=== PATIENT | male | born 1955 | race Caucasian/White ===

== ENCOUNTER → 2017-06-27 | Outpatient (CLI) | payer OTHER | END | disposition home or self-care (01) | LOC: C.LAB 09:08 | DX: Z02.83 Encounter for blood-alcohol and blood-drug test (principal) ==

== ENCOUNTER → 2018-03-06 | Outpatient (CLI) | payer OTHER ==
--- NOTE | 2018-03-06 15:49 | DIAGNOSTIC IMAGING REPORT ---
C-SPINE ROUTINE 4 OR 5 VIEWS HISTORY: 63 years-old Male LEFT SHOULDER PAIN, NECK PAIN ON LT SIDE acute left-sided neck pain with altered mental status COMPARISON: None available TECHNIQUE: 5 views of the cervical spine FINDINGS: No acute fracture or subluxation identified. Moderate intervertebral disc space narrowing with endplate spurring noted at C3-C4, C4-C5, C5-C6 and C6-C7. Mostly mild multilevel facet arthrosis. Degenerative changes result in at least moderate bony neuroforaminal stenosis on the right at C3-C4 and C4-C5 with mild multilevel bony neuroforaminal stenosis seen bilaterally. No prevertebral soft tissue swelling. Atherosclerosis of the carotid vasculature. Imaged lung apices appear clear. IMPRESSION: 1. No acute fracture or subluxation. 2. Degenerative changes as above. The above report was generated using voice recognition software. It may contain grammatical, syntax or spelling errors. Electronically signed by: Josue Foy M.D. 03/06/2018 3:47 PM Dictated Date/Time: 03/06/2018 3:45 PM
--- NOTE | 2018-03-06 15:56 | DIAGNOSTIC IMAGING REPORT ---
L SHOULDER MIN 2 VIEWS ROUTINE CLINICAL HISTORY: 63 years-old Male presenting with LEFT SHOULDER PAIN, NECK PAIN ON LT SIDE. TECHNIQUE: Internal rotation, external rotation, Grashey views of the left shoulder were obtained. COMPARISON: None. FINDINGS: Acromioclavicular and glenohumeral joints congruent. No acute fracture or malalignment. No advanced degenerative change. No radiographic soft tissue abnormality. IMPRESSION: No acute osseous injury. Electronically signed by: Wm Patino M.D. 03/06/2018 3:55 PM Dictated Date/Time: 03/06/2018 3:54 PM
== END | disposition home or self-care (01) ==
LOC: C.RADPV 15:16
PROVIDERS: ATTEND Family Medicine
DX: M25.512 Pain in left shoulder (principal); M54.2 Cervicalgia

== ENCOUNTER → 2018-03-09 | Outpatient (CLI) | payer OTHER ==
--- NOTE | 2018-03-09 21:04 | Myocardial Perfusion Study ---
Myocardial Perfusion Study Rpt Myocardial Perfusion Study Rpt Date of Service 03/09/2018 Myocardial Perfusion Study Rpt Procedure: 1. Myocardial perfusion study performed in multiple views/images 2. Exercise stress ECG Indications: 1. Chest pain Consent: Informed written consent was obtained prior to the procedure. Ordering physician: Dr. Villavicencio Procedural details: For the stress portion of the study, 32 mCi of technetium 99m Cardiolite, injected at 11:00 a.m. on 03/09/2018. 15 minutes following the injection, imaging of the heart was performed in multiple projections. For the rest portion of the study, 11.7 mCi technetium 99m Cardiolite was injected intravenously at 9:15 a.m. on 03/09/2018. 1 hour following the injection, imaging of the heart was performed in the same projections. Exercise stress ECG: Resting ECG demonstrated: Sinus rhythm at 68 bpm. RBBB. LAFB. Maximum heart rate: 130 bpm Resting blood pressure: 126/78 mmHg Maximum blood pressure: 180/64 mmHg Maximal, age-predicted heart rate: 82 % Significant ST changes: None Arrhythmia: None Symptoms: Chest tightness reported 4 minutes into exercise and resolved 4 minutes into recovery. Exercise terminated due to bilateral hip pain. Exercise treadmill: Patient exercised via standard Dylan protocol for a total of 5 minutes, attaining 7 METS. Findings: Rotating raw imaging demonstrated no significant lung uptake. There is no significant motion artifact. Heart size appeared normal. Myocardial perfusion appeared normal without significant fixed or reversible defect to suggest ischemia or infarct. Ejection fraction: 67 % Wall motion: Normal No significant transient ischemic dilation. Impression: 1. Normal myocardial perfusion at 82% MPHR. Target heart rate was not attained. Cannot rule out ischemic changes at faster heart rates. 2. Nondiagnostic exercise ECG as target heart rate was not attained. 3. Normal wall motion and LV systolic function. EF 67%. 4. No arrhythmia. 5. Chest tightness was reported with exercise and resolved during recovery. 6. No infarct suggested. 7. Appropriate blood pressure response to exercise.
== END | disposition home or self-care (01) ==
LOC: C.NUCL 08:44
PROVIDERS: ATTEND Family Medicine
DX: R07.9 Chest pain, unspecified (principal)

== ENCOUNTER 2018-04-02 13:26 | Emergency (ER) | payer OTHER ==
[~2018-04-02] VITALS: Ht 177.8 cm; Wt 71.3 kg
[2018-04-02 13:31] VITALS: TEMP 36.7
[2018-04-02 13:58] VITALS: O2SAT 100
[2018-04-02] MEDS ORDERED: MULTI-VITAMIN INFUSION INJ 10 ML, THIAMINE HCL INJ 100 MG, FoLIC ACID INJ 1 MG in SODIU... IV STA (14:05)
[2018-04-02] MEDS ORDERED: ONDANSETRON INJ 2 MG/ML 2 ML VIAL IV STA (14:07)
[2018-04-02] MEDS ORDERED: MoRPHine SULFATE 2 MG/ML CARP IV STA (14:07)
[2018-04-02 14:17] LABS: HEMATOCRIT 38.1 % (42-52); HEMOGLOBIN 13.5 g/dL (14.0-18.0); MEAN CORPUSCULAR HEMOGLOBIN 33.7 pg (25-34); MEAN CORPUSCULAR HGB CONC 35.4 g/dl (32-36); MEAN PLATELET VOLUME 7.8 fL (7.4-10.4); PLATELET COUNT 450 K/uL (130-400); WHITE BLOOD COUNT 5.84 K/uL (4.8-10.8)
[2018-04-02 14:25] LABS: INR 0.9 (0.9-1.1); PTT PATIENT 28.5 SECONDS (21.0-31.0)
[2018-04-02 14:32] LABS: BLOOD UREA NITROGEN 8 mg/dl (7-18); CALCIUM 8.5 mg/dl (8.5-10.1); CARBON DIOXIDE 25 mmol/L (21-32); CREATININE 0.99 mg/dl (0.60-1.40); GLUCOSE 92 mg/dl (70-99); POTASSIUM 3.6 mmol/L (3.5-5.1); SODIUM 140 mmol/L (136-145)
[2018-04-02 14:35] VITALS: Ht 177.8 cm; Wt 71.3 kg
[2018-04-02 14:37] LABS: CKMB 1.4 ng/ml (0.5-3.6)
--- NOTE | 2018-04-02 14:37 | DIAGNOSTIC IMAGING REPORT ---
HEAD WITHOUT CONTRAST (CT) CLINICAL HISTORY: 63 years-old Male with Stroke. Acute strokelike symptoms with confusion TECHNIQUE: Multiple axial CT images of the head were obtained without contrast. A dose lowering technique was utilized adhering to the principles of ALARA. CT DOSE: 537.48 mGy.cm COMPARISON: None. FINDINGS: No acute intracranial hemorrhage, midline shift, hydrocephalus, territorial ischemia or abnormal extra-axial collection. 9 x 9 mm colloid cyst within the region of the foramen of Monro is seen on image 14 series 2. No associated hydrocephalus identified. Moderate atrophy with some ex vacuo ventriculomegaly. Ill-defined areas of low-attenuation within the subcortical, deep and periventricular white matter suggests chronic microvascular ischemic changes. Cerebral vascular calcifications are seen at the level of the skull base. The calvarium is intact. Minimal mucosal thickening about the ethmoid and maxillary sinuses. Soft tissues are unremarkable. IMPRESSION: 1. No acute intracranial hemorrhage, midline shift or territorial ischemia. 2. 9 mm colloid cyst within the foramen of Monro is present without associated hydrocephalus. This lesion can be associated with positional headaches. 3. Atrophy with chronic microvascular ischemic changes. The above report was generated using voice recognition software. It may contain grammatical, syntax or spelling errors. Electronically signed by: Josue Foy M.D. 04/02/2018 2:36 PM Dictated Date/Time: 04/02/2018 2:30 PM
[2018-04-02] MEDS ORDERED: POTA99TA PO (15:00)
--- NOTE | 2018-04-02 15:02 | DIAGNOSTIC IMAGING REPORT ---
CHEST ONE VIEW PORTABLE HISTORY: Stroke COMPARISON: None. FINDINGS: The lungs are clear. Cardiac silhouette is normal in size. No pleural effusions. No pneumothorax. Old, healed bilateral rib fractures. IMPRESSION: No acute process. Electronically signed by: Charles Narvaez M.D. 04/02/2018 3:01 PM Dictated Date/Time: 04/02/2018 3:00 PM
[2018-04-02 16:46] VITALS: BP 145/88; PULSE 69; O2SAT 97
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
== END 2018-04-02 17:15 | disposition home or self-care (01) ==
LOC: C.EDB 13:27 → C.EDC 17:15
DX: F10.129 Alcohol abuse with intoxication, unspecified (principal); Y90.6 Blood alcohol level of 120-199 mg/100 ml; R07.2 Precordial pain; M79.602 Pain in left arm; I45.2 Bifascicular block; R03.0 Elevated blood-pressure reading, without diagnosis of hypertension; F17.200 Nicotine dependence, unspecified, uncomplicated

== ENCOUNTER 2020-10-04 10:34 | Inpatient (IN) ==
--- OUTSIDE RECORDS SUMMARY | 2020-10-04 10:40 | External Medical Summary | Continuity of Care Document ---
:1955 Author Name Mike Sandoval, Provider Address Unavailable Unavailable , Care Team Providers Name Role Phone Unavailable Unavailable Unavailable SAUD Sandoval, BRICE Unavailable Unavailable Saud Sandoval, Brice Unavailable [email or web address] Unavailable Unavailable Unavailable Assessments Assessed Problems:Encounter for preventive health examination Problems Memory loss (780.93) (R41.3) Left shoulder pain (719.41) (M25.512) Confusion and disorientation (780.97) (R41.0) Neck pain on left side (723.1) (M54.2) Chest pain (786.50) (R07.9) Allergies and Adverse Reactions No Known Drug Allergies (Allergy) Medications Aspirin 325 MG Oral Tablet; 1 tablet 4 times a day natalya hall M.D. Start: 06-Mar-2018 Refills: 0 Multi-Vitamins TABS; TAKE 1 TABLET DAILY. , M.DSergo Start: 02-Apr-2018 Refills: 0 Potassium 99 MG Oral Tablet; TAKE 1 TABLET DAILY. , M.DSergo Start: 02-Apr-2018 Refills: 0 Procedures Procedures not documented Immunizations Immunizations not documented Family History Father Family history of diabetes mellitus (V18.0) (Z83.3) Status: Active Family history of hypertension (V17.49) (Z82.49) Status: Act siomara Family history of cardiac disorder (V17.49) (Z82.49) Status: Active Mother Family history of High cholesterol (272.0) (E78.00) Status: Active Plan of Treatment Planned Observations Planned Goals not documented Results No Known Results Results not documented
--- NOTE | 2020-10-04 10:58 | Emergency Department Note ---
Impression & Plan Adult failure to thrive, Alcohol use, Hypokalemia, Hyponatremia, Ambulatory dysfunction ED Provider Note NAME: ISABEL CARMONA AGE: 65 SEX: M ARRIVES VIA: Ambulance INFORMANT: Patient, ED PROVIDER(S): Kory Todd MD CHIEF COMPLAINT: Weakness PLAN: Disposition: Admit MEDICAL DECISION MAKING: The patient is a pleasant 65-year-old gentleman with a past medical history of alcohol dependence/daily use who presents emergency department with general decline over the past several months which she reports got much more severe over the past several weeks noted by a friend last week that he had slurred speech who presents emergency department with generalized weakness where he feels he is unable to walk and keep his balance. He denies any history of alcohol withdrawal or alcohol withdrawal seizures but he is unable to tell me when the last time he went numerous days without drinking. To me he denies any recent fevers, chest pain, shortness of breath, chills, cough, congestion, nausea, vomit, diarrhea, urinary symptoms. Denies any known contacts with individuals diagnosed with COVID-19. Reports he has had frequent falls in the recent past several weeks may have hit his head. On arrival patient is cachectic, disheveled appearing in no acute distress, afebrile stable vital signs. He appears clinically dry. He has had no overt symptoms of acute alcohol withdrawal at this time. He is moving all extremities equally. [id number] is intact bilaterally. WBC 12.3, nonspecific. H/H 12.6/36.2 without recent values for comparison. Platelets 407, nonspecific. Chemistry without acidosis. Sodium 132 and potassium 3.4. BUN 26 consistent with the patient's clinically dry appearance. Total bilirubin 1.1 and direct bilirubin 0.6, nonspecific in the setting of benign abdomen. LFTs otherwise unremarkable. Ammonia was undetectable. CPK was not elevated. Troponin 0 0.02, within normal limits. TSH within normal limits. UA without convincing evidence of infection. Alcohol level was undetectable. COVID-19 RNA NAAT test was negative. CT of the head was negative for acute traumatic process. There is note of colloid cyst which appears unchanged. There is age-related involutional changes with progressed ex vacuo ventriculomegaly and chronic micro ischemic disease. Upon reevaluation the patient was feeling improved after IV fluid hydration with banana bag and normal saline. His speech was much more fluent and consistent with suspicion of some dysarthria related to his dry cracked mucous membranes/or opharynx. However, upon ambulatory trial the patient still exhibits significant imbalance and ambulatory dysfunction. Therefore reasonable to admit the patient for further evaluation and PT/OT. Patient was agreeable with this. Case was d/w Grace Noguera, [facility], with Dr. Whitley, [facility] will evaluate the patient for admission. Triage Nursing notes reviewed and agree them. Additional history obtained from EMS Prior medical records reviewed Vital Signs: reviewed and remarkable for no significant abnormalities Differential diagnosis: Infection, dehydration, metabolic abnormality, hypo/hyperglycemia, electrolyte disturbance, anemia, hypoxia, cardiac sources, intracerebral event, toxicologic, neurologic, as well as other pathologies. ER treatment provided: See below. Diagnostics interpreted by me: ECG: Normal sinus rhythm, 85 bpm, right bundle branch block, left anterior fascicular block, no overt ST elevation or depression, QTC 480, QRS 118. Cardiac Monitoring: An order for continuous cardiac monitoring was placed and demonstrated normal sinus rhythm, 85 bpm, no ectopy. Laboratory studies: See below Imaging studies: XR chest 1V portable HISTORY: 65 years-old Male Chest Pain acute atypical chest pain COMPARISON: Chest radiograph 04/02/2018 TECHNIQUE: Portable AP view of the chest FINDINGS: Cardiomediastinal and hilar silhouettes are within normal limits. No pneumothorax, pleural effusion, airspace consolidation or overt pulmonary edema. Remote appearing right-sided rib fractures. Subacute appearing nondisplaced frac tures are noted involving the posterior lateral left sixth through 10th ribs. IMPRESSION: 1. No acute cardiopulmonary abnormality. 2. Subacute appearing nondisplaced left posterolateral rib fractures. -- CT head/brain wo con CLINICAL HISTORY: 65 years-old Male with recurrent falls, weakness. Acute weakness with recurrent falls TECHNIQUE: Multiple axial CT images of the head were obtained without contrast. A dose lowering technique was utilized adhering to the principles of ALARA. CT DOSE: 537.48 mGy.cm COMPARISON: Head CT 04/02/2018 FINDINGS: No acute intracranial hemorrhage, midline shift, intra-axial mass, hydrocephalus, territorial ischemia or abnormal extra-axial collection. 9 mm colloid cyst within the foramen of Monro redemonstrated. Age-related involutional changes. Mild ventriculomegaly has slightly progressed from comparison, likely on an ex vacuo basis. Cerebral vascular calcifications. Patchy white matter hypodensities suggestive of chronic microvascular ischemic disease. The calvarium is intact. The paranasal sinuses, mastoid air cells, and middle ear cavities are clear. IMPRESSION: 1. No acute intracranial abnormality. 2. 9 mm colloid cyst within the foramen of Monro is redemonstrated. No definite hydrocephalus. 3. Age-related involutional changes with mildly progressed ex vacuo ventriculomegaly and chronic microvascular ischemic disease. Consultation(s): Case was d/w Grace Noguera, [facility], with Dr. Whitley, [facility] will evaluate the patient for admission. HPI: The patient is a pleasant 65-year-old gentleman with a past medical history of alcohol dependence/daily use who presents emergency department with general decline over the past several months which she reports got much more severe over the past several weeks noted by a friend last week that he had slurred speech who presents emergency department with generalized weakness where he feels he is unable to walk and keep his balance. He denies any history of alcohol withdrawal or alcohol withdrawal seizures but he is unable to tell me when the last time he went numerous days without drinking. To me he denies any recent fevers, chest pain, shortness of breath, chills, cough, congestion, nausea, vomit, diarrhea, urinary symptoms. Denies any known contacts with individuals diagnosed with COVID-19. Reports he has had frequent falls in the recent past several weeks may have hit his head. ROS: See above HPI for pertinent positives & negatives. A total of 10 systems reviewed and were otherwise negative. PAST MEDICAL HISTORY:See Below PAST SURGICAL HISTORY:See Below FAMILY HISTORY:See Below SOCIAL HISTORY:See Below HOME MEDICATIONS:See Below ALLERGIES:See Below VITALS:See Below PHYSICAL EXAMINATION: GENERAL: Awake, alert, unkempt, cachectic-appearing, in no distress HENT: Normocephalic, atraumatic. Oropharynx dry/cracked mucous membranes. EYES: Normal conjunctiva. Sclera non-icteric. EOMI. No nystamgus. PEARRL. NECK: Supple. No nuchal rigidity. FROM. No JVD. RESPIRATORY: Clear to auscultation. CARDIAC: Regular rate, normal rhythm. Extremities warm and well perfused. Pulses equal. ABDOMEN: Soft, non-distended. No tenderness to palpation. No rebound or gua rding. No masses. RECTAL: Deferred. MUSCULOSKELETAL: Chest examination reveals no tenderness. The back is symmetrical on inspection without obvious abnormality. There is no CVA tenderness to palpation. No joint edema. LOWER EXTREMITIES: Calves are equal size bilaterally and non-tender. No edema. No discoloration. NEURO: Normal sensorium. No sensory or motor deficits noted. Generalized weakness with 4+/5 strength x4 extremities. Intact [id number]. DTRs wnl. No clonus. SKIN: No rash or jaundice noted. Kory Todd MD Past Med/Surg History Medical History Alcohol use Social History Smoking Status: Current every day smoker Hx Alcohol Use: Yes Alcohol type: beer, wine and hard liquor Hx Substance Use: No Preferred Language: Maltese Communication Ability: Effective Business Services Sales Agent Required: No Beliefs That Will Affect Care: None Current Living Situation: Family Feels Safe at Home: Yes Safety Concerns: Feels Safe At This Time Assistive Devices: None Allergies Allergies Allergy/AdvReac Type Severity Reaction Status Date / Time No Known Allergies Allergy Unverified 10/04/20 12:32 Home Meds Home Medications Medication Instructions Recorded Confirmed No Known Home Medications 10/04/20 10/04/20 Results & Data (ED) Vital Signs Vital Signs - 24 hr 10/04/20 10:39 10/04/20 10:49 10/04/20 11:10 Temperature 36.6 C Temperature Source Oral Pulse Rate 96 H 83 90 Pulse Rate [Apical] Pulse Rate from SpO2 Sensor Respiratory Rate 14 20 23 Respiratory Effort / Characteristics Non-Labored Spontaneous Respiratory Depth Normal Respiratory Pattern Regular Blood Pressure 112/81 112/81 129/89 Blood Pressure [Right Arm] Blood Pressure Mean 84 91 94 Blood Pressure Mean [Right Arm] Pulse Oximetry 100 100 Oxygen Delivery Method Room Air Sepsis Recent Fever Within 48 Hours No Sepsis New/Unexplained Change in Mental Status No Sepsis Action Taken by Nursing No Action Required 10/04/20 11:11 10/04/20 11:30 10/04/20 11:37 Temperature Temperature Source Pulse Rate 85 93 H Pulse Rate [Apical] Pulse Rate from SpO2 Sensor 84 88 Respiratory Rate 17 21 Respiratory Effort / Characteristics Respiratory Depth Respiratory Pattern Blood Pressure 121/81 121/81 Blood Pressure [Right Arm] Blood Pressure Mean 95 95 Blood Pressure Mean [Right Arm] Pulse Oximetry 100 93 99 Oxygen Delivery Method Room Air Sepsis Recent Fever Within 48 Hours Sepsis New/Unexplained Change in Mental Status Sepsis Action Taken by Nursing 10/04/20 12:00 10/04/20 12:31 10/04/20 13:00 Temperature Temperature Source Pulse Rate 87 90 75 Pulse Rate [Apical] Pulse Rate from SpO2 Sensor 89 92 H Respiratory Rate 18 21 18 Respiratory Effort / Characteristics Respiratory Depth Respiratory Pattern Blood Pressure 134/91 127/85 137/83 Blood Pressure [Right Arm] Blood Pressure Mean 97 89 95 Blood Pressure Mean [Right Arm] Pulse Oximetry 98 100 100 Oxygen Delivery Method Sepsis Recent Fever Within 48 Hours Sepsis New/Unexplained Change in Mental Status Sepsis Action Taken by Nursing 10/04/20 13:30 10/04/20 14:00 10/04/20 15:11 Temperature 36.8 C Temperature Source Oral Pulse Rate 82 79 Pulse Rate [Apical] 78 Pulse Rate from SpO2 Sensor Respiratory Rate 20 18 18 Respiratory Effort / Characteristics Respiratory Depth Respiratory Pattern Blood Pressure 137/83 137/86 Blood Pressure [Right Arm] 147/83 H Blood Pressure Mean 101 99 Blood Pressure Mean [Right Arm] 104 Pulse Oximetry 99 99 Oxygen Delivery Method Room Air Sepsis Recent Fever Within 48 Hours Sepsis New/Unexplained Change in Mental Status Sepsis Action Taken by Nursing 10/04/20 15:55 10/04/20 16:00 10/04/20 16:30 Temperature Temperature Source Pulse Rate 67 73 Pulse Rate [Apical] 94 H Pulse Rate from SpO2 Sensor Respiratory Rate 17 20 20 Respiratory Effort / Characteristics Non-Labored Respiratory Depth Normal Respiratory Pattern Blood Pressure 145/85 H 139/87 Blood Pressure [Right Arm] 143/103 H Blood Pressure Mean 96 93 Blood Pressure Mean [Right Arm] 116 Pulse Oximetry 98 99 97 Oxygen Delivery Method Room Air Sepsis Recent Fever Within 48 Hours Sepsis New/Unexplained Change in Mental Status Sepsis Action Taken by Nursing 10/04/20 16:40 10/04/20 17:02 10/04/20 17:20 Temperature Temperature Source Pulse Rate 73 99 H 74 Pulse Rate [Apical] Pulse Rate from SpO2 Sensor 73 Respiratory Rate 19 23 21 Respiratory Effort / Characteristics Respiratory Depth Respiratory Pattern Blood Pressure 129/36 L Blood Pressure [Right Arm] Blood Pressure Mean 48 Blood Pressure Mean [Right Arm] Pulse Oximetry 98 100 Oxygen Delivery Method Sepsis Recent Fever Within 48 Hours Sepsis New/Unexplained Change in Mental Status Sepsis Action Taken by Nursing 10/04/20 17:30 10/04/20 18:06 Temperature Temperature Source Pulse Rate 74 99 H Pulse Rate [Apical] Pulse Rate from SpO2 Sensor 74 Respiratory Rate 20 24 Respiratory Effort / Characteristics Respiratory Depth Respiratory Pattern Blood Pressure 118/73 129/76 Blood Pressure [Right Arm] Blood Pressure Mean 79 105 Blood Pressure Mean [Right Arm] Pulse Oximetry 100 98 Oxygen Delivery Method Sepsis Recent Fever Within 48 Hours Sepsis New/Unexplained Change in Mental Status Sepsis Action Taken by Nursing Laboratory Data Attestation: I reviewed the patient's lab results. Result diagrams: 10/04/20 20:27 10/04/20 11:40 Lab Results 10/04/20 10/04/20 10/04/20 Range/Units 11:12 11:12 11:40 WBC 12.31 H (4.8-10.8) K/uL RBC 3.83 L (4.7-6.1) M/uL Hgb 12.6 L (14.0-18.0) g/dL Hct 36.2 L (42-52) % MCV 94.5 (80-100) fL MCH 32.9 (25-34) pg MCHC 34.8 (32-36) g/dL RDW Std Deviation 46.8 H (36.4-46.3) fL RDW Coeff of Martha 13.7 (11.5-14.5) % Plt Count 407 H (130-400) K/uL MPV 9.6 (7.4-10.4) fL Immature Gran % (Auto) 0.6 % Neut % (Auto) 75.1 % Lymph % (Auto) 11.4 % [place]andt % (Auto) 12.2 % Eos % (Auto) 0.3 % Baso % (Auto) 0.4 % Neut # (Auto) 9.24 H (1.4-6.5) K/uL Lymph # (Auto) 1.40 (1.2-3.4) K/uL [place]t # (Auto) 1.50 H (0.11-0.59) K/uL Eos # (Auto) 0.04 (0-0.5) K/uL Baso # (Auto) 0.05 (0-0.2) K/uL Immature Gran # (Auto) 0.08 H (0.00-0.02) K/uL PT (9.0-12.0) Seconds INR (0.9-1.1) APTT (21.0-31.0) Seconds PTT Ratio Sodium (136-145) mmol/L Potassium (3.5-5.1) mmol/L Chloride (98-107) mmol/L Carbon Dioxide (21-32) mmol/L Anion Gap (3-11) BUN (7-18) mg/dl Creatinine (0.6-1.4) mg/dl Est Cr Clr Drug Dosing ml/min Est GFR ( Amer) Est GFR (Non-Af Amer) BUN/Creatinine Ratio (10-20) Glucose (70-99) mg/dl Calcium (8.5-10.1) mg/dl Phosphorus (2.5-4.9) mg/dl Magnesium (1.8-2.4) mg/dl Total Bilirubin (0.2-1) mg/dl Direct Bilirubin (0-0.2) mg/dl AST (15-37) U/L ALT (12-78) U/L Alkaline Phosphatase (45-117) U/L Ammonia (11-32) umol/L Total Creatine Kinase (39-308) U/L Troponin I (0-0.045) ng/ml Total Protein (6.4-8.2) gm/dl Albumin (3.4-5.0) gm/dl Globulin (2.5-4.0) gm/dl Albumin/Globulin Ratio (0.9-2) Lipase (73-393) U/L TSH (0.300-4.500) uIu/ml Urine Color Urine Appearance (Clear) Urine pH (4.5-7.5) Ur Specific Baring (1.000-1.030) Urine Protein (Negative) Urine Glucose (UA) (Negative) Urine Ketones (Negative) Urine Blood (Negative) Urine Nitrite (Negative) Urine Bilirubin (Negative) Urine Urobilinogen (Negative) Ur Leukocyte Esterase (Negative) Urine WBC (Auto) (0-5) /hpf Urine RBC (Auto) (0-4) /hpf U Hyaline Cast (Auto) (0-5) /lpf U Epithel Cells (Auto) (0-5) /lpf Urine Bacteria (Auto) (Negative) Ethyl Alcohol mg/dL (0-3) mg/dl COVID-19 Eval [email or web address]-2, RNA, NAAT NEGATIVE (NEGATIVE) 10/04/20 10/04/20 10/04/20 Range/Units 11:40 11:40 11:40 WBC (4.8-10.8) K/uL RBC (4.7-6.1) M/uL Hgb (14.0-18.0) g/dL Hct (42-52) % MCV (80-100) fL MCH (25-34) pg MCHC (32-36) g/dL RDW Std Deviation (36.4-46.3) fL RDW Coeff of Martha (11.5-14.5) % Plt Count (130-400) K/uL MPV (7.4-10.4) fL Immature Gran % (Auto) % Neut % (Auto) % Lymph % (Auto) % [place]andt % (Auto) % Eos % (Auto) % Baso % (Auto) % Neut # (Auto) (1.4-6.5) K/uL Lymph # (Auto) (1.2-3.4) K/uL [place]t # (Auto) (0.11-0.59) K/uL Eos # (Auto) (0-0.5) K/uL Baso # (Auto) (0-0.2) K/uL Immature Gran # (Auto) (0.00-0.02) K/uL PT 11.4 (9.0-12.0) Seconds INR 1.1 (0.9-1.1) APTT 25.5 (21.0-31.0) Seconds PTT Ratio 0.9 Sodium 132 L (136-145) mmol/L Potassium 3.4 L (3.5-5.1) mmol/L Chloride 96 L (98-107) mmol/L Carbon Dioxide 26 (21-32) mmol/L Anion Gap 10.0 (3-11) BUN 26 H (7-18) mg/dl Creatinine 1.00 (0.6-1.4) mg/dl Est Cr Clr Drug Dosing 57.6 ml/min Est GFR ( Amer) 91.8 Est GFR (Non-Af Amer) 79.2 BUN/Creatinine Ratio 25.8 H (10-20) Glucose 111 H (70-99) mg/dl Calcium 9.3 (8.5-10.1) mg/dl Phosphorus 3.8 (2.5-4.9) mg/dl Magnesium 2.2 (1.8-2.4) mg/dl Total Bilirubin 1.1 H (0.2-1) mg/dl Direct Bilirubin 0.6 H (0-0.2) mg/dl AST 16 (15-37) U/L ALT 24 (12-78) U/L Alkaline Phosphatase 78 (45-117) U/L Ammonia < 10.0 L (11-32) umol/L Total Creatine Kinase 15 L (39-308) U/L Troponin I 0.020 (0-0.045) ng/ml Total Protein 7.3 (6.4-8.2) gm/dl Albumin 2.8 L (3.4-5.0) gm/dl Globulin 4.5 H (2.5-4.0) gm/dl Albumin/Globulin Ratio 0.6 L (0.9-2) Lipase 65 L (73-393) U/L TSH 1.370 (0.300-4.500) uIu/ml Urine Color Urine Appearance (Clear) Urine pH (4.5-7.5) Ur Specific Baring (1.000-1.030) Urine Protein (Negative) Urine Glucose (UA) (Negative) Urine Ketones (Negative) Urine Blood (Negative) Urine Nitrite (Negative) Urine Bilirubin (Negative) Urine Urobilinogen (Negative) Ur Leukocyte Esterase (Negative) Urine WBC (Auto) (0-5) /hpf Urine RBC (Auto) (0-4) /hpf U Hyaline Cast (Auto) (0-5) /lpf U Epithel Cells (Auto) (0-5) /lpf Urine Bacteria (Auto) (Negative) Ethyl Alcohol mg/dL (0-3) mg/dl COVID-19 Eval Order SARS-CoV-2, RNA, NAAT (NEGATIVE) 10/04/20 10/04/20 Range/Units 11:40 15:55 WBC (4.8-10.8) K/uL RBC (4.7-6.1) M/uL Hgb (14.0-18.0) g/dL Hct (42-52) % MCV (80-100) fL MCH (25-34) pg MCHC (32-36) g/dL RDW Std Deviation (36.4-46.3) fL RDW Coeff of Martha (11.5-14.5) % Plt Count (130-400) K/uL MPV (7.4-10.4) fL Immature Gran % (Auto) % Neut % (Auto) % Lymph % (Auto) % [place]t % (Auto) % Eos % (Auto) % Baso % (Auto) % Neut # (Auto) (1.4-6.5) K/uL Lymph # (Auto) (1.2-3.4) K/uL [place]t # (Auto) (0.11-0.59) K/uL Eos # (Auto) (0-0.5) K/uL Baso # (Auto) (0-0.2) K/uL Immature Gran # (Auto) (0.00-0.02) K/uL PT (9.0-12.0) Seconds INR (0.9-1.1) APTT (21.0-31.0) Seconds PTT Ratio Sodium (136-145) mmol/L Potassium (3.5-5.1) mmol/L Chloride (98-107) mmol/L Carbon Dioxide (21-32) mmol/L Anion Gap (3-11) BUN (7-18) mg/dl Creatinine (0.6-1.4) mg/dl Est Cr Clr Drug Dosing ml/min Est GFR ( Amer) Est GFR (Non-Af Amer) BUN/Creatinine Ratio (10-20) Glucose (70-99) mg/dl Calcium (8.5-10.1) mg/dl Phosphorus (2.5-4.9) mg/dl Magnesium (1.8-2.4) mg/dl Total Bilirubin (0.2-1) mg/dl Direct Bilirubin (0-0.2) mg/dl AST (15-37) U/L ALT (12-78) U/L Alkaline Phosphatase (45-117) U/L Ammonia (11-32) umol/L Total Creatine Kinase (39-308) U/L Troponin I (0-0.045) ng/ml Total Protein (6.4-8.2) gm/dl Albumin (3.4-5.0) gm/dl Globulin (2.5-4.0) gm/dl Albumin/Globulin Ratio (0.9-2) Lipase (73-393) U/L TSH (0.300-4.500) uIu/ml Urine Color Dark Yellow Urine Appearance Clear (Clear) Urine pH 5.5 (4.5-7.5) Ur Specific Baring 1.022 (1.000-1.030) Urine Protein Negative (Negative) Urine Glucose (UA) Negative (Negative) Urine Ketones 1+ H (Negative) Urine Blood Negative (Negative) Urine Nitrite Negative (Negative) Urine Bilirubin Negative (Negative) Urine Urobilinogen Positive H (Negative) Ur Leukocyte Esterase Trace H (Negative) Urine WBC (Auto) 1-5 (0-5) /hpf Urine RBC (Auto) 0-4 (0-4) /hpf U Hyaline Cast (Auto) 5-10 H (0-5) /lpf U Epithel Cells (Auto) 10-20 H (0-5) /lpf Urine Bacteria (Auto) Negative (Negative) Ethyl Alcohol mg/dL < 3.0 (0-3) mg/dl COVID-19 Eval Order SARS-CoV-2, RNA, NAAT (NEGATIVE) Administered Medications Enoxaparin Sodium (Enoxaparin Inj 40 Mg/0.4 Ml Syr) 40 mg SQ Q24H NIKO Stop: 11/03/20 21:59 Last Admin: 10/04/20 21:27 Dose: 40 mg Documented by: [id number] Lactated Ringer's (Lr) 1,000 mls @ 100 mls/hr IV .Q10H NIKO Stop: 11/03/20 20:18 Last Admin: 10/04/20 21:23 Dose: 100 mls/hr Documented by: [id number] Discontinued Medications Multivitamins 10 ml/ Thiamine HCl 100 mg/ Folic Acid 1 mg/Sodium Chloride 1,011.2 mls @ 1,011.2 mls/hr IV .Q1H ONE Stop: 10/04/20 12:09 Last Infusion: 10/04/20 14:20 Dose: 0 mls/hr Documented by: [id number] Admin: 10/04/20 12:51 Dose: 1,011.2 mls/hr Documented by: [id number] Sodium Chloride (Nss 1000ml) 1,000 mls @ 999 mls/hr IV .Q1H1M ONE Stop: 10/04/20 14:43 Last Infusion: 10/04/20 15:35 Dose: 0 mls/hr Documented by: [id number] Admin: 10/04/20 14:19 Dose: 999 mls/hr Documented by: [id number] Potassium Chloride (Potassium Chloride 20 Meq/15 Ml Udc) 20 meq PO NOW ONE Stop: 10/04/20 21:01 Last Admin: 10/04/20 21:27 Dose: 20 meq Documented by: [id number] Discharge Plan Visit Data Chief Complaint: Illness ED Provider: Kory Todd Discharge Problem: Adult failure to thrive, Alcohol use, Hypokalemia, Hyponatremia, Ambulatory dysfunction Patient Disposition: Admitted As Inpatient Discharge Instructions Interventions: ED Discharge Assessment Last Done: 10/04/20 19:33
[2020-10-04] MEDS ORDERED: MULTI-VITAMIN INFUSION 10 ML, THIAMINE HCL 100 MG, FOLIC ACID 1 MG in SODIUM CHLORIDE 0... IV ONE (11:10)
--- NOTE | 2020-10-04 11:34 | XRay Report ---
XR chest 1V portable HISTORY: 65 years-old Male Chest Pain acute atypical chest pain COMPARISON: Chest radiograph 04/02/2018 TECHNIQUE: Portable AP view of the chest FINDINGS: Cardiomediastinal and hilar silhouettes are within normal limits. No pneumothorax, pleural effusion, airspace consolidation or overt pulmonary edema. Remote appearing right-sided rib fractures. Subacute appearing nondisplaced fractures are noted involving the posterior lateral left sixth through 10th r ibs. IMPRESSION: 1. No acute cardiopulmonary abnormality. 2. Subacute appearing nondisplaced left posterolateral rib fractures. ACT 112: Negative or not required by law. The above report was generated using voice recognition software. It may contain grammatical, syntax o r spelling errors. Electronically signed by: Josue Foy M.D. 10/04/2020 11:33 AM
[2020-10-04 11:57] LABS: Basophils # (auto) 0.05 K/uL (0-0.2); Basophils % (auto) 0.4 %; Eosinophils # (auto) 0.04 K/uL (0-0.5); Eosinophils % (auto) 0.3 %; Hematocrit (blood only) 36.2 % (42-52); Hemoglobin 12.6 g/dL (14.0-18.0); Immature Granulocytes # (auto) 0.08 K/uL (0.00-0.02); Immature Granulocytes % (auto) 0.6 %; Lymphocytes % (auto) 11.4 %; Mean Corpuscular Hemoglobin 32.9 pg (25-34); Mean Corpuscular Hgb Conc 34.8 g/dL (32-36); Mean Corpuscular Volume 94.5 fL (80-100); Mean Platelet Volume 9.6 fL (7.4-10.4); Monocytes % (auto) 12.2 %; Neutrophils # (auto) 9.24 K/uL (1.4-6.5); Neutrophils % (auto) 75.1 %; Platelet Count 407 K/uL (130-400); RDW Coefficient of Variation 13.7 % (11.5-14.5); RDW Standard Deviation 46.8 fL (36.4-46.3); Red Blood Count 3.83 M/uL (4.7-6.1); White Blood Count 12.31 K/uL (4.8-10.8)
[2020-10-04 12:09] LABS: INR 1.1 (0.9-1.1); Partial Thromboplastin Ratio 0.9; Partial Thromboplastin Time 25.5 Seconds (21.0-31.0); Prothrombin Time 11.4 Seconds (9.0-12.0)
[2020-10-04 12:14] LABS: Albumin Level 2.8 gm/dl (3.4-5.0); BUN Creatinine Ratio 25.8 (10-20); Bilirubin Direct 0.6 mg/dl (0-0.2); Calcium 9.3 mg/dl (8.5-10.1); Creatinine Clr Calc Pharmacy 57.6 ml/min; Est GFR (African American) 91.8; Est GFR (Non-African American) 79.2; Magnesium 2.2 mg/dl (1.8-2.4); Potassium 3.4 mmol/L (3.5-5.1)
[2020-10-04 12:23] LABS: Albumin Globulin Ratio 0.6 (0.9-2); Bilirubin,Total 1.1 mg/dl (0.2-1); Globulin 4.5 gm/dl (2.5-4.0); Phosphorus 3.8 mg/dl (2.5-4.9); Thyroid Stimulating Hormone 1.37 uIu/ml (0.300-4.500); Total Protein 7.3 gm/dl (6.4-8.2); Troponin I 0.02 ng/ml (0-0.045)
--- NOTE | 2020-10-04 12:31 | CT Scan Report ---
CT head/brain wo con CLINICAL HISTORY: 65 years-old Male with recurrent falls, weakness. Acute weakness with recurrent fa lls TECHNIQUE: Multiple axial CT images of the head were obtained without contrast. A dose lowering tech nique was utilized adhering to the principles of ALARA. CT DOSE: 537.48 mGy.cm COMPARISON: Head CT 04/02/2018 FINDINGS: No acute intracranial hemorrhage, midline shift, intra-axial mass, hydrocephalus, territorial ischemi a or abnormal extra-axial collection. 9 mm colloid cyst within the foramen of Monro redemonstrated. A ge-related involutional changes. Mild ventriculomegaly has slightly progressed from comparison, likel y on an ex vacuo basis. Cerebral vascular calcifications. Patchy white matter hypodensities suggestiv e of chronic microvascular ischemic disease. The calvarium is intact. The paranasal sinuses, mastoid air cells, and middle ear cavities are clear . IMPRESSION: 1. No acute intracranial abnormality. 2. 9 mm colloid cyst within the foramen of Monro is redemonstrated. No definite hydrocephalus. 3. Age-related involutional changes with mildly progressed ex vacuo ventriculomegaly and chronic micr ovascular ischemic disease. ACT 112: Negative or not required by law. The above report was generated using voice recognition software. It may contain grammatical, syntax o r spelling errors. Electronically signed by: Josue Foy M.D. 10/04/2020 12:30 PM
[2020-10-04] MEDS ORDERED: SODIUM CHLORIDE 0.9% 1000ML 1,000 ML IV ONE (13:43)
[2020-10-04 16:17] LABS: Appearance Urine Clear (Clear); Bacteria Urine Automated Negative (Negative); Blood Urine Negative (Negative); Color Urine Dark Yellow; Glucose Urine UA Negative (Negative); Ketones Urine 1+ (Negative); Leukocyte Esterase Urine Trace (Negative); Nitrite Urine Negative (Negative); Protein Urine Negative (Negative); RBC Urine Automated 0-4 /hpf (0-4); Specific Gravity Urine 1.022 (1.000-1.030); Urobilinogen Urine Positive (Negative); pH Urine 5.5 (4.5-7.5)
[2020-10-04 16:35] LABS: Bilirubin Urine Negative (Negative); Ictotest Urine Negative (Negative)
--- NOTE | 2020-10-04 18:06 | History & Physical Report ---
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 No definite hydrocephalus. PT/OT (2) Abnormality of tongue: Patient noticed this over the last few months. He also has dysphagia and dysarthria. Concern for malignancy given history of heavy smoking and alcohol use Consult ENT for biopsy/evaluation Full liquid diet - patient reports trouble swallowing solids but not liquids (3) Alcohol use: Ongoing, patient drinks 3-5 beers per day which he says is a reduction in intake Supplement thiamine and folate Monitor for withdrawal symptoms - patient reports he has not had alcohol in about 3 days and has never had withdrawal symptoms in the past (4) Leukocytosis: Unclear etiology, urine does not appear infected, CXR without acute finding. Afebrile. If leukocytosis persists after adequate hydration could consider blood cultures. (5) Thrombocytosis: Possibly chronic, last value in March was 450 (6) Hypokalemia: Replaced (7) Hyponatremia: Na 133, recheck am . (8) DVT prophylaxis: Enoxaparin History of Present Illness Mr. Keller presents for failure to thrive, brought by a friend. He has felt generally weak with loss of appetite for months. He also has had increased dysarthria and difficulty swallowing solids. He denies aches, chills, fevers, chest pain, palpitations, sob, cough, n/v/d, dysuria, hesitancy, or rash. Pmhx: none Social: lives alone, retired [employer], 2 ppd smoker x 40 years, drinks 3-5 beers/day which is a decrease from previous heavier drinking, Family: Alzheimers, stroke Primary Care Provider: Madhuri Villavicencio MD Allergies Allergy/AdvReac Type Severity Reaction Status Date / Time No Known Allergies Allergy Unverified 10/04/20 12:32 Home Medications Home Medications Medication Instructions Recorded Confirmed Type No Known Home Medications 10/04/20 10/04/20 History Past Med/Surg History Social History Smoking Status: Current every day smoker Preferred Language: Chinese Feels Safe at Home: Yes Review of Systems Review of Systems: All systems reviewed & are unremarkable except as noted in HPI & below Physical Exam Physical Exam: General: no distress, cachectic Eyes: normal inspection, PERLL EENT: + Tongue is deformed and patient is unable to protrude his tongue from his mouth Respiratory: chest non tender, clear to auscultation, normal breath sounds, no respiratory distress, no accessory muscle use Cardiac: regular rate and rhythm, no rub or gallop, no murmur, no edema, no jvd GI/: active bowel sounds, no abd pain or tenderness, soft, non distended Extremities: normal range of motion, normal strength, non tender Neuro/Psych: alert and oriented x 3, normal mood and affect, unable to assess tongue midline due to deformity otherwise CN II - XII intact, dysarthric Skin: normal color, dry Results & Data Results & Data ([facility]) Vital Signs (Past 12 Hours) Vital Signs Temp Pulse Pulse Resp BP BP Pulse Ox 10/04/20 17:30 74 20 118/73 100 10/04/20 17:20 74 21 100 10/04/20 17:02 99 H 23 129/36 L 98 10/04/20 16:40 73 19 10/04/20 16:30 73 20 139/87 97 10/04/20 16:00 67 20 145/85 H 99 10/04/20 15:55 94 H 17 143/103 H 98 10/04/20 15:11 36.8 C 78 18 147/83 H 99 10/04/20 14:00 79 18 137/86 99 10/04/20 13:30 82 20 137/83 10/04/20 13:00 75 18 137/83 100 10/04/20 12:31 90 21 127/85 100 10/04/20 12:00 87 18 134/91 98 10/04/20 11:37 93 H 21 121/81 99 10/04/20 11:30 85 17 121/81 93 10/04/20 11:11 100 10/04/20 11:10 90 23 129/89 100 10/04/20 10:49 36.6 C 83 20 112/81 100 10/04/20 10:39 96 H 14 112/81 Supervising Physician Co-Signing Physician Notes I supervised Grace Noguera NP on this patient's care. I examined the patient today independently of her. I discussed the plan of care with her with the plan being as written in her note except for any following changes/exceptions: None. 65yo M w/ failure to thrive due in part to significant alcohol consumption. Tongue lesion and dysarthria are concerning for tongue malignancy. Will monitor for withdrawal, get PT/OT, and ENT consult for the tongue lesion. PG Care Time/CCT Total # of Minutes Spent Total Time Spent with Patient: Total time spent is greater than 50% in coordination of care (as documented) at patient's floor/unit and/or counseling patient: Coding Level of Care Code 12542 Initial Inpt Care Lvl 3 Diagnoses Adult failure to thrive R62.7 Abnormality of tongue Q38.3 Alcohol use Z78.9 Leukocytosis D72.829 Thrombocytosis D47.3 Hypokalemia E87.6 Hyponatremia E87.1 DVT prophylaxis Z29.9
[2020-10-04] MEDS ORDERED: POLYETHYLENE (MIRALAX) 17 GM PACK PO PRN (20:19)
[2020-10-04] MEDS ORDERED: ACETAMINOPHEN 325 MG TAB PO PRN (20:19)
--- NOTE | 2020-10-04 20:27 | Electrocardiogram Report ---
Test Reason : Blood Pressure : / mmHG Vent. Rate : 085 BPM Atrial Rate : 085 BPM P-R Int : 136 ms QRS Dur : 118 ms QT Int : 404 ms P-R-T Axes : 078 -70 065 degrees QTc Int : 480 ms Normal sinus rhythm Low voltage QRS Right bundle branch block Left anterior fascicular block Bifascicular block Cannot rule out Inferior infarct (cited on or before 02-APR-2018) Abnormal ECG When compared with ECG of 02-APR-2018 13:48, No significant change Confirmed by Benjamin Pittman ([id number]) on 10/04/2020 8:27:09 PM Referred By: REFERRED SELF Confirmed By:Benjamin Pittman
[2020-10-04 20:36] LABS: Basophils # (auto) 0.04 K/uL (0-0.2); Basophils % (auto) 0.5 %; Eosinophils # (auto) 0.04 K/uL (0-0.5); Eosinophils % (auto) 0.5 %; Hematocrit (blood only) 30.6 % (42-52); Hemoglobin 10.8 g/dL (14.0-18.0); Immature Granulocytes # (auto) 0.04 K/uL (0.00-0.02); Immature Granulocytes % (auto) 0.5 %; Lymphocytes # (auto) 1.64 K/uL (1.2-3.4); Lymphocytes % (auto) 18.8 %; Mean Corpuscular Hemoglobin 33.3 pg (25-34); Mean Corpuscular Hgb Conc 35.3 g/dL (32-36); Mean Corpuscular Volume 94.4 fL (80-100); Mean Platelet Volume 9.5 fL (7.4-10.4); Monocytes # (auto) 1.19 K/uL (0.11-0.59); Monocytes % (auto) 13.6 %; Neutrophils # (auto) 5.79 K/uL (1.4-6.5); Neutrophils % (auto) 66.1 %; Platelet Count 366 K/uL (130-400); RDW Coefficient of Variation 13.5 % (11.5-14.5); RDW Standard Deviation 46.7 fL (36.4-46.3); Red Blood Count 3.24 M/uL (4.7-6.1); White Blood Count 8.74 K/uL (4.8-10.8)
[2020-10-04] MEDS ORDERED: POTASSIUM CHLORIDE 20 MEQ/15 ML UDC PO ONE (21:00)
[2020-10-04] MEDS: LACTATED RINGER'S 1,000 ML IV SCH (21:23)
[2020-10-04] MEDS: ENOXAPARIN INJ 40 MG/0.4 ML SYR SQ SCH (21:27)
[2020-10-05] MEDS: LACTATED RINGER'S 1,000 ML IV SCH (06:23)
[2020-10-05 07:05] LABS: Hematocrit (blood only) 28.8 % (42-52); Hemoglobin 9.9 g/dL (14.0-18.0); Mean Corpuscular Hemoglobin 32.7 pg (25-34); Mean Corpuscular Hgb Conc 34.4 g/dL (32-36); Mean Platelet Volume 9.4 fL (7.4-10.4); Platelet Count 342 K/uL (130-400); RDW Coefficient of Variation 13.8 % (11.5-14.5); RDW Standard Deviation 47.3 fL (36.4-46.3); Red Blood Count 3.03 M/uL (4.7-6.1); White Blood Count 6.22 K/uL (4.8-10.8)
[2020-10-05 08:01] LABS: BUN Creatinine Ratio 21.2 (10-20); Creatinine Clr Calc Pharmacy 71.2 ml/min; Est GFR (African American) 108.9; Est GFR (Non-African American) 93.9; Potassium 2.8 mmol/L (3.5-5.1)
[2020-10-05] MEDS: THIAMINE HCL 100 MG TAB PO SCH (08:42)
[2020-10-05] MEDS: FOLIC ACID 400 MCG TAB PO SCH (08:42)
--- NOTE | 2020-10-05 16:03 | Hospitalist Progress Note ---
Date of Service October 05, 2020 Assessment & Plan (1) Adult failure to thrive: Patient with decreased strength and appetite over the last few months due to alcohol. 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 No definite hydrocephalus. - PT/OT - Alcohol cessation (2) Abnormality of tongue: Patient noticed this over the last few months. He also has dysphagia and dysarthria. Concern for malignancy given history of heavy smoking and alcohol use - Consult ENT for biopsy/evaluation - Full liquid diet - patient reports trouble swallowing solids but not liquids (3) Anemia: Hgb generally low-normal at 13.5. Down from 12.5 on admission to 9.9 today. Suspect poor bone marrow response. Will get anemia labs in the AM. - Monitor (4) Alcohol use: Ongoing, patient drinks 3-5 beers per day which he says is a reduction in intake. Per his son, I - Supplement thiamine and folate - Monitor for withdrawal symptoms - patient reports he has not had alcohol in about 3 days and has never had withdrawal symptoms in the past (5) DVT prophylaxis: Enoxaparin Admission and Anticipated Discharge Date Admission Date: October 04, 2020 Subjective No major concerns today. He is fairly hungry. Reports no fevers/chills, chest pain, shortness of breath, abdominal pain, nausea, or vomiting. Physical Exam Constitutional: WD/WN, vitals as above Eyes: EOM intact bilaterally; no conjunctival abnormality ENMT: Mouth / Teeth: 1. Growth on the left side of the tongue. Neck: trachea midline, no thyromegaly + abnormal visual inspection and no tracheal deviation Respiratory: normal respiratory effort, lungs clear to auscultation no respiratory distress Cardiovascular: RRR, no murmur, no edema Gastrointestinal (Abdomen): Inspection/Auscultation: abdomen normal to inspection; abdomen not distended Musculoskeletal: no cyanosis or clubbing, extremities motor strength 5/5 Skin: no rashes, warm and dry Neurologic: moves all extremities and awake Psychiatric: Orientation: alert, oriented to person and cooperative Results & Data Results & Data ([facility]) Vital Signs (Past 12 Hours) Vital Signs Temp Pulse Resp BP Pulse Ox 10/05/20 15:51 37.2 C 72 17 114/71 98 10/05/20 07:40 36.8 C 71 16 120/75 99 PG Care Time/CCT Total # of Minutes Spent Total Time Spent with Patient: Total time spent is greater than 50% in coordination of care (as documented) at patient's floor/unit and/or counseling patient: Coding Level of Care Code 46933 Subseq Hosp Care Lvl 3 Diagnoses Adult failure to thrive R62.7 Abnormality of tongue Q38.3 Anemia D64.9 Alcohol use Z78.9 DVT prophylaxis Z29.9
[2020-10-05] MEDS: POTASSIUM CHLORIDE 40 MEQ in LACTATED RINGER'S 1,000 ML IV SCH (17:04)
[2020-10-05] MEDS: POTASSIUM CHLORIDE / WTR 10 MEQ/100 ML PLCT IV SCH ×4 (17:04→23:23)
[2020-10-05] MEDS: MAGNESIUM SULFATE / D5W 1 GM/100 ML BAG IV SCH ×3 (17:04→21:16)
[2020-10-05] MEDS: ENOXAPARIN INJ 40 MG/0.4 ML SYR SQ SCH (21:16)
[2020-10-06] MEDS: POTASSIUM CHLORIDE 40 MEQ in LACTATED RINGER'S 1,000 ML IV SCH ×3 (05:05→19:01)
[2020-10-06 07:29] LABS: Hematocrit (blood only) 26.2 % (42-52); Hemoglobin 9.1 g/dL (14.0-18.0); Mean Corpuscular Hemoglobin 32.9 pg (25-34); Mean Corpuscular Hgb Conc 34.7 g/dL (32-36); Mean Corpuscular Volume 94.6 fL (80-100); Mean Platelet Volume 9.7 fL (7.4-10.4); Platelet Count 359 K/uL (130-400); RDW Coefficient of Variation 13.4 % (11.5-14.5); RDW Standard Deviation 46.5 fL (36.4-46.3); Red Blood Count 2.77 M/uL (4.7-6.1); White Blood Count 5.41 K/uL (4.8-10.8)
[2020-10-06] MEDS ORDERED: COUGH DROP (SUGAR FREE) LOZ 24 LOZ/1 BOX BUCCAL ONE (07:51)
[2020-10-06] MEDS: THIAMINE HCL 100 MG TAB PO SCH (07:52)
[2020-10-06] MEDS: FOLIC ACID 400 MCG TAB PO SCH (07:52)
[2020-10-06] MEDS ORDERED: COUGH DROP (SUGAR FREE) LOZ 24 LOZ/1 BOX BUCCAL PRN (07:53)
[2020-10-06 08:15] LABS: Albumin Globulin Ratio 0.6 (0.9-2); BUN Creatinine Ratio 10.2 (10-20); Bilirubin,Total 0.6 mg/dl (0.2-1); Calcium 8.2 mg/dl (8.5-10.1); Est GFR (African American) 114.3; Est GFR (Non-African American) 98.6; Globulin 3.3 gm/dl (2.5-4.0); Phosphorus 1.9 mg/dl (2.5-4.9); Potassium 3.4 mmol/L (3.5-5.1); Total Protein 5.3 gm/dl (6.4-8.2)
--- NOTE | 2020-10-06 13:47 | Hospitalist Progress Note ---
Date of Service October 06, 2020 Assessment & Plan (1) Abnormality of tongue: Patient noticed this over the last few months. He also has dysphagia and dysarthria. Concern for malignancy given history of heavy smoking and alcohol use - Mechanical soft diet - patient reports trouble swallowing solids but not liquids, so will keep diet soft. - Consult ENT for biopsy/evaluation -> Still pending; typing secretary re-contacted Dr. Marie on 10/06 as did I. (2) Adult failure to thrive: Patient with decreased strength and appetite over the last few months due to alcohol. 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 No definite hydrocephalus. - PT/OT - Alcohol cessation (3) Anemia: Hgb generally low-normal at 13.5. Down from 12.5 on admission to 9.9 today. Suspect poor bone marrow response. Will get anemia labs in the AM. - Monitor (4) Alcohol use: Ongoing, patient drinks 3-5 beers per day which he says is a reduction in intake. Per his son, I - Supplement thiamine and folate - Monitor for withdrawal symptoms - patient reports he has not had alcohol in about 3 days and has never had withdrawal symptoms in the past. - None seen today. (5) DVT prophylaxis: Enoxaparin Admission and Anticipated Discharge Date Admission Date: October 04, 2020 Subjective No focal concerns today. He is having some pain in the top of his tongue. Reports no fevers/chills, chest pain, shortness of breath, abdominal pain, nausea, or vomiting. Physical Exam Constitutional: WD/WN, vitals as above Eyes: EOM intact bilaterally; no conjunctival abnormality ENMT: Mouth / Teeth: 1. Mass Neck: trachea midline, no thyromegaly + abnormal visual inspection and no tracheal deviation Respiratory: normal respiratory effort, lungs clear to auscultation no respiratory distress Cardiovascular: RRR, no murmur, no edema Gastrointestinal (Abdomen): Inspection/Auscultation: abdomen normal to inspection; abdomen not distended Musculoskeletal: no cyanosis or clubbing, extremities motor strength 5/5 Skin: no rashes, warm and dry Neurologic: moves all extremities and awake Psychiatric: Orientation: alert, oriented to person and cooperative Results & Data Results & Data ([facility]) Vital Signs (Past 12 Hours) Vital Signs Temp Pulse Resp BP Pulse Ox 10/06/20 07:38 36.9 C 78 16 124/74 96 PG Care Time/CCT Total # of Minutes Spent Total Time Spent with Patient: Total time spent is greater than 50% in coordination of care (as documented) at patient's floor/unit and/or counseling patient: Coding Level of Care Code 06329 Subseq Hosp Care Lvl 2 Diagnoses Abnormality of tongue Q38.3 Adult failure to thrive R62.7 Anemia D64.9 Alcohol use Z78.9 DVT prophylaxis Z29.9
[2020-10-06] MEDS ORDERED: POTASSIUM PHOS 3 MMOL/1 ML INFUSION IV STA (13:48)
[2020-10-06] MEDS ORDERED: POTASSIUM PHOSPHATE 24 MMOL in SODIUM CHLORIDE 0.9% 500 ML IV ONE (14:15)
[2020-10-06] MEDS ORDERED: IOVERSOL 100ml IV ONE (16:28)
--- NOTE | 2020-10-06 16:51 | CT Scan Report ---
CT soft tissue neck w con HISTORY: 65 years-old Male Tongue mass patient presents with a mass of the tongue COMPARISON: None TECHNIQUE: Multiple axial CT images of the soft tissues of the neck were obtained following the intra venous administration of 94 mL Optiray 320. A dose lowering technique was used consistent with the pr incipals of DINA. FINDINGS: There is a large centrally necrotic and peripherally enhancing mass within the left aspect of the ora l cavity which appears to involve the tongue and buccal mucosa extending into the left submandibular tissues overall measuring approximately 3.2 x 5.6 x 5.0 cm (please see bookmarks). The mass crosses t he midline at the level of the mid oral cavity. Mild soft tissue thickening within left aspect of the palate may reflect disease extension. The mass extends into the musculature within the floor of the oral cavity and causes mass effect with partial effacement of the left vallecula and piriform sinus e xtending into the palatine tonsils on the left. Pathologic 0.9 x 1.9 cm left submandibular lymph node . The airway is patent. The glottis and subglottic airway is unremarkable. Unremarkable thyroid. No a dditional pathologic adenopathy identified. Lung apices are clear. No pneumothorax or pulmonary metastasis identified. The imaged intracranial st ructures are unremarkable. Mastoid air cells are clear. Mild mucoperiosteal thickening of the paranas al sinuses. Multilevel degenerative changes of the cervical spine. No suspicious bone lesions identif ied. Mixed plaque of the carotid bulbs and proximal internal carotid arteries. IMPRESSION: 1. Large complex and centrally necrotic mass of the oral cavity centered within the left aspect of th e tongue crosses midline, measures up to approximately 5.6 cm and involves the buccal mucosa and exte nds into the tongue base and floor of the mouth causing mass effect and partial effacement of the lef t vallecula and piriform sinus. Primary head and neck carcinoma such as squamous cell carcinoma is th e diagnosis of exclusion. 2. Pathologic left level I lymph node suggests lymphatic metastasis. 3. Patent airway. ACT 112: Negative or not required by law. The above report was generated using voice recognition software. It may contain grammatical, syntax o r spelling errors. Electronically signed by: Josue Foy M.D. 10/06/2020 4:50 PM
[2020-10-06] MEDS: ENOXAPARIN INJ 40 MG/0.4 ML SYR SQ SCH (22:05)
[2020-10-07] MEDS: POTASSIUM CHLORIDE 40 MEQ in LACTATED RINGER'S 1,000 ML IV SCH ×3 (00:21→20:59)
[2020-10-07] MEDS: THIAMINE HCL 100 MG TAB PO SCH (09:17)
[2020-10-07] MEDS: FOLIC ACID 400 MCG TAB PO SCH (09:17)
--- NOTE | 2020-10-07 09:28 | ENT Consultation ---
Date of Consultation October 07, 2020 Assessment & Plan (1) Squamous cell carcinoma of dorsal tongue: 65-year-old male with a [id number] SCC of the tongue and floor of mouth. - biopsy performed as described above. - patient airway is currently stable. That said with the start of treatment w hether it be surgical or chemoradiation he will need a tracheotomy. In addition with his malnutrition and failure to thrive due to the inability to tolerate p.o. he should also have a PEG tube placed. - he will need an awake tracheotomy as direct laryngoscopy for intubation will likely cause the tongue to fall part from his obvious necrosis - discussed the patient with my partner at [facility], Dr. Guy, head neck surgery. He recommended transferring the patient to [facility] for awake trach and PEG placement. - discussed with admitting team. Present on Admission?: Yes History of Present Illness Attending Physician: Osito Martinez History of Present Illness 65-year-old male who was admitted on Monday for failure to thrive, inability to tolerate p.o. intake. Patient states this has been going on for approximately 2 months now. Otolaryngology was consulted last night for evaluation of his oral cavity as admitting hospitalist noted a tongue lesion. CT scan of the neck was obtained at my direction. This revealed a 5 cm oral tongue/floor of mouth tumor with a left level 3 lymph node noted as well. The tumor is noted to be necrotic on CT scan. Patient states that he has no difficulty breathing but can only tolerate liquids. He smokes a pack a day of cigarettes for approximately the past 50 years. In addition he drinks 3-6 beers daily. Denies any specific alleviating or exacerbating factors. No other signs or symptoms other than was described above. Allergies Allergy/AdvReac Type Severity Reaction Status Date / Time No Known Allergies Allergy Unverified 10/04/20 12:32 Home Medications Medication Instructions Recorded Confirmed Type No Known Home Medications 10/04/20 10/04/20 History Patient History Medical History Alcohol use Social History Smoking Status: Current every day smoker Hx Alcohol Use: Yes Alcohol type: beer, wine and hard liquor Hx Substance Use: No Preferred Language: Tamazight Communication Ability: Effective Board Saw Runner Required: No Beliefs That Will Affect Care: None Current Living Situation: Family Feels Safe at Home: Yes Safety Concerns: Feels Safe At This Time Assistive Devices: None Review of Systems Review of Systems: All systems reviewed & are unremarkable except as noted in HPI & below Physical Exam Physical Exam: Procedure: Fiberoptic laryngoscopy was performed which revealed left-sided tongue base edema versus mass. The nasopharynx was clear. Vocal cord mobility was normal. His airway was patent. There are no hypo pharyngeal or laryngeal masses. Patient tolerated procedure well. Procedure: After obtaining informed consent from the patient time-out was held and procedure verified. Biopsy of the oral tongue mass was performed. First 2% lidocaine with 1 to [id number] epinephrine was injected into the fungating mass on the left lateral portion of the oral tongue approximately [address] After allowing time for local to take effect numerous biopsies with a ethmoid forceps were taken and placed into formalin. Hemostasis was assured with pressure as well as silver nitrate. Patient tolerated procedure well. Constitutional: + ill appearing and + thin Eyes: PERRL, conjunctivae normal, anicteric sclerae ENMT: Tongue immobility noted. There is a large fungating an ulcerative mass of the left ventral surface of the tongue involving the floor of mouth with obvious necrosis of both of these locations. Tumor extends posteriorly towards the base of the tongue. Neck: trachea midline, no thyromegaly Respiratory: normal respiratory effort, lungs clear to auscultation Skin: no rashes, warm and dry Lymphatic: Left level 3 palpable lymph node Results & Data ([facility]) Vital Signs (Past 12 Hours) Vital Signs Temp Pulse Resp BP Pulse Ox 10/07/20 07:03 36.8 C 75 16 126/75 97 10/06/20 23:19 37.5 C 77 20 127/77 98
[2020-10-07 10:06] LABS: Hematocrit (blood only) 25.1 % (42-52); Hemoglobin 8.9 g/dL (14.0-18.0); Mean Corpuscular Hemoglobin 33.6 pg (25-34); Mean Corpuscular Hgb Conc 35.5 g/dL (32-36); Mean Corpuscular Volume 94.7 fL (80-100); Mean Platelet Volume 9.2 fL (7.4-10.4); Platelet Count 319 K/uL (130-400); RDW Coefficient of Variation 13.7 % (11.5-14.5); RDW Standard Deviation 47.3 fL (36.4-46.3); Red Blood Count 2.65 M/uL (4.7-6.1); White Blood Count 5.23 K/uL (4.8-10.8)
[2020-10-07 10:33] LABS: BUN Creatinine Ratio 7.8 (10-20); Calcium 7.6 mg/dl (8.5-10.1); Creatinine Clr Calc Pharmacy 81.2 ml/min; Est GFR (African American) 114.9; Est GFR (Non-African American) 99.2; Magnesium 1.4 mg/dl (1.8-2.4); Potassium 3.9 mmol/L (3.5-5.1)
[2020-10-07 10:37] LABS: Phosphorus 2.8 mg/dl (2.5-4.9)
[2020-10-07] MEDS: ENOXAPARIN INJ 40 MG/0.4 ML SYR SQ SCH (20:59)
--- NOTE | 2020-10-07 22:54 | Discharge Summary ---
Date of Service October 07, 2020 Principal Diagnosis abnormlity of tongue Discharge Exam Constitutional: WD/WN, vitals as above Eyes: EOM intact bilaterally; no conjunctival abnormality Neck: trachea midline, no thyromegaly + abnormal visual inspection and no tracheal deviation Respiratory: normal respiratory effort, lungs clear to auscultation no respiratory distress Cardiovascular: RRR, no murmur, no edema Gastrointestinal (Abdomen): Inspection/Auscultation: abdomen normal to inspection; abdomen not distended Musculoskeletal: no cyanosis or clubbing, extremities motor strength 5/5 Skin: no rashes, warm and dry Neurologic: moves all extremities and awake Psychiatric: Orientation: alert, oriented to person and cooperative Discharge Data Allergies Allergy/AdvReac Type Severity Reaction Status Date / Time No Known Allergies Allergy Unverified 10/04/20 12:32 Consultations 10/04/20 16:12 ED Decision to Admit Stat 10/04/20 20:19 Consult Case Management - Discharge Planning Routine Consult Otolaryngology (Head and Neck) Routine 10/07/20 21:49 Burn CD for patient Stat Ordered Studies 10/04/20 11:10 CT head/brain wo con Stat 10/06/20 15:06 CT soft tissue neck w con Urgent Hospital Course (1) Abnormality of tongue: Patient noticed this over the last few months. He also has dysphagia and dysarthria. Concern for malignancy given history of heavy smoking and alcohol use - Mechanical soft diet - patient reports trouble swallowing solids but not liquids, so will keep diet soft. - Consult ENT for biopsy/evaluation -> will need transfer to tertiary center for peg tube placemnt and trach as concerned over tongue becoming necrotic and causing asphyxiation. (2) Adult failure to thrive: Patient with decreased strength and appetite over the last few months due to alcohol. 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 No definite hydrocephalus. - PT/OT - Alcohol cessation (3) Anemia: Hgb generally low-normal at 13.5. Down from 12.5 on admission to 9.9 today. Suspect poor bone marrow response. Will get anemia labs in the AM. - Monitor (4) Alcohol use: Ongoing, patient drinks 3-5 beers per day which he says is a reduction in intake. Per his son, I - Supplement thiamine and folate - Monitor for withdrawal symptoms - patient reports he has not had alcohol in about 3 days and has never had withdrawal symptoms in the past. - None seen today. (5) DVT prophylaxis: Enoxaparin Total Time Total Time Spent Total Time Spent (In Minutes): 32 Total Time Includes: Examination of the Patient, Discharge Planning and Medication Reconciliation Discharge Plan Discharge Items Patient Disposition: Transfer Acute Care Hospital Reason For Visit: FAILURE TO THRIVE Discharge Diagnosis: scc of tongue Activity: Per Instructions section Non-emergency contact: Primary Care Provider Call non-emergency contact if: you have any medication questions and your symptoms worsen Follow-up/Referrals: Madhuri Villavicencio MD [Primary Care Provider] - Sunny Eastman DO [Physician] - (CALL THE OFFICE ONCE PATIENT IS DISCHARGED TO SET UP A CONSULT. ) Diet: Other - See Diet Comment Addtl Attending Provider Instructions: Squamous cell carcinoma of dorsal tongue: 65-year-old male with a [id number] SCC of the tongue and floor of mouth. Patient noticed this over the last few months. He also has dysphagia and dysarthria. Concern for malignancy given history of heavy smoking and alcohol use - Mechanical soft diet - patient reports trouble swallowing solids but not liquids, so will keep diet soft. - Consult ENT for biopsy/evaluation : - biopsy performed as described above. - patient airway is currently stable. That said with the start of treatment whether it be surgical or chemoradiation he will need a tracheotomy. In addition with his malnutrition and failure to thrive due to the inability to tolerate p.o. he should also have a PEG tube placed. - he will need an awake tracheotomy as direct laryngoscopy for intubation will likely cause the tongue to fall part from his obvious necrosis - discussed the patient with my partner at [facility], Dr. Guy, head neck surgery. He recommended transferring the patient to [facility] for awake trach and PEG placement. (2) Adult failure to thrive: Patient with decreased strength and appetite over the last few months due to alcohol. 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 No definite hydrocephalus. - PT/OT - Alcohol cessation (3) Anemia: Hgb generally low-normal at 13.5. Down from 12.5 on admission to 9.9 today. Suspect poor bone marrow response. Will get anemia labs in the AM. - Monitor (4) Alcohol use: Ongoing, patient drinks 3-5 beers per day which he says is a reduction in intake. Per his son, I - Supplement thiamine and folate - Monitor for withdrawal symptoms - patient reports he has not had alcohol in about 3 days and has never had withdrawal symptoms in the past. - None seen today. (5) DVT prophylaxis: Enoxaparin Pending Studies at Discharge: No Stand-Alone Forms: My [facility] Skilled Items Patient informed of condition?: Yes DNR: No Discharge Level of Care: Other Communicable Disease: No Discharge Prognosis: Stable Lines: None Urinary Catheter: No Medications and DC Order Prescriptions: Continued No Known Home Medications RF: 0 Discharge Orders: Discharge Order (Routine); Ordered 10/07/20 Ordered By: Lalo Asif/Other Patient Handouts: Cancer Overview Admission Data Admit Date/Time: 10/04/20 18:21 Attending Provider: Osito Martinez Admit Provider: Ashutosh Whitley Primary Care Provider: Madhuri Villavicencio Other Providers: Wil Shields ; Sherrie Mckeon How Other Interventions: Discharge Summary Assessment (RN) Last Done: 10/07/20 22:24 Coding Level of Care Code D/C Day Management >30 mins Diagnoses Abnormality of tongue Q38.3 Adult failure to thrive R62.7 Anemia D64.9 Alcohol use Z78.9 DVT prophylaxis Z29.9
--- NOTE | 2020-10-21 14:01 | Coding Query ---
MALNUTRITION To promote full compliance with coding requirements relating to patient care, physician participation is requested in all cases of administrative fellow uncertainty. Please assist us with the question(s) below: Please place an X within the parenthesis (x). If other, please document: "Malnutrition" is documented in this record on the ENT Consultation and at bottom area of Discharge Summary. If possible, please check the box that provides a more specific diagnosis: ( ) Mild malnutrition ( x) Moderate malnutrition ( ) Severe malnutrition ( ) Protein malnutrition (kwashiorkor) ( ) Severe protein calorie malnutrition ( ) Protein calorie malnutrition, unspecified ( ) Other (please specify): Was this diagnosis present on admission? Please place an X within the parenthesis (x). ( ) Present on admission ( ) Not present on admission ( ) Unable to be clinically determined Thank you Catarina Fletcher [facility]
== END 2020-10-07 23:15 | disposition short-term general hospital (02) | DRG 147 ==
LOC: ED 10:34 → 3W 18:21 → SUATTDRO 18:21 → 3W 19:33

== ENCOUNTER 2021-03-11 16:06 | Inpatient (IN) ==
--- NOTE | 2021-03-11 17:09 | Emergency Department Note ---
History of Present Illness General Chief complaint: Feeding/PEG Tube Replacement Stated complaint: FEEDING TUBE PULLED OUT Time Seen by Provider: 03/11/21 16:38 Source: patient Mode of arrival: ambulatory Limitations: no limitations History of Present Illness Provider complaint: PEG tube fell out Onset (ago): day(s) 2 Maximum Pain Intensity: 0 This is a 66-year-old male who presents the emergency department due to concern that his PEG tube fell out. 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 He states he is to be n.p.o. and has been doing tube feeds at home. He states the PEG tube has been working well, no difficulty flushing, no redness or drainage around the site, no increased pain. Patient states PEG tube fell out 2 days ago. Patient's only help is his son who works as well as tries to help take care of his father. Son states no other family is involved in his care or decision-making. Son states father has been resistant to follow-up with additional doctors appointments as they were previously scheduled. Patient states since the PEG tube fell out he has been trying to take sips p.o. on the unaffected side of his mouth/throat. Patient denies fevers or chills, denies vomiting, denies trouble breathing. Pt seen during a time of high acuity and national emergency pandemic while wearing PPE. Home Medications Medication Instructions Recorded Confirmed Type No Known Home Medications 03/11/21 03/11/21 History Allergies Allergy/AdvReac Type Severity Reaction Status Date / Time No Known Allergies Allergy Verified 03/11/21 17:30 Past Med/Surg History Medical History Abnormality of tongue Adult failure to thrive Alcohol intoxication Alcohol use Ambulatory dysfunction Anemia Change in mental status DVT prophylaxis Hypokalemia Hyponatremia Leukocytosis Precordial chest pain Thrombocytosis Surgical History Hx of gastrostomy (~09/2020) Hx of glossectomy Hx of tracheostomy (~09/2020) Social History Smoking Status: Current every day smoker Tobacco Type: Cigarettes Age Started Using Tobacco: 16; packs per day: 1.5; Years Smoked: 49; Cigarettes Per Day: 30; Second Hand Exposure: Yes; Hx Alcohol Use: Yes Alcohol type: beer, wine and hard liquor Alcohol type Comment: since trach and peg tube, takes 4 beers per day via peg Hx Substance Use: No Preferred Language: Ukrainian Communication Ability: Effective Visual Impairment: No Limitations Hearing Ability: Normal Art Director Required: No Beliefs That Will Affect Care: None marital status: Current Living Situation: Family Current Living Situation Comment: son Shine lives nearby, is supportive and helpful current occupational status: retired current occupation: retired from construction work How many Children do You have: 1 Feels Safe at Home: Yes Childhood Exposure to Second-Hand Smoke: Yes Diet Comment: bolus tube feedings via PEG caffeine: No during the past year weight has: decreased > 10 lbs Dental Care, Regularly: No Physical Activity Frequency: Does not Exercise Seatbelt Use: always Sunscreen Use: No Assistive Devices: None Review of Systems See HPI for pertinent positives & negatives. and A total of 10 systems reviewed and were otherwise negative Physical Exam Vital Signs Vital Signs - 24 hr 03/11/21 16:12 03/11/21 16:30 03/11/21 16:36 Temperature 36.1 C L Temperature Source Oral Pulse Rate 99 H 94 H 94 H Pulse Rate from SpO2 Sensor 94 H 94 H Respiratory Rate 16 22 20 Respiratory Effort / Characteristics Respiratory Depth Respiratory Pattern Blood Pressure 83/71 L 106/78 Blood Pressure [Left Arm] Blood Pressure Mean 75 87 Blood Pressure Mean [Left Arm] Blood Pressure Position [Left Arm] Pulse Oximetry 99 95 94 Oxygen Delivery Method Room Air Sepsis Recent Fever Within 48 Hours No Sepsis New/Unexplained Change in Mental Status N/A Sepsis Action Taken by Nursing No Action Required 03/11/21 16:39 03/11/21 17:00 03/11/21 17:01 Temperature Temperature Source Pulse Rate 90 89 Pulse Rate from SpO2 Sensor Respiratory Rate 21 21 21 Respiratory Effort / Characteristics Non-Labored Respiratory Depth Normal Respiratory Pattern Regular Blood Pressure 108/73 Blood Pressure [Left Arm] 106/78 Blood Pressure Mean 84 Blood Pressure Mean [Left Arm] 87 Blood Pressure Position [Left Arm] Sitting Pulse Oximetry 95 Oxygen Delivery Method Room Air Sepsis Recent Fever Within 48 Hours Sepsis New/Unexplained Change in Mental Status Sepsis Action Taken by Nursing 03/11/21 17:10 03/11/21 17:20 03/11/21 17:30 Temperature Temperature Source Pulse Rate 90 87 84 Pulse Rate from SpO2 Sensor Respiratory Rate 21 21 20 Respiratory Effort / Characteristics Respiratory Depth Respiratory Pattern Blood Pressure 90/67 L Blood Pressure [Left Arm] Blood Pressure Mean 74 Blood Pressure Mean [Left Arm] Blood Pressure Position [Left Arm] Pulse Oximetry Oxygen Delivery Method Sepsis Recent Fever Within 48 Hours Sepsis New/Unexplained Change in Mental Status Sepsis Action Taken by Nursing 03/11/21 17:31 03/11/21 17:40 03/11/21 17:50 Temperature Temperature Source Pulse Rate 81 81 77 Pulse Rate from SpO2 Sensor Respiratory Rate 16 16 21 Respiratory Effort / Characteristics Respiratory Depth Respiratory Pattern Blood Pressure Blood Pressure [Left Arm] Blood Pressure Mean Blood Pressure Mean [Left Arm] Blood Pressure Position [Left Arm] Pulse Oximetry Oxygen Delivery Method Sepsis Recent Fever Within 48 Hours Sepsis New/Unexplained Change in Mental Status Sepsis Action Taken by Nursing 03/11/21 18:00 03/11/21 18:01 03/11/21 18:10 Temperature Temperature Source Pulse Rate 76 74 76 Pulse Rate from SpO2 Sensor Respiratory Rate 17 19 18 Respiratory Effort / Characteristics Respiratory Depth Respiratory Pattern Blood Pressure 118/78 Blood Pressure [Left Arm] Blood Pressure Mean 91 Blood Pressure Mean [Left Arm] Blood Pressure Position [Left Arm] Pulse Oximetry Oxygen Delivery Method Sepsis Recent Fever Within 48 Hours Sepsis New/Unexplained Change in Mental Status Sepsis Action Taken by Nursing 03/11/21 18:20 03/11/21 18:30 03/11/21 18:31 Temperature Temperature Source Pulse Rate 73 71 69 Pulse Rate from SpO2 Sensor Respiratory Rate 18 Respiratory Effort / Characteristics Respiratory Depth Respiratory Pattern Blood Pressure 111/76 Blood Pressure [Left Arm] Blood Pressure Mean 87 Blood Pressure Mean [Left Arm] Blood Pressure Position [Left Arm] Pulse Oximetry Oxygen Delivery Method Sepsis Recent Fever Within 48 Hours Sepsis New/Unexplained Change in Mental Status Sepsis Action Taken by Nursing 03/11/21 18:40 03/11/21 18:50 03/11/21 19:00 Temperature Temperature Source Pulse Rate 75 69 76 Pulse Rate from SpO2 Sensor Respiratory Rate Respiratory Effort / Characteristics Respiratory Depth Respiratory Pattern Blood Pressure 104/73 Blood Pressure [Left Arm] Blood Pressure Mean 83 Blood Pressure Mean [Left Arm] Blood Pressure Position [Left Arm] Pulse Oximetry Oxygen Delivery Method Sepsis Recent Fever Within 48 Hours Sepsis New/Unexplained Change in Mental Status Sepsis Action Taken by Nursing 03/11/21 19:10 03/11/21 19:21 03/11/21 19:30 Temperature Temperature Source Pulse Rate 69 72 78 Pulse Rate from SpO2 Sensor Respiratory Rate Respiratory Effort / Characteristics Respiratory Depth Respiratory Pattern Blood Pressure 104/73 116/76 Blood Pressure [Left Arm] Blood Pressure Mean 83 89 Blood Pressure Mean [Left Arm] Blood Pressure Position [Left Arm] Pulse Oximetry 99 Oxygen Delivery Method Sepsis Recent Fever Within 48 Hours Sepsis New/Unexplained Change in Mental Status Sepsis Action Taken by Nursing 03/11/21 19:31 03/11/21 19:40 03/11/21 19:50 Temperature Temperature Source Pulse Rate 69 95 H 90 Pulse Rate from SpO2 Sensor Respiratory Rate Respiratory Effort / Characteristics Respiratory Depth Respiratory Pattern Blood Pressure Blood Pressure [Left Arm] Blood Pressure Mean Blood Pressure Mean [Left Arm] Blood Pressure Position [Left Arm] Pulse Oximetry 100 99 98 Oxygen Delivery Method Sepsis Recent Fever Within 48 Hours Sepsis New/Unexplained Change in Mental Status Sepsis Action Taken by Nursing 03/11/21 20:00 03/11/21 20:01 03/11/21 20:10 Temperature Temperature Source Pulse Rate 78 91 H 73 Pulse Rate from SpO2 Sensor Respiratory Rate Respiratory Effort / Characteristics Respiratory Depth Respiratory Pattern Blood Pressure 106/72 Blood Pressure [Left Arm] Blood Pressure Mean 83 Blood Pressure Mean [Left Arm] Blood Pressure Position [Left Arm] Pulse Oximetry 97 97 98 Oxygen Delivery Method Sepsis Recent Fever Within 48 Hours Sepsis New/Unexplained Change in Mental Status Sepsis Action Taken by Nursing 03/11/21 20:20 03/11/21 20:30 03/11/21 20:31 Temperature Temperature Source Pulse Rate 74 91 H 79 Pulse Rate from SpO2 Sensor Respiratory Rate Respiratory Effort / Characteristics Respiratory Depth Respiratory Pattern Blood Pressure 108/64 Blood Pressure [Left Arm] Blood Pressure Mean 78 Blood Pressure Mean [Left Arm] Blood Pressure Position [Left Arm] Pulse Oximetry 97 97 97 Oxygen Delivery Method Sepsis Recent Fever Within 48 Hours Sepsis New/Unexplained Change in Mental Status Sepsis Action Taken by Nursing 03/11/21 20:40 03/11/21 20:50 03/11/21 21:00 Temperature Temperature Source Pulse Rate 82 77 Pulse Rate from SpO2 Sensor Respiratory Rate Respiratory Effort / Characteristics Respiratory Depth Respiratory Pattern Blood Pressure Blood Pressure [Left Arm] Blood Pressure Mean Blood Pressure Mean [Left Arm] Blood Pressure Position [Left Arm] Pulse Oximetry 98 98 98 Oxygen Delivery Method Sepsis Recent Fever Within 48 Hours Sepsis New/Unexplained Change in Mental Status Sepsis Action Taken by Nursing 03/11/21 21:01 03/11/21 21:03 Temperature Temperature Source Pulse Rate 69 72 Pulse Rate from SpO2 Sensor Respiratory Rate Respiratory Effort / Characteristics Respiratory Depth Respiratory Pattern Blood Pressure 121/77 Blood Pressure [Left Arm] Blood Pressure Mean 91 Blood Pressure Mean [Left Arm] Blood Pressure Position [Left Arm] Pulse Oximetry 99 98 Oxygen Delivery Method Sepsis Recent Fever Within 48 Hours Sepsis New/Unexplained Change in Mental Status Sepsis Action Taken by Nursing GENERAL: alert, ill appearing, cachectic, no distress, non-toxic EYE EXAM: normal conjunctiva, PERRL and EOM's grossly intact OROPHARYNX: no exudate, no erythema, lips, buccal mucosa, and tongue normal and mucous membranes are moist NECK: supple, no adenopathy, non-tender, tracheostomy noted with tube in place, scant discharge from around the stoma and onto the trach collar which appears to not have been cleaned or changed for an extended period of time. No bleeding. LUNGS: Clear but decreased to auscultation. Normal chest wall mechanics, no w/r/r HEART: no murmurs, S1 normal and S2 normal ABDOMEN: abdomen soft, non-tender, normo-active bowel sounds, no masses, no rebound or guarding. Left upper quadrant with scabbing and scant discharge noted. This area was cleaned with sterile water and sterile gauze and revealed a small subcentimeter stoma that appears to have been the site of the prior PEG tube. Scant bleeding with cleaning the affected area, no other drainage or dis charge, no surrounding erythema. BACK: Back is symmetrical on inspection and there is no deformity, no midline tenderness, no CVA tenderness. SKIN: no rashes and no bruising UPPER EXTREMITIES: upper extremities are grossly normal. FROM, nml pulses b/l. Mild clubbing noted. LOWER EXTREMITIES: No pitting edema. FROM, nml pulses b/l. NEURO EXAM: Normal sensorium, cranial nerves II-XII grossly intact, normal speech, no gross weakness of arms, no gross weakness of legs. Gross sensation intact. Course Course 1701: Discussed with Dr. Oscar. He states to transfer the patient that he doesn't perform PEG tube placement. 1734: Discussed with [facility], Dr. Raman. Additional information was eventually obtained from case management through the [employer] system and showed that the initial attempt at PEG tube placement by general surgery was unsuccessful. His PEG was eventually placed with IR intervention. Patient had extensive resection and subsequent reconstructive surgery for his malignancy. 1800: Discussed with Dr. Raman. 1905: Updated Dr. Raman. I did attempt to place a 10 [place] Garces to help keep the track patent, this was unsuccessful as they met significant resistance. No bleeding noted following this attempt. 1939: Discussed with Dr. Mcneill. 2009: Discussed with Dr. Ferrer. Administered Medications Sodium Chloride (Nss 1000ml) 1,000 mls @ 200 mls/hr IV .Q5H NIKO Stop: 04/10/21 19:14 Last Admin: 03/11/21 19:20 Dose: 200 mls/hr Documented by: [id number] Discontinued Medications Sodium Chloride (Nss 1000ml) 1,000 mls @ 999 mls/hr IV .Q1H1M ONE Stop: 03/11/21 18:37 Last Infusion: 03/11/21 19:00 Dose: 0 mls/hr Documented by: [id number] Admin: 03/11/21 17:30 Dose: 999 mls/hr Documented by: [id number] Medical Decision Making Differential Diagnosis PEG tube dislodgment, PEG tube malfunction, perforation, cellulitis, abscess, false track, as well as others were considered Medical Records Attestation: I reviewed the patient's medical records. Home Medications Current Medication List: was personally reviewed by me Laboratory Data Attestation: I reviewed the patient's lab results. Result diagrams: 03/11/21 17:31 03/11/21 17:31 Lab Results 03/11/21 03/11/21 03/11/21 Range/Units 17:31 17:31 17:31 WBC 8.17 (4.8-10.8) K/uL RBC 4.13 L (4.7-6.1) M/uL Hgb 13.3 L (14.0-18.0) g/dL Hct 37.8 L (42-52) % MCV 91.5 (80-100) fL MCH 32.2 (25-34) pg MCHC 35.2 (32-36) g/dL RDW Std Deviation 49.2 H (36.4-46.3) fL RDW Coeff of Martha 14.5 (11.5-14.5) % Plt Count 917 H (130-400) K/uL MPV 9.3 (7.4-10.4) fL Immature Gran % (Auto) 0.1 % Neut % (Auto) 53.4 % Lymph % (Auto) 29.7 % Cherry % (Auto) 12.1 % Eos % (Auto) 3.7 % Baso % (Auto) 1.0 % Neut # (Auto) 4.36 (1.4-6.5) K/uL Lymph # (Auto) 2.43 (1.2-3.4) K/uL Cherry # (Auto) 0.99 H (0.11-0.59) K/uL Eos # (Auto) 0.30 (0-0.5) K/uL Baso # (Auto) 0.08 (0-0.2) K/uL Immature Gran # (Auto) 0.01 (0.00-0.02) K/uL PT 10.6 (9.0-12.0) Seconds INR 1.0 (0.9-1.1) Sodium 135 L (136-145) mmol/L Potassium 3.4 L (3.5-5.1) mmol/L Chloride 95 L (98-107) mmol/L Carbon Dioxide 30 (21-32) mmol/L Anion Gap 11.0 (3-11) BUN 42 H (7-18) mg/dl Creatinine 2.07 H (0.6-1.4) mg/dl Est Cr Clr Drug Dosing Not Reportable Est GFR ( Amer) 37.8 Est GFR (Non-Af Amer) 32.6 BUN/Creatinine Ratio 20.4 H (10-20) Glucose 99 (70-99) mg/dl Calcium 10.5 H (8.5-10.1) mg/dl Magnesium 2.3 (1.8-2.4) mg/dl Total Bilirubin 0.5 (0.2-1) mg/dl AST 14 L (15-37) U/L ALT 20 (12-78) U/L Alkaline Phosphatase 80 (45-117) U/L Total Protein 8.7 H (6.4-8.2) gm/dl Albumin 3.7 (3.4-5.0) gm/dl Globulin 5.0 H (2.5-4.0) gm/dl Albumin/Globulin Ratio 0.7 L (0.9-2) Lipase 105 (73-393) U/L COVID-19 Eval Order SARS-CoV-2 (PCR) (Negative) Influenza Type A (PCR) (Neg) Influenza Type B (PCR) (Neg) RSV (RT-PCR) (Neg) 03/11/21 03/11/21 Range/Units 20:11 20:11 WBC (4.8-10.8) K/uL RBC (4.7-6.1) M/uL Hgb (14.0-18.0) g/dL Hct (42-52) % MCV (80-100) fL MCH (25-34) pg MCHC (32-36) g/dL RDW Std Deviation (36.4-46.3) fL RDW Coeff of Martha (11.5-14.5) % Plt Count (130-400) K/uL MPV (7.4-10.4) fL Immature Gran % (Auto) % Neut % (Auto) % Lymph % (Auto) % Cherry % (Auto) % Eos % (Auto) % Baso % (Auto) % Neut # (Auto) (1.4-6.5) K/uL Lymph # (Auto) (1.2-3.4) K/uL Cherry # (Auto) (0.11-0.59) K/uL Eos # (Auto) (0-0.5) K/uL Baso # (Auto) (0-0.2) K/uL Immature Gran # (Auto) (0.00-0.02) K/uL PT (9.0-12.0) Seconds INR (0.9-1.1) Sodium (136-145) mmol/L Potassium (3.5-5.1) mmol/L Chloride (98-107) mmol/L Carbon Dioxide (21-32) mmol/L Anion Gap (3-11) BUN (7-18) mg/dl Creatinine (0.6-1.4) mg/dl Est Cr Clr Drug Dosing Est GFR ( Amer) Est GFR (Non-Af Amer) BUN/Creatinine Ratio (10-20) Glucose (70-99) mg/dl Calcium (8.5-10.1) mg/dl Magnesium (1.8-2.4) mg/dl Total Bilirubin (0.2-1) mg/dl AST (15-37) U/L ALT (12-78) U/L Alkaline Phosphatase (45-117) U/L Total Protein (6.4-8.2) gm/dl Albumin (3.4-5.0) gm/dl Globulin (2.5-4.0) gm/dl Albumin/Globulin Ratio (0.9-2) Lipase (73-393) U/L COVID-19 Eval Order [facility]Rsv at [facility] SARS-CoV-2 (PCR) NEGATIVE (Negative) Influenza Type A (PCR) Negative (Neg) Influenza Type B (PCR) Negative (Neg) RSV (RT-PCR) Negative (Neg) MDM Narrative This is an ill-appearing 66-year-old male presents following PEG tube displacement 48 hours ago. Patient had not sought any prior medical attention since this became dislodged. I was unable to replace any small catheter through that hole in order to keep the fistula open. Case was discussed with [facility] transfer service. General surgery here felt patient should be transferred. After additional discussion with GI, they felt that the oncoming GI doc tomorrow may consider it, although they could not speak for them and guarantee it. Patient was hemodynamically stable although appeared dehydrated. Labs are drawn and sent and patient started on IV fluids and poor p.o. intake over the last 2 days after the loss of his feeding tubes. Patient found to have new RONEL which I suspect is prerenal. Patient was afebrile, had no other new or evolving symptoms while here, I discussed options for disposition with he and the son at bedside. [facility] had initially felt they may be able to replace the PEG tube as an outpatient tomorrow although we could not successfully secure transportation for the patient. Given the fact that the patient has new RONEL and would need to be rehydrated, and should be monitored for alcohol withdrawal given his significant history of alcohol abuse, we felt the patient should more safely be monitored as an inpatient regardless. [facility] was happy to accept the patient in transfer although did not have any available beds. In light of this case discussed with our hospitalist here. They will follow-up with GI however the plan at this time is for patient to be transferred tomorrow to [facility] once a bed becomes available. An order was placed for continuous cardiac monitoring. The monitor shows a rate of _76_ with _normal sinus rhythm. Impression & Plan PEG tube malfunction, Failure to thrive, Tracheostomy in place, RONEL (acute kidney injury), Alcohol abuse, Acute dehydration Discharge Plan Visit Data Chief Complaint: Feeding/PEG Tube Replacement Stated Complaint: FEEDING TUBE PULLED OUT ED Provider: Magalie Salazar Discharge Problem: PEG tube malfunction, Failure to thrive, Tracheostomy in place, RONEL (acute kidney injury), Alcohol abuse, Acute dehydration Forms Stand Alone Forms: [facility] [employer] [place] Prescriptions Prescriptions: No Action No Known Home Medications RF: 0 Referrals Referrals: Skyla Gandara CRNP [Primary Care Provider] - Discharge Problem: Failure to thrive Qualifiers: Failure to thrive age range: in adult Qualified Code(s): R62.7 - Adult failure to thrive
[2021-03-11] MEDS ORDERED: SODIUM CHLORIDE 0.9% 1000ML 1,000 ML IV ONE (17:37)
[2021-03-11 18:09] LABS: Basophils # (auto) 0.08 K/uL (0-0.2); Eosinophils % (auto) 3.7 %; Hematocrit (blood only) 37.8 % (42-52); Hemoglobin 13.3 g/dL (14.0-18.0); Immature Granulocytes # (auto) 0.01 K/uL (0.00-0.02); Immature Granulocytes % (auto) 0.1 %; Lymphocytes # (auto) 2.43 K/uL (1.2-3.4); Lymphocytes % (auto) 29.7 %; Mean Corpuscular Hemoglobin 32.2 pg (25-34); Mean Corpuscular Hgb Conc 35.2 g/dL (32-36); Mean Corpuscular Volume 91.5 fL (80-100); Mean Platelet Volume 9.3 fL (7.4-10.4); Monocytes # (auto) 0.99 K/uL (0.11-0.59); Monocytes % (auto) 12.1 %; Neutrophils # (auto) 4.36 K/uL (1.4-6.5); Neutrophils % (auto) 53.4 %; Platelet Count 917 K/uL (130-400); RDW Coefficient of Variation 14.5 % (11.5-14.5); RDW Standard Deviation 49.2 fL (36.4-46.3); Red Blood Count 4.13 M/uL (4.7-6.1); White Blood Count 8.17 K/uL (4.8-10.8)
[2021-03-11 18:15] LABS: Albumin Level 3.7 gm/dl (3.4-5.0); BUN Creatinine Ratio 20.4 (10-20); Blood Urea Nitrogen 42 mg/dl (7-18); Calcium 10.5 mg/dl (8.5-10.1); Carbon Dioxide 30 mmol/L (21-32); Chloride 95 mmol/L (98-107); Est GFR (African American) 37.8; Est GFR (Non-African American) 32.6; Glucose 99 mg/dl (70-99); Lipase 105 U/L (73-393); Magnesium 2.3 mg/dl (1.8-2.4); Potassium 3.4 mmol/L (3.5-5.1); Sodium 135 mmol/L (136-145)
[2021-03-11 18:18] LABS: Alanine Aminotransferase 20 U/L (12-78); Albumin Globulin Ratio 0.7 (0.9-2); Alkaline Phosphatase 80 U/L (45-117); Aspartate Aminotransferase 14 U/L (15-37); Bilirubin,Total 0.5 mg/dl (0.2-1); Prothrombin Time 10.6 Seconds (9.0-12.0); Total Protein 8.7 gm/dl (6.4-8.2)
[2021-03-11] MEDS: SODIUM CHLORIDE 0.9% 1000ML 1,000 ML IV SCH (19:20)
[2021-03-11 21:37] LABS: Influenza A virus by PCR Negative (Neg); Influenza B virus by PCR Negative (Neg); RSV by PCR Negative (Neg); SARS CoV2 RNA(COVID-19) InHosp NEGATIVE (Negative)
--- NOTE | 2021-03-11 22:45 | History & Physical Report ---
Date of Service March 11, 2021 Assessment & Plan Admission and Anticipated Discharge Date Admission Date: 66 yo male with SCC of the tongue who has a trach and PEG presented after his PEG tube fell out while he was feeding himself 2 days prior. PEG tube fell out Unable to replace PEG tube in ER, originally placed 4 months prior in [place] No current concern for infection with WBC 8.17, afebrile, hemodynamically stable and site does not appear grossly infected - GI consulted to attempt PEG tube placement here, if unsuccessful consider transfer to tertiary care - continue fluid - NPO - AM CBC ETOH use, no current concern for withdrawal - AWSS scoring ordered - monitor for now - IV Thiamine and Folate replacement RONEL w/ cr. 2.09; BUN/Cr. 20.4; appears prerenal - IVF 125/h X3 bags - continue to trend BMP Code: full Diet: NPO DVT: SCD's History of Present Illness Chief Complaint: peg tube fell out Primary Care Provider: REGINA Foster Difficult to communicate with patient due to trach tube in place with some slurring of speech. Turner Keller is here after his PEG tube fell out while he was feeding himself on Monday. 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 The PEG tube was placed along with a trach by [facility] in [place] in October. He said he didn't come to get the tube replaced initially because his phone was broken. He has lost 33lbs over the last 3-4 months. talking to son it sounds like they were trying to get him to drink 5 boost shakes a day and he was only able to drink 2-3. He also had started to eat by mouth despite recommendations against that. He reportedly has been drinking approximately 4 alcoholic drinks through his PEG tube prior to it falling out. Son will check on him through the week along with nurses that come 2-3 times a week as well as a friend who is a nurse who has been checking on him. He has been refusing to go to see his oncologist Dr. Flores and had canceled appointments. ED course: attempted to replace PEG tube unsuccessfully ER discussed case with surgery and GI GI suggested that PEG tube could possibly be placed in AM with Dr. Noriega Piotr Riojas # [phone] Allergies Allergy/AdvReac Type Severity Reaction Status Date / Time No Known Allergies Allergy Verified 03/11/21 17:30 Home Medications Medication Instructions Recorded Confirmed Type No Known Home Medications 03/11/21 03/11/21 History Past Med/Surg History Medical History Abnormality of tongue Adult failure to thrive Alcohol intoxication Alcohol use Ambulatory dysfunction Anemia Change in mental status DVT prophylaxis Hypokalemia Hyponatremia Leukocytosis Precordial chest pain Thrombocytosis Surgical History Hx of gastrostomy (~09/2020) Hx of glossectomy Hx of tracheostomy (~09/2020) Social History Smoking Status: Current every day smoker Tobacco Type: Cigarettes Age Started Using Tobacco: 16; packs per day: 1.5; Years Smoked: 50; Cigarettes Per Day: 1/2 pack per day; Second Hand Exposure: No; Do You Dip or Chew Tobacco: No; Hx Alcohol Use: Yes Alcohol type: beer Alcohol type Comment: since trach and peg tube, takes 4 beers per day via peg Hx Substance Use: Yes Last Used Substance: Days (ago) Preferred Language: Emirati Communication Ability: Impaired Visual Impairment: No Limitations Hearing Ability: Normal Procedures Analyst Required: No Beliefs That Will Affect Care: None marital status: Current Living Situation: Alone Current Living Situation Comment: son Shine lives nearby, is supportive and helpful current occupational status: retired current occupation: retired from construction work How many Children do You have: 1 Other Information That Helps Us Care for You: No Feels Safe at Home: Yes Safety Concerns: Feels Safe At This Time Childhood Exposure to Second-Hand Smoke: Yes Diet Comment: bolus tube feedings via PEG caffeine: No during the past year weight has: decreased > 10 lbs Dental Care, Regularly: No Physical Activity Frequency: Does not Exercise Seatbelt Use: always Sunscreen Use: No Assistive Devices: Cane Review of Systems Review of Systems: Constitutional: denies fevers, chills, nausea admits weight loss Head: denies trauma Neuro: denies syncope, presyncope, focal weakness Cardiac: denies chest pain, leg edema admits occasional palpitations Pulm.: denies shortness of breath admits cough and sputum production with small volume white absent of smell GI: denies constipation, diarrhea, abdominal pain : denies pain, urgency, frequency Physical Exam Constitutional: + cachectic and + frail appearing; + not well nourished Eyes: PERRL, conjunctivae normal, anicteric sclerae ENMT: - oropharynx with white flem. present - moist mucus membranes Neck: - trach site intact with no clear mucus or erythema or drainage present Respiratory: normal respiratory effort, lungs clear to auscultation Cardiovascular: RRR, no murmur, no edema Gastrointestinal (Abdomen): Inspection/Auscultation: + scaphoid - soft nTTP - PEG site with crusting, no significant erythema warmth or drainage Skin: no rashes, warm and dry Neurologic: no focal motor deficits Psychiatric: Orientation: alert Results & Data Results & Data ([facility]) Vital Signs (Past 12 Hours) Vital Signs Temp Pulse Resp BP BP Pulse Ox 03/11/21 21:03 72 121/77 98 03/11/21 21:01 69 99 03/11/21 21:00 77 98 03/11/21 20:50 98 03/11/21 20:40 82 98 03/11/21 20:31 79 97 03/11/21 20:30 91 H 108/64 97 03/11/21 20:20 74 97 03/11/21 20:10 73 98 03/11/21 20:01 91 H 97 03/11/21 20:00 78 106/72 97 03/11/21 19:50 90 98 03/11/21 19:40 95 H 99 03/11/21 19:31 69 100 03/11/21 19:30 78 116/76 99 03/11/21 19:21 72 104/73 03/11/21 19:10 69 03/11/21 19:00 76 104/73 03/11/21 18:50 69 03/11/21 18:40 75 03/11/21 18:31 69 03/11/21 18:30 71 111/76 03/11/21 18:20 73 18 03/11/21 18:10 76 18 03/11/21 18:01 74 19 03/11/21 18:00 76 17 118/78 03/11/21 17:50 77 21 04/22/21 17:40 81 16 03/11/21 17:31 81 16 03/11/21 17:30 84 20 90/67 L 03/11/21 17:20 87 21 03/11/21 17:10 90 21 03/11/21 17:01 89 21 03/11/21 17:00 90 21 108/73 03/11/21 16:39 21 106/78 95 03/11/21 16:36 94 H 20 94 03/11/21 16:30 94 H 22 106/78 95 03/11/21 16:12 36.1 C L 99 H 16 83/71 L 99 CBC Results Results Complete Blood Count Results: RBC 4.13 M/uL (4.7-6.1) L 03/11/21 WBC 8.17 K/uL (4.8-10.8) 03/11/21 Hgb 13.3 g/dL (14.0-18.0) L 03/11/21 Hct 37.8 % (42-52) L 03/11/21 Plt Count 917 K/uL (130-400) H 03/11/21 Chemistry (BMP) Results BMP Results: Sodium 135 mmol/L (136-145) L 03/11/21 Potassium 3.4 mmol/L (3.5-5.1) L 03/11/21 Chloride 95 mmol/L (98-107) L 03/11/21 BUN 42 mg/dl (7-18) H 03/11/21 Creatinine 2.07 mg/dl (0.6-1.4) H 03/11/21 Glucose 99 mg/dl (70-99) 03/11/21 Code Status & VTE Plan VTE Prophylaxis Plan VTE Prophylaxis will be ordered: Yes Supervising Physician Co-Signing Physician Notes Patient seen and examined, chart reviewed, case discussed with Dr. Angulo and I agree with his assessment and plan as documented above. Briefly, patient is a 66yo male with malignant neoplasm of tongue base s/p excision. Patient is s/p tracheostomy and PEG tube placement. He is strict NPO. PEG tube fell out 2 days ago - unable to be replaced in ER today On exam he is afebrile, HD stable, NAD +S1/S2, regular LUngs CTA Abd - +BS, soft, NT/ND, PEG site clear with no infection/inflammation or drainage Ext - No edema Assessment/Plan: -GI may attempt PEG tube replacement tomorrow VS [place] be [place] [facility] [place] -Remainder of plan as above Resident Activity Tracking Resident Involvement: Resident Care Provided Care Provided: Adult Hospital Medicine
[2021-03-12] MEDS ORDERED: PATIENT'S HEIGHT AND/OR WEIGHT NEEDED SCH (00:15)
[2021-03-12] MEDS: SODIUM CHLORIDE 0.9% 1000ML 1,000 ML IV SCH ×2 (01:16→06:38)
--- NOTE | 2021-03-12 03:53 | Billing Data ---
Date of Service March 11, 2021 Coding Level of Care Code 43309 OBS Care - Level 3
[2021-03-12] MEDS ORDERED: ENOXAPARIN INJ 30 MG/0.3 ML SYR SQ SCH (08:00)
[2021-03-12 08:05] LABS: Basophils % (auto) 1.5 %; Eosinophils # (auto) 0.46 K/uL (0-0.5); Eosinophils % (auto) 6.9 %; Hematocrit (blood only) 29.8 % (42-52); Hemoglobin 10.3 g/dL (14.0-18.0); Lymphocytes # (auto) 2.48 K/uL (1.2-3.4); Lymphocytes % (auto) 37.3 %; Mean Corpuscular Hemoglobin 31.9 pg (25-34); Mean Corpuscular Hgb Conc 34.6 g/dL (32-36); Mean Corpuscular Volume 92.3 fL (80-100); Mean Platelet Volume 8.8 fL (7.4-10.4); Monocytes # (auto) 0.75 K/uL (0.11-0.59); Monocytes % (auto) 11.3 %; Neutrophils # (auto) 2.85 K/uL (1.4-6.5); Platelet Count 618 K/uL (130-400); RDW Coefficient of Variation 14.6 % (11.5-14.5); RDW Standard Deviation 49.4 fL (36.4-46.3); Red Blood Count 3.23 M/uL (4.7-6.1); White Blood Count 6.64 K/uL (4.8-10.8)
[2021-03-12 08:35] LABS: BUN Creatinine Ratio 26.8 (10-20); Calcium 8.7 mg/dl (8.5-10.1); Est GFR (African American) 75.4; Potassium 2.8 mmol/L (3.5-5.1)
--- NOTE | 2021-03-12 08:36 | Hospitalist Progress Note ---
Date of Service March 12, 2021 Assessment & Plan (1) PEG tube malfunction: Reportedly the pts peg tube fell out at home, replaced by Dr. Gonzales continues for meds and flushes but will try feeding on 03/13 needs it for history of SCCA toungeu (2) Squamous cell carcinoma of tongue: SCCA of tongue with mets to oral cavity, initially diagonsed in 09/2020 completed radiation therapy unclear exactly what his oncological follow-up is (3) RONEL (acute kidney injury): resolved with ivf (4) Alcohol use: (5) Underweight: Underweight/BMI 16.0/Mild-moderate protein calorie malnutrition (6) Goals of care, counseling/discussion: I attempted to have goals of care discussion with the patient given his family's suggestion that he wishes to quit and only uses his PEG tube for beer and sp rafael patient wrote down very clearly on a tablet that he wants to live that although he would love to get rid of his tracheostomy and his PEG tube he understands there requirement at this point time Admission and Anticipated Discharge Date Admission Date: March 11, 2021 Subjective Patient is with difficult communication due to his recent removal of his tongue. Patient is here for his PEG tube falling out PEG tube is in place by endoscopy today. Family brought some concerns that the patient may have wish to enter hospice or palliative care mode however I spoke with the patient to the use of a writing tablet and the patient says that he wants to live that he would love to get rid of his tracheostomy and PEG tube however he understands that they should only be removed if able to. There is some confusion with the patient and after speaking to the son also with the son about who is eventual oncological follow- up is it may be through [facility] oncology. Review of Systems Review of Systems: Moderate distress and fatigue Weight loss and underweight no headache, blurry or double vision Patient guttural tones to the removal of his tongue no chest pain, pressure or palpitations He has some baseline COPD as he is with some mild shortness of breath no abdominal pain PEG tube site was healed prior to reinsertion insertion site now is without much discomfort no dysuria, hematuria or frequency no focal joint pain or swelling no back pain, CVA tenderness or radicular pain He does have juanito on his left anterior thigh which were removed today they look like they have been well longer than they need to be no focal signs of weakness or numbness or altered sensation Did write down on the tablet that he wants to live Physical Exam Physical Exam: The patient underweight and chronically ill Vital signs as documented. Head exam is normocephalic atraumatic no scleral icterus Neck is with tracheostomy present in the anterior neck Lungs are coarse to auscultation bilaterally Cardiac exam, Rhythm is regular.. No murmurs, rubs or gallops. Abdominal exam reveals normal bowel sounds, PEG site is very well-healed upon examination he however did have a PEG placed later in the afternoon and it is clean dry and intact with very minimal bleeding Extremities are nonedematous and both pedal pulses are present Neurologic exam is alert and oriented, patient seems to understand the situation as he writes his answers on a tablet Skin is with healed linear incision to the left anterior thigh Psychologically is without concerns for anxiety or depression Results & Data Results & Data ([facility]) Vital Signs (Past 12 Hours) Vital Signs Temp Pulse Pulse Resp BP BP Pulse Ox 03/12/21 07:50 97.3 F L 68 16 104/61 91 03/12/21 04:56 97.3 F L 73 18 106/59 L 93 03/11/21 23:51 97.9 F 73 18 113/74 95 03/11/21 23:10 71 97 03/11/21 23:01 70 97 03/11/21 23:00 70 115/71 97 03/11/21 22:50 67 98 03/11/21 22:40 72 98 03/11/21 22:31 70 98 03/11/21 22:30 68 13 115/73 99 03/11/21 22:20 72 100 03/11/21 22:10 74 98 03/11/21 22:01 70 98 03/11/21 22:00 86 114/71 99 03/11/21 21:50 68 19 98 03/11/21 21:40 71 16 99 03/11/21 21:31 69 18 99 03/11/21 21:30 66 14 117/72 99 03/11/21 21:20 67 17 98 03/11/21 21:10 68 97 03/11/21 21:04 70 99 03/11/21 21:03 72 121/77 98 03/11/21 21:01 69 99 03/11/21 21:00 77 98 0422/21 20:50 98 03/11/21 20:40 82 98 Pulse Ox 03/12/21 07:50 03/12/21 04:56 03/11/21 23:51 95 03/11/21 23:10 03/11/21 23:01 03/11/21 23:00 03/11/21 22:50 03/11/21 22:40 03/11/21 22:31 03/11/21 22:30 03/11/21 22:20 03/11/21 22:10 03/11/21 22:01 03/11/21 22:00 03/11/21 21:50 03/11/21 21:40 03/11/21 21:31 03/11/21 21:30 03/11/21 21:20 03/11/21 21:10 03/11/21 21:04 03/11/21 21:03 03/11/21 21:01 03/11/21 21:00 03/11/21 20:50 03/11/21 20:40 PG Care Time/CCT Total # of Minutes Spent Total Time Spent with Patient: Total time spent is greater than 50% in coordination of care (as documented) at patient's floor/unit and/or counseling patient: Coding Level of Care Code 70290 Subseq Hosp Care Lvl 3 Diagnoses PEG tube malfunction K94.23 Squamous cell carcinoma of tongue C02.9 RONEL (acute kidney injury) N17.9 Alcohol use Z72.89 Underweight R63.6 Goals of care, counseling/discussion Z71.89
[2021-03-12] MEDS: THIAMINE HCL 100 MG in SYRINGE 9 ML IV SCH (08:43)
[2021-03-12] MEDS: FOLIC ACID 1 MG in SYRINGE 9.8 ML IV SCH (08:43)
[2021-03-12] MEDS ORDERED: POTASSIUM CHLORIDE / WTR 10 MEQ/100 ML PLCT IV ONE ×3 (08:45→11:30)
--- NOTE | 2021-03-12 09:59 | Gastrointestinal Consultation ---
Date of Consultation March 12, 2021 Assessment & Plan (1) PEG tube malfunction: Pt is a 66 y/o male w SCC of tongue, s/p surgery, tracheostomy & PEG placement via IR. He is admitted for attempt of endoscopic PEG tube replacement. Tube fell out on Monday while feeding himself and was not able to be replaced in ED. Pls keep pt NPO. Cefazolin IV for pre med prior to PEG placement Supervising Physician Co-Signing Physician Notes I performed a history and physical examination of the patient today, including specifically on physical exam - soft abdomen. I have discussed the patient's management with the advanced practitioner. Please refer to the nurse practitioner's note for the documented findings and plan of care. EGD with PEG tube History of Present Illness Reason for Consultation: PEG replacement Requesting Physician: Dr. Bradley Beck Attending Physician: Dr. Carolina Noriega History of Present Illness Pt is a 66 y/o male w SCC of tongue s/p surgery who presented to ED yesterday after his PEG tube fell out on Monday. He has a tracheostomy in place and PEG was placed by IR in [facility] on 10/12/2020. He's been getting Boost shakes via the PEG but also drinking it PO. Noted on H&P that he's been using PEG for alcoholic drinks as well. PEG was unsuccessfully replaced in ED, pt is thus admitted for endoscopic attempt to replace PEG. Allergies Allergy/AdvReac Type Severity Reaction Status Date / Time No Known Allergies Allergy Verified 03/11/21 17:30 Home Medications Medication Instructions Recorded Confirmed Type No Known Home Medications 03/11/21 03/11/21 History Patient History Medical History Abnormality of tongue Adult failure to thrive Alcohol intoxication Alcohol use Ambulatory dysfunction Anemia Change in mental status DVT prophylaxis Hypokalemia Hyponatremia Leukocytosis Precordial chest pain Thrombocytosis Surgical History Hx of gastrostomy (~09/2020) Hx of glossectomy Hx of tracheostomy (~09/2020) Social History Smoking Status: Current every day smoker Tobacco Type: Cigarettes Age Started Using Tobacco: 16; packs per day: 1.5; Years Smoked: 50; Cigarettes Per Day: 1/2 pack per day; Second Hand Exposure: No; Do You Dip or Chew Tobacco: No; Hx Alcohol Use: Yes Alcohol type: beer Alcohol type Comment: since trach and peg tube, takes 4 beers per day via peg Hx Substance Use: Yes Last Used Substance: Days (ago) Preferred Language: Kiswahili Communication Ability: Impaired Visual Impairment: No Limitations Hearing Ability: Normal President Required: No Beliefs That Will Affect Care: None marital status: Current Living Situation: Alone Current Living Situation Comment: son Sihne lives nearby, is supportive and helpful current occupational status: retired current occupation: retired from construction work How many Children do You have: 1 Other Information That Helps Us Care for You: No Feels Safe at Home: Yes Safety Concerns: Feels Safe At This Time Childhood Exposure to Second-Hand Smoke: Yes Diet Comment: bolus tube feedings via PEG caffeine: No during the past year weight has: decreased > 10 lbs Dental Care, Regularly: No Physical Activity Frequency: Does not Exercise Seatbelt Use: always Sunscreen Use: No Assistive Devices: Cane Review of Systems Review of Systems: All systems reviewed & are unremarkable except as noted in HPI & below Physical Exam Constitutional: + thin, well groomed, cooperative and comfortable Eyes: PERRL, conjunctivae normal, anicteric sclerae ENMT: external ear and nose normal, oropharynx normal Neck: Tracheostomy in place Respiratory: normal respiratory effort, lungs clear to auscultation Cardiovascular: RRR, no murmur, no edema Gastrointestinal (Abdomen): normal bowel sounds, soft, nontender, no hepa tosplenomegaly Skin: no rashes, warm and dry no jaundice Psychiatric: A+Ox3, euthymic affect Lymphatic: no lymphedema Results & Data ([facility]) Vital Signs (Past 12 Hours) Vital Signs Temp Pulse Pulse Resp BP BP Pulse Ox 03/12/21 07:50 36.3 C L 68 16 104/61 91 03/12/21 04:56 36.3 C L 73 18 106/59 L 93 03/11/21 23:51 36.6 C 73 18 113/74 95 03/11/21 23:10 71 97 03/11/21 23:01 70 97 03/11/21 23:00 70 115/71 97 03/11/21 22:50 67 98 03/11/21 22:40 72 98 03/11/21 22:31 70 98 03/11/21 22:30 68 13 115/73 99 03/11/21 22:20 72 100 03/11/21 22:10 74 98 03/11/21 22:01 70 98 03/11/21 22:00 86 114/71 99 Pulse Ox 03/12/21 07:50 03/12/21 04:56 03/11/21 23:51 95 03/11/21 23:10 03/11/21 23:01 03/11/21 23:00 03/11/21 22:50 03/11/21 22:40 03/11/21 22:31 03/11/21 22:30 03/11/21 22:20 03/11/21 22:10 03/11/21 22:01 03/11/21 22:00
--- NOTE | 2021-03-12 11:20 | Anesthesiology Consultation ---
Date of Service March 12, 2021 Assessment & Plan (1) Encounter for pre-operative examination: Chart Review Chart Review: Acceptable Risk for Surgery and Patient NOT seen in Pre Admission Testing Consults Requested none History Surgery Operation Date: 03/12/21 16:30 Proposed Procedures p Esophagogastroduodenoscopy Dr Noriega - Carolina Noriega MD Height/Weight Height: 5 ft 10 in Weight: 50.6 kg Allergies Allergy/AdvReac Type Severity Reaction Status Date / Time No Known Allergies Allergy Verified 03/11/21 17:30 Medications Home Medications Medication Instructions Recorded Confirmed Last Taken No Known Home Medications 03/11/21 03/11/21 Unknown Active Medications Generic Name Dose Route Start Last Admin Trade Name Freq PRN Reason Stop Dose Admin Sodium Chloride 1,000 mls @ 125 mls/hr 03/11/21 19:15 03/12/21 06:38 Nss 1000ml IV 03/12/21 15:05 200 mls/hr .Q8H NIKO Administration Thiamine HCl 100 mg/ Syringe 10 mls @ 2 mls/min 03/12/21 09:00 03/12/21 08:43 IV 04/11/21 08:59 2 mls/min QAM NIKO Administration Folic Acid 1 mg/ Syringe 10 mls @ 5 mls/min 03/12/21 09:00 03/12/21 08:43 IV 04/11/21 08:59 5 mls/min QAM NIKO Administration Past Medical History Medical History Abnormality of tongue Adult failure to thrive Alcohol intoxication Alcohol use Ambulatory dysfunction Anemia Change in mental status DVT prophylaxis Hypokalemia Hyponatremia Leukocytosis Precordial chest pain Thrombocytosis Past Surgical History Surgical History Hx of gastrostomy (~09/2020) Hx of glossectomy Hx of tracheostomy (~09/2020) Social History Smoking Status: Current every day smoker tobacco type: cigarettes Smoking cigarettes per day: 1/2 pack per day Do You Dip or Chew Tobacco: No Hx Alcohol Use: Yes Alcohol type: beer alcohol intake frequency: a few times a week Hx Substance Use: Yes substance use type: marijuana Last Used Substance: Days (ago) Physical Exam Vital Signs Last Vital Signs Temp 36.3 C L 03/12/21 07:50 Pulse 70 03/12/21 08:00 Resp 16 03/12/21 07:50 BP 104/61 03/12/21 07:50 Pulse Ox 91 03/12/21 07:50 Testing Laboratory Results 03/12/21 07:36 03/12/21 07:36 PT 10.6 Seconds (9.0-12.0) 03/11/21 17:31 INR 1.0 (0.9-1.1) 03/11/21 17:31
[2021-03-12] MEDS ORDERED: ceFAZolin 1000MG 1,000 MG/7.5 ML SYR IV ONE (13:40)
[2021-03-12] MEDS ORDERED: LIDOCAINE HCL 2% 2 ML VIAL/AMP(20MG/ML) INFIL ONE (13:42)
[2021-03-12] MEDS ORDERED: PROPOFOL IV EMULSION 10 MG/ML 20 ML VIAL IV ONE (13:42)
--- NOTE | 2021-03-12 14:26 | Anesthesiology Progress Note ---
Date of Service March 12, 2021 Anesthesia Post Procedure Vital Signs Vital Signs: Temp Pulse Pulse Resp BP BP Pulse Ox 03/12/21 12:02 36.6 C 66 16 111/66 94 03/12/21 08:00 70 03/12/21 07:50 36.3 C L 68 16 104/61 91 03/12/21 04:56 36.3 C L 73 18 106/59 L 93 03/11/21 23:51 36.6 C 73 18 113/74 95 03/11/21 23:10 71 97 03/11/21 23:01 70 97 03/11/21 23:00 70 115/71 97 03/11/21 22:50 67 98 03/11/21 22:40 72 98 03/11/21 22:31 70 98 03/11/21 22:30 68 13 115/73 99 03/11/21 22:20 72 100 03/11/21 22:10 74 98 03/11/21 22:01 70 98 03/11/21 22:00 86 114/71 99 03/11/21 21:50 68 19 98 03/11/21 21:40 71 16 99 03/11/21 21:31 69 18 99 03/11/21 21:30 66 14 117/72 99 03/11/21 21:20 67 17 98 03/11/21 21:10 68 97 03/11/21 21:04 70 99 03/11/21 21:03 72 121/77 98 03/11/21 21:01 69 99 03/11/21 21:00 77 98 03/11/21 20:50 98 03/11/21 20:40 82 98 03/11/21 20:31 79 97 03/11/21 20:30 91 H 108/64 97 03/11/21 20:20 74 97 03/11/21 20:10 73 98 03/11/21 20:01 91 H 97 03/11/21 20:00 78 106/72 97 03/11/21 19:50 90 98 03/11/21 19:40 95 H 99 03/11/21 19:31 69 100 03/11/21 19:30 78 116/76 99 03/11/21 19:21 72 104/73 03/11/21 19:10 69 03/11/21 19:00 76 104/73 03/11/21 18:50 69 03/11/21 18:40 75 03/11/21 18:31 69 03/11/21 18:30 71 111/76 03/11/21 18:20 73 18 03/11/21 18:10 76 18 03/11/21 18:01 74 19 03/11/21 18:00 76 17 118/78 03/11/21 17:50 77 21 03/11/21 17:40 81 16 03/11/21 17:31 81 16 03/11/21 17:30 84 20 90/67 L 03/11/21 17:20 87 21 03/11/21 17:10 90 21 03/11/21 17:01 89 21 03/11/21 17:00 90 21 108/73 03/11/21 16:39 21 106/78 95 03/11/21 16:36 94 H 20 94 03/11/21 16:30 94 H 22 106/78 95 03/11/21 16:12 36.1 C L 99 H 16 83/71 L 99 Pulse Ox 03/12/21 12:02 03/12/21 08:00 03/12/21 07:50 03/12/21 04:56 03/11/21 23:51 95 03/11/21 23:10 03/11/21 23:01 03/11/21 23:00 03/11/21 22:50 03/11/21 22:40 03/11/21 22:31 03/11/21 22:30 03/11/21 22:20 03/11/21 22:10 03/11/21 22:01 03/11/21 22:00 03/11/21 21:50 03/11/21 21:40 03/11/21 21:31 03/11/21 21:30 03/11/21 21:20 03/11/21 21:10 03/11/21 21:04 03/11/21 21:03 03/11/21 21:01 03/11/21 21:00 03/11/21 20:50 03/11/21 20:40 03/11/21 20:31 03/11/21 20:30 03/11/21 20:20 03/11/21 20:10 03/11/21 20:01 03/11/21 20:00 03/11/21 19:50 03/11/21 19:40 03/11/21 19:31 03/11/21 19:30 03/11/21 19:21 03/11/21 19:10 03/11/21 19:00 03/11/21 18:50 03/11/21 18:40 03/11/21 18:31 03/11/21 18:30 03/11/21 18:20 03/11/21 18:10 03/11/21 18:01 03/11/21 18:00 03/11/21 17:50 03/11/21 17:40 03/11/21 17:31 03/11/21 17:30 03/11/21 17:20 03/11/21 17:10 03/11/21 17:01 03/11/21 17:00 03/11/21 16:39 03/11/21 16:36 03/11/21 16:30 03/11/21 16:12 Transfer of Care Handoff Completed per policy Notes Mental Status: alert / awake / arousable and participated in evaluation Nausea / Vomiting: adequately controlled Pain: adequately controlled Airway Patency, RR, SpO2: stable & adequate BP & HR: stable & adequate Hydration State: stable & adequate Anesthetic Complications: no major complications apparent and Pt Satisfied with anesthetic care
[2021-03-12] MEDS ORDERED: ONDANSETRON INJ 2 MG/ML 2 ML VIAL ONE (14:35)
--- NOTE | 2021-03-12 16:16 | GI REPORT ---
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 Estimated Blood Loss: Estimated blood loss: none. Procedure: Pre-Anesthesia Assessment: - Prior to the procedure, a History and Physical was performed, and patient medications, allergies and sensitivities were reviewed. The patient's tolerance of previous anesthesia was reviewed. - The risks and benefits of the procedure and the sedation options and risks were discussed with the patient. All questions were answered and informed consent was obtained. - Patient identification and proposed procedure were verified prior to the procedure by the physician and the nurse. The procedure was verified in the procedure room. - Pre-procedure physical examination revealed no contraindications to sedation. After obtaining informed consent, the endoscope was passed under direct vision. Throughout the procedure, the patient's blood pressure, pulse, and oxygen saturations were monitored continuously. The Endoscope was introduced through the mouth, and advanced to the second part of duodenum. The upper GI endoscopy was accomplished without difficulty. The patient tolerated the procedure well. Findings: The examined esophagus was normal. There was evidence of a closed previous gastrostomy present in the gastric body. This was characterized by healthy appearing mucosa. For location marking, one hemostatic clip was successfully placed (MR conditional) for marking in case the fistula does not close completely in the future and requires endoscopic closure. There was no bleeding at the end of the procedure. The entire examined stomach was normal. The patient was placed in the supine position for PEG placement. The stomach was insufflated to appose gastric and abdominal winkler. A site was located in the body of the stomach with excellent transillumination and manual external pressure for placement. The abdominal wall was marked and prepped in a sterile manner. The area was anesthetized with 2 mL of 1% lidocaine. The trocar needle was introduced through the abdominal wall and into the stomach under direct endoscopic view. A snare was introduced through the endoscope and opened in the gastric lumen. The guide wire was passed through the trocar and into the open snare. The snare was closed around the guide wire. The endoscope and snare were removed, pulling the wire out through the mouth. A skin incision was made at the site of needle insertion. The externally removable 20 Fr Mando-Cook gastrostomy tube was lubricated. The G-tube was tied to the guide wire and pulled through the mouth and into the stomach. The trocar needle was removed, and the gastrostomy tube was pulled out from the stomach through the skin. The external bumper was attached to the gastrostomy tube, and the tube was cut to remove the guide wire. The final position of the gastrostomy tube was confirmed by relook endoscopy, and skin marking noted to be 2 cm at the external bumper. The final tension and compression of the abdominal wall by the PEG tube and external bumper were checked and revealed that the bumper was moderately tight and mildly deforming the skin. The feeding tube was capped, and the tube site cleaned and dressed. The duodenal bulb and second portion of the duodenum were normal. Impression: - Normal esophagus. - Closed previous gastrostomy present characterized by healthy appearing mucosa. Clip was placed for marking. - Normal stomach. - Normal duodenal bulb and second portion of the duodenum. - An externally removable PEG placement was successfully completed. - No specimens collected. Recommendation: - Return [facility] to [facility] for [facility] care. - Please follow the post-PEG recommendations including: Nutrition consult for formula and volume, dry dressing only, NPO x4 hrs then water today and may use PEG tomorrow for feedings. - Recall GI if needed. Carolina Noriega MD 03/12/2021 4:15:52 PM This report has been signed electronically. Note Initiated On: 03/12/2021 1:48 PM Number of Addenda: 0 I attest to the content of the Intraoperative Record and orders documented therein, exceptions below {[id number]}
[2021-03-13] MEDS: THIAMINE HCL 100 MG in SYRINGE 9 ML IV SCH (10:14)
[2021-03-13] MEDS: FOLIC ACID 1 MG in SYRINGE 9.8 ML IV SCH (10:14)
--- NOTE | 2021-03-13 13:38 | Gastroenterology Progress Note ---
Date of Service March 13, 2021 Assessment & Plan (1) PEG tube malfunction: (2) Failure to thrive: s/p PEG tube replacement, feeding went well today without any leakage or issue. continue PEG tube feeds as tolerated rest as per primary team will sign off at this time, recall as needed Admission and Anticipated Discharge Date Admission Date: March 11, 2021 Subjective no issues overnight, doing well today. He received PEG feed this afternoon with no leakage or issue. afebrile. Review of Systems Constitutional: no fever and no chills Respiratory: no cough, no dyspnea and no dyspnea on exertion Cardiovascular: no chest pain and no dyspnea Gastrointestinal: as per Subjective / HPI Psychiatric: no depression and no anxiety Physical Exam Constitutional: WD/WN, vitals as above Respiratory: normal respiratory effort, lungs clear to auscultation Cardiovascular: RRR, no murmur, no edema Gastrointestinal (Abdomen): normal bowel sounds, soft, nontender, no hepatosplenomegaly Musculoskeletal: no lower extremity edema Psychiatric: A+Ox3, euthymic affect Results & Data Results & Data ([facility]) Vital Signs (Past 12 Hours) Vital Signs Temp Pulse Pulse Resp BP BP Pulse Ox 03/13/21 11:14 36.4 C L 66 18 109/71 98 03/13/21 07:38 70 03/13/21 07:23 36.6 C 76 18 122/65 95 03/13/21 04:05 36.6 C 72 18 110/65 94 03/13/21 03:53 72 117/62 PG Care Time/CCT Total # of Minutes Spent Total Time Spent with Patient: Total time spent is greater than 50% in coordination of care (as documented) at patient's floor/unit and/or counseling patient: Coding Level of Care Code 61981 Subseq Hosp Care Lvl 3 Diagnoses PEG tube malfunction K94.23 Failure to thrive R62.7 Failure to thrive age range: in adult (1) Failure to thrive Failure to thrive age range: in adult Qualified Code(s): R62.7 - Adult failure to thrive
--- NOTE | 2021-03-13 16:44 | Discharge Summary ---
Date of Service March 13, 2021 Admission HPI Per Admitting Provider Difficult to communicate with patient due to trach tube in place with some slurring of speech. Turner Keller is here after his PEG tube fell out while he was feeding himself on Monday. 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 The PEG tube was placed along with a trach by [facility] in [place] in October. He said he didn't come to get the tube replaced initially because his phone was broken. He has lost 33lbs over the last 3-4 months. talking to son it sounds like they were trying to get him to drink 5 boost shakes a day and he was only able to drink 2-3. He also had started to eat by mouth despite recommendations against that. He reportedly has been drinking approximately 4 alcoholic drinks through his PEG tube prior to it falling out. Son will check on him through the week along with nurses that come 2-3 times a week as well as a friend who is a nurse who has been checking on him. He has been refusing to go to see his oncologist Dr. Flores and had canceled ap pointments. ED course: attempted to replace PEG tube unsuccessfully ER discussed case with surgery and GI GI suggested that PEG tube could possibly be placed in AM with Dr. Noriega Piotr Riojas # [phone] Principal Diagnosis PEG tube dislodgment with replacement Squamous of carcinoma of oropharynx Discharge Exam The patient appeared thin and chronically ill Vital signs as documented. Tracheostomy in anterior neck Lungs are coarse with rhonchorous coughing from likely aspiration Cardiac exam, Rhythm is regular.. No murmurs, rubs or gallops. Abdominal exam reveals normal bowel sounds, soft PEG tube replaced and central left abdomen site looks good Extremities are nonedematous and both pedal pulses are normal. Neurologic exam is alert and oriented, patient cannot speak since he had a removal of his tongue Discharge Data Allergies Allergy/AdvReac Type Severity Reaction Status Date / Time No Known Allergies Allergy Verified 03/11/21 17:30 Consultations 03/11/21 20:09 ED Decision to Admit Stat 03/11/21 23:51 Consult Gastroenterology Routine Procedures Performed Operation Date: 03/12/21 16:30 Actual Procedures p EGD Gastric Tube Placement - Carolina Noriega MD Hospital Course (1) PEG tube malfunction: Reportedly the pts peg tube fell out at home, replaced by Dr. 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, initially diagonsed in 09/2020 completed radiation therapy unclear exactly what his oncological follow-up is (3) RONEL (acute kidney injury): resolved with ivf (4) Alcohol use: (5) Underweight: Underweight/BMI 16.0/Mild-moderate protein calorie malnutrition patient encouraged to see oncology and consider nutritional counseling (6) Goals of care, counseling/discussion: I attempted to have goals of care discussion with the patient given his family's suggestion that he wishes to quit and only uses his PEG tube for beer and sp rafael patient wrote down very clearly on a tablet that he wants to live that although he would love to get rid of his tracheostomy and his PEG tube he understands there requirement at this point time Home Health Attestation I certify that this patient is under my care and that I, or a physicians marketing communications assistant working with me, had a face to-face encounter that meets the home health [id number] encounter requirements with this patient. 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 absences from home require considerable and taxing effort and are for medical reasons or catholic services or infrequently or of short duration when for other reasons) because: Profound weakness due to metastatic cancer Certification for Home Health Services: Based on the above findings, I certify that this patient is confined to the home and needs intermittent fci care, physical therapy and/or speech therapy or continues to need occupational therapy. The patient is under my care, and I have initiated the establishment of the plan of care. This patient will be followed by a physician who will periodically review the plan of care. Total Time Total Time Spent Total Time Spent (In Minutes): It required greater than 30 minutes to prepare this patient for discharge Discharge Plan Discharge Items Patient Disposition: Home - Home Health Services Reason For Visit: PEG TUBE REPLACEMENT Discharge Diagnosis: peg tube replacement cancer of the tongue Activity: Resume your previous activity Non-emergency contact: Primary Care Provider Call non-emergency contact if: you have any medication questions and you have a fever Follow-up/Referrals: Skyla Gandara CRNP [Primary Care Provider] - Darryl Flores MD [Surgeon] - (call on Monday for follow up) Diet: Nothing by Mouth Diet Comment: use one can of ensure or boost with fiber, 5 x's a day Addtl Attending Provider Instructions: use water or liquid 100-200ml between feedings and 100ml of water after each feedings thru the peg tube please follow up with [facility] oncology Pending Studies at Discharge: No Stand-Alone Forms: My [facility] [employer], Smoking Cessation Medications and DC Order Prescriptions: New Boost 0.04 gram- 1 kcal/mL liquid 1 ea PO 5XD Qty: 6399 RF: 0 No Action No Known Home Medications RF: 0 Discharge Orders: Discharge Order (Routine); Ordered 03/13/21 Ordered By: Bradley Asif/Other Patient Handouts: Understanding PEG Tube Feeding Admission Data Admit Date/Time: 03/11/21 21:32 Attending Provider: Bradley Beck Admit Provider: Kiran Angulo Primary Care Provider: Skyla Gandara Other Providers: Meliza Ferrer ; Carolina Noriega Other Interventions: Discharge Summary Assessment (RN) Last Done: 03/13/21 16:07 Coding Level of Care Code D/C Day Management >30 mins Diagnoses PEG tube malfunction K94.23 Squamous cell carcinoma of tongue C02.9 RONEL (acute kidney injury) N17.9 Alcohol use Z72.89 Underweight R63.6 Goals of care, counseling/discussion Z71.89
--- NOTE | 2021-03-24 10:30 | Coding Query ---
CODING QUERY To promote full compliance with coding requirements relating to patient care, provider participation is requested in all cases of semiautomatic stitcher operator uncertainty. Please assist us with the question(s) below: Coding Question(s): 1. PEG tube dislodgment is documented as well as PEG tube malfunction with documentation that the patient's PEG tube fell out at home. Please specify below, in your clinical opinion, regarding the PEG tube. ( xx ) PEG tube dislodgment from falling out at home, and Malfunction of the PEG tube ( ) PEG tube dislodgment from falling out at home, with NO Malfunction of the PEG tube ( ) PEG tube dislodgment from other, with Malfunction of the PEG tube. Please specify dislodgment ( ) PEG tube dislodgment from other, with NO Malfunction of the PEG tube. Please specify dislodgment ( ) Other: Please Specify 2. Alcohol Abuse is documented on the ER H&P and Alcohol Use is documented in the rest of the record. Please specify below, in your clinical opinion. ( ) Alcohol Abuse ( xx ) Alcohol Use ( ) Other: Please Specify Physician's Response(s): Thank you Catarina Fletcher Principal Diagnosis: "that condition established after study, to be chiefly responsible for occasioning the admission of the patient to the hospital for care." Co-Existing Principal Diagnosis: "when two or more diagnoses equally meet the criteria for principal diagnosis as determined by the circumstances of admission, diagnostic work up, and/or therapy provided, and the Alphabetic Index, Tabular List, or another coding guideline does not provide sequencing direction, any one of the diagnoses may be sequenced first." "When the physician has documented what appears to be a current diagnosis in the body of the record, but has not included the diagnosis in the final diagnostic statement, the physician should be asked whether the diagnosis should be added." (Source Coding [facility] 2 QTR90. p3-4) JIM
== END 2021-03-13 19:57 | disposition home health service (06) | DRG 394 ==
LOC: ED 16:06 → SUATTDRO 21:32 → 2N 21:32

== ENCOUNTER 2021-11-11 15:35 | Inpatient (IN) ==
--- NOTE | 2021-11-11 15:59 | Emergency Department Note ---
History of Present Illness General Chief complaint: Confusion Stated complaint: FALL Time Seen by Provider: 11/11/21 15:39 History of Present Illness 66-year-old male via EMS reportedly was found down by family he is nonverbal currently may be on hospice but that is unknown at this time. He presents with alteration mental status and had apparently has decannulated his trach. Patient reportedly is verbal according to the nurse at bedside. Currently there is no further history available to me as to this patient's presentation; Pt is reportedly on hospice alf Medications Medication Instructions Recorded Confirmed Type No Known Home Medications 03/11/21 11/11/21 History Allergies Allergy/AdvReac Type Severity Reaction Status Date / Time No Known Allergies Allergy Verified 11/11/21 17:26 Past Med/Surg History Medical History Abnormality of tongue Adult failure to thrive Alcohol intoxication Alcohol use Ambulatory dysfunction Anemia Change in mental status DVT prophylaxis Hypokalemia Hyponatremia Leukocytosis Precordial chest pain Thrombocytosis Surgical History Hx of gastrostomy (~09/2020) Hx of glossectomy Hx of tracheostomy (~09/2020) Social History Smoking Status: Unknown if ever smoked Tobacco Type: Cigarettes Age Started Using Tobacco: 16; packs per day: 1.5; Years Smoked: 50; Cigarettes Per Day: 1/2 pack per day; Second Hand Exposure: No; Hx Alcohol Use: Yes Alcohol type: beer Alcohol type Comment: since trach and peg tube, takes 4 beers per day via peg Hx Substance Use: Yes Last Used Substance: Days (ago) Preferred Language: Urdu Communication Ability: Impaired Visual Impairment: No Limitations Hearing Ability: Normal Automatic Data Processing Planner Required: No Beliefs That Will Affect Care: None marital status: Current Living Situation: Alone Current Living Situation Comment: son Shine lives nearby, is supportive and helpful current occupational status: retired current occupation: retired from construction work How many Children do You have: 1 Feels Safe at Home: Yes Childhood Exposure to Second-Hand Smoke: Yes Diet Comment: bolus tube feedings via PEG caffeine: No during the past year weight has: decreased > 10 lbs Dental Care, Regularly: No Physical Activity Frequency: Does not Exercise Seatbelt Use: always Sunscreen Use: No Assistive Devices: Cane Review of Systems Unobtainable due to cognitive status Physical Exam Vital Signs Vital Signs - 24 hr 11/11/21 16:02 11/11/21 16:15 11/11/21 16:27 Temperature 36.9 C Temperature Source Rectal Pulse Rate 122 H 112 H Pulse Rhythm Regular Regular Pulse Strength Normal Respiratory Rate 22 20 Respiratory Effort / Characteristics Non-Labored Non-Labored Respiratory Depth Normal Normal Respiratory Pattern Regular Blood Pressure 127/86 Blood Pressure [Right Arm] 110/80 Blood Pressure Mean 99 Blood Pressure Mean [Right Arm] 90 Blood Pressure Position Lying Blood Pressure Position [Right Arm] Lying Pulse Oximetry 100 98 Oxygen Delivery Method Free Flow/Blow- by Free Flow/Blow- by Free Flow/Blow- by Oxygen Flow Rate 15 Sepsis Recent Fever Within 48 Hours No Sepsis New/Unexplained Change in Mental Status No Sepsis Action Taken by Nursing Physician Notified VITAL SIGNS - Vital signs and nursing notes were reviewed. GENERAL -patient appears ill and cachectic SKIN -multiple skin tears and ecchymosis throughout the patient's upper and lower extremities HEAD - NC/AT. EYES - PERRL with EOMI bilaterally. Sclera anicteric. Palpebral conjunctiva pink and moist with no injection noted. EARS - No deformities of external structures noted on gross examination bilaterally. retraction or bulging. No fluid or purulent material visualized behind the TM. Handle of malleus, umbo, cone of light, pars tensa/flaccid all easily visualized. NOSE - Midline and without cyanosis. No epistaxis or purulent drainage noted. MOUTH/OROPHARYNX -poor dentition, dry mucous membranes . NECK - Neck with FROM. Trach stoma is present with a tracheostomy tube outside the lateral to the patient's neck LUNGS - Chest wall symmetric without accessory muscle use, intercostals retractions, or central cyanosis. Normal vesicular breath sounds CTA B/L. No wheezes, rales, or rhonchi appreciated. CARDIAC - RRR with S1/S2. No murmur, rubs, or gallops appreciated. ABDOMEN - Abdominal is flat with a PEG tube present. EXTREMITIES - No clubbing or peripheral cyanosis. No pretibial edema present. +3/5 radial, posterior tibial, and dorsalis pedis pulses palpated throughout. +5/5 strength noted in UE/LE bilaterally. NEUROLOGIC - Cranial nerves II through XII grossly intact. Patient is nonverbal PSYCH -patient is nonverbal Procedures Free Text Procedures Recannulation of a 6 Shiley tracheostomy tube; patient had decannulated his trachea and an open stoma was suctioned by respiratory therapy prior to my arrival a 6 Shiley that was brand-new was placed by me without any complications, the patient tolerated the procedure well Course Course The child welfare caseworker tried to speak with the son Shine he was not forthcoming with any information, they were able to contact [facility] hospice, is unknown whether the patient has a POLST with them at this time. Patient reportedly is living in deplorable conditions without running water. Unable to care for himself according to EMS. And according to the child welfare caseworker the son is not completely active in this patient's care Administered Medications Discontinued Medications Cefepime HCl (Maxipime) 2,000 mg in 20 mls @ 5 mls/min IV NOW STA; Protocol Stop: 11/11/21 17:14 Last Admin: 11/11/21 17:34 Dose: 5 mls/min Documented by: [id number] Medical Decision Making Medical Records Attestation: I reviewed the patient's medical records. Home Medications Current Medication List: was personally reviewed by me Laboratory Data Attestation: I reviewed the patient's lab results. Result diagrams: 11/11/21 16:11 11/11/21 16:11 Lab Results 11/11/21 11/11/21 11/11/21 Range/Units 16:11 16:11 16:11 WBC 29.87 H (4.8-10.8) K/uL RBC 3.54 L (4.7-6.1) M/uL Hgb 11.4 L (14.0-18.0) g/dL Hct 33.5 L (42-52) % MCV 94.6 (80-100) fL MCH 32.2 (25-34) pg MCHC 34.0 (32-36) g/dL RDW Std Deviation 46.4 H (36.4-46.3) fL RDW Coeff of Martha 13.3 (11.5-14.5) % Plt Count 271 (130-400) K/uL MPV 9.4 (7.4-10.4) fL Immature Gran % (Auto) 0.5 % Neut % (Auto) 97.7 % Lymph % (Auto) 0.9 % [place] % (Auto) 0.9 % Eos % (Auto) 0.0 % Baso % (Auto) 0.0 % Neut # (Auto) 29.14 H (1.4-6.5) K/uL Lymph # (Auto) 0.28 L (1.2-3.4) K/uL [place] # (Auto) 0.28 (0.11-0.59) K/uL Eos # (Auto) 0.00 (0-0.5) K/uL Baso # (Auto) 0.01 (0-0.2) K/uL Immature Gran # (Auto) 0.16 H (0.00-0.02) K/uL Hypochromasia Present Echinocytes 1+ PT 13.4 H (9.0-12.0) Seconds INR 1.4 H (0.9-1.1) APTT 31.5 H (21.0-31.0) Seconds PTT Ratio 1.2 Sodium 136 (136-145) mmol/L Potassium 3.8 (3.5-5.1) mmol/L Chloride 98 (98-107) mmol/L Carbon Dioxide 26 (21-32) mmol/L Anion Gap 12.0 H (3-11) BUN 35 H (7-18) mg/dl Creatinine 1.24 (0.6-1.4) mg/dl Est Cr Clr Drug Dosing Not Reportable Est GFR ( Amer) 70.3 ml/min Est GFR (Non-Af Amer) 60.6 ml/min BUN/Creatinine Ratio 28.1 H (10-20) Glucose 94 (70-99) mg/dl Lactate (0.4-2.0) mmol/L Calcium 9.1 (8.5-10.1) mg/dl Magnesium 2.0 (1.8-2.4) mg/dl Total Bilirubin 0.8 (0.2-1) mg/dl AST 90 H (15-37) U/L ALT 35 (12-78) Alkaline Phosphatase 125 H (45-117) U/L Total Protein 5.8 L (6.4-8.2) gm/dl Albumin 1.8 L (3.4-5.0) gm/dl Globulin 4.0 (2.5-4.0) gm/dl Albumin/Globulin Ratio 0.5 L (0.9-2) SARS-CoV-2 (PCR) (Negative) Influenza Type A (PCR) (Neg) Influenza Type B (PCR) (Neg) RSV (RT-PCR) (Neg) 11/11/21 11/11/21 Range/Units 16:37 16:48 WBC (4.8-10.8) K/uL RBC (4.7-6.1) M/uL Hgb (14.0-18.0) g/dL Hct (42-52) % MCV (80-100) fL MCH (25-34) pg MCHC (32-36) g/dL RDW Std Deviation (36.4-46.3) fL RDW Coeff of Martha (11.5-14.5) % Plt Count (130-400) K/uL MPV (7.4-10.4) fL Immature Gran % (Auto) % Neut % (Auto) % Lymph % (Auto) % [place] % (Auto) % Eos % (Auto) % Baso % (Auto) % Neut # (Auto) (1.4-6.5) K/uL Lymph # (Auto) (1.2-3.4) K/uL [place] # (Auto) (0.11-0.59) K/uL Eos # (Auto) (0-0.5) K/uL Baso # (Auto) (0-0.2) K/uL Immature Gran # (Auto) (0.00-0.02) K/uL Hypochromasia Echinocytes PT (9.0-12.0) Seconds INR (0.9-1.1) APTT (21.0-31.0) Seconds PTT Ratio Sodium (136-145) mmol/L Potassium (3.5-5.1) mmol/L Chloride (98-107) mmol/L Carbon Dioxide (21-32) mmol/L Anion Gap (3-11) BUN (7-18) mg/dl Creatinine (0.6-1.4) mg/dl Est Cr Clr Drug Dosing Est GFR ( Amer) ml/min Est GFR (Non-Af Amer) ml/min BUN/Creatinine Ratio (10-20) Glucose (70-99) mg/dl Lactate 3.4 H* (0.4-2.0) mmol/L Calcium (8.5-10.1) mg/dl Magnesium (1.8-2.4) mg/dl Total Bilirubin (0.2-1) mg/dl AST (15-37) U/L ALT (12-78) Alkaline Phosphatase (45-117) U/L Total Protein (6.4-8.2) gm/dl Albumin (3.4-5.0) gm/dl Globulin (2.5-4.0) gm/dl Albumin/Globulin Ratio (0.9-2) SARS-CoV-2 (PCR) NEGATIVE (Negative) Influenza Type A (PCR) Negative (Neg) Influenza Type B (PCR) Negative (Neg) RSV (RT-PCR) Negative (Neg) Imaging Data Radiologist's Impression: Head CT 11/11/21 15:47 CT head/brain wo con CLINICAL HISTORY: ams Technique: Contiguous axial CT images of the head were acquired from the base of the skull to the vertex without intravenous contrast administration. Images were viewed in brain, subdural and bone windows. Automated dose lowering techniques and/or adjustment according to patient size were utilized for this exam. Comparison: Comparison is made to head CT 10/04/2020 Findings: Areas of decreased attenuation are present in the periventricular and subcortical white matter bilaterally consistent with small vessel ischemic disease. Generalized cerebral atrophy with commensurate enlargement of the ventricles, sulci, and cisterns is also present. There is no acute intracranial hemorrhage or evidence of acute territorial infarction. No shift of the midline structures, mass effect, or extra-axial abnormalities are shown. Atherosclerotic calcifications are present in the intracranial segments of the internal carotid arteries. There is a hyperdense 10 mm lesion in the foramen of Monro compatible with previously seen colloid cyst. Imaged portions of the paranasal sinuses and mastoid air cells are clear. The orbits appear normal. There are no acute fractures of the calvaria or scalp swelling. Impression: Stable colloid cyst. Otherwise expected age-related abnormalities. No acute abnormalities are seen. ACT 112: Negative or not required by law. Electronically signed by: Ti Garcia M.D. 11/11/2021 5:38 PM Chest X-Ray 11/11/21 15:48 XR chest 1V portable CLINICAL HISTORY: SEPSIS TECHNIQUE: Single frontal radiograph of the chest was obtained. Comparison: Comparison is made to chest one view 09/28/2021 FINDINGS: Tracheostomy tube is seen. The aorta is tortuous. The remainder of the cardiomediastinal silhouette is unremarkable. There is additional density in the lower right peripheral lung. No evidence of pleural effusion or pneumothorax. IMPRESSION: Right lower lung pleural-based opacity is nonspecific, may represent a focus of atelectasis. ACT 112: Negative or not required by law. Electronically signed by: Ti Garcia M.D. 11/11/2021 6:37 PM ECG Data Attestation: I personally reviewed and interpreted this ECG as follows: Additional Comments: EKG interpreted by me sinus tachycardia rate of 118 left axis deviation nonspecific ST-T change globally poor R wave progression the precordium MDM Narrative Medical decision making differential diagnosis includes alteration mental status, stroke, intracranial hemorrhage, sepsis metabolic derangement,d ecompensation Impression & Plan Altered mental status, Sepsis, Tracheostomy, acute management Discharge Plan Visit Data Chief Complaint: Confusion Stated Complaint: FALL ED Provider: Prince Metz Discharge Problem: Altered mental status, Sepsis, Tracheostomy, acute management Forms Stand Alone Forms: Food52 Prescriptions Prescriptions: No Action No Known Home Medications RF: 0 Referrals Referrals: Skyla Gandara CRNP [Primary Care Provider] - Discharge Problem: Altered mental status Qualifiers: Altered mental status type: unspecified Qualified Code(s): R41.82 - Altered mental status, unspecified Sepsis Qualifiers: Sepsis type: sepsis due to unspecified organism Sepsis acute organ dysfunction status: unspecified Qualified Code(s): A41.9 - Sepsis, unspecified organism
[2021-11-11 16:22] LABS: Hematocrit (blood only) 33.5 % (42-52); Hemoglobin 11.4 g/dL (14.0-18.0); Mean Corpuscular Hemoglobin 32.2 pg (25-34); Mean Corpuscular Volume 94.6 fL (80-100); Mean Platelet Volume 9.4 fL (7.4-10.4); Platelet Count 271 K/uL (130-400); RDW Coefficient of Variation 13.3 % (11.5-14.5); RDW Standard Deviation 46.4 fL (36.4-46.3); Red Blood Count 3.54 M/uL (4.7-6.1); White Blood Count 29.87 K/uL (4.8-10.8)
[2021-11-11 16:31] LABS: INR 1.4 (0.9-1.1); Partial Thromboplastin Ratio 1.2; Partial Thromboplastin Time 31.5 Seconds (21.0-31.0); Prothrombin Time 13.4 Seconds (9.0-12.0)
[2021-11-11 16:40] LABS: Basophils # (auto) 0.01 K/uL (0-0.2); Echinocytes 1+; Hypochromasia Present; Immature Granulocytes # (auto) 0.16 K/uL (0.00-0.02); Immature Granulocytes % (auto) 0.5 %; Lymphocytes # (auto) 0.28 K/uL (1.2-3.4); Lymphocytes % (auto) 0.9 %; Monocytes # (auto) 0.28 K/uL (0.11-0.59); Monocytes % (auto) 0.9 %; Neutrophils # (auto) 29.14 K/uL (1.4-6.5); Neutrophils % (auto) 97.7 %
[2021-11-11 16:59] LABS: Alanine Aminotransferase 35 (12-78); Albumin Level 1.8 gm/dl (3.4-5.0); Aspartate Aminotransferase 90 U/L (15-37); BUN Creatinine Ratio 28.1 (10-20); Blood Urea Nitrogen 35 mg/dl (7-18); Calcium 9.1 mg/dl (8.5-10.1); Carbon Dioxide 26 mmol/L (21-32); Chloride 98 mmol/L (98-107); Est GFR (African American) 70.3 ml/min; Est GFR (Non-African American) 60.6 ml/min; Glucose 94 mg/dl (70-99); Potassium 3.8 mmol/L (3.5-5.1); Sodium 136 mmol/L (136-145)
[2021-11-11 17:02] LABS: Albumin Globulin Ratio 0.5 (0.9-2); Alkaline Phosphatase 125 U/L (45-117); Bilirubin,Total 0.8 mg/dl (0.2-1); Total Protein 5.8 gm/dl (6.4-8.2)
[2021-11-11] MEDS ORDERED: CEFEPIME 2,000 MG/20 ML VIAL IV STA (17:11)
[2021-11-11] MEDS ORDERED: VANCOMYCIN CONSULT ACTIVE PRN (17:12)
[2021-11-11] MEDS ORDERED: VANCOMYCIN HCL 1,000 MG in SODIUM CHLORIDE 0.9% 500 ML IV ONE (17:12)
--- NOTE | 2021-11-11 17:39 | CT Scan Report ---
CT head/brain wo con CLINICAL HISTORY: ams Technique: Contiguous axial CT images of the head were acquired from the base of the skull to the faye tejal without intravenous contrast administration. Images were viewed in brain, subdural and bone [facility]. Automated dose lowering techniques and/or adjustment according to patient size were utilized for this exam. Comparison: Comparison is made to head CT 10/04/2020 Findings: Areas of decreased attenuation are present in the periventricular and subcortical white matter bilate rally consistent with small vessel ischemic disease. Generalized cerebral atrophy with commensurate e nlargement of the ventricles, sulci, and cisterns is also present. There is no acute intracranial hem orrhage or evidence of acute territorial infarction. No shift of the midline structures, mass effect, or extra-axial abnormalities are shown. Atherosclerotic calcifications are present in the intracran ial segments of the internal carotid arteries. There is a hyperdense 10 mm lesion in the foramen of M onro compatible with previously seen colloid cyst. Imaged portions of the paranasal sinuses and mastoid air cells are clear. The orbits appear normal. There are no acute fractures of the calvaria or scalp swelling. Impression: Stable colloid cyst. Otherwise expected age-related abnormalities. No acute abnormalities are seen. ACT 112: Negative or not required by law. Electronically signed by: Ti Garcia M.D. 11/11/2021 5:38 PM
[2021-11-11 18:15] LABS: Influenza A virus by PCR Negative (Neg); Influenza B virus by PCR Negative (Neg); RSV by PCR Negative (Neg); SARS CoV2 RNA(COVID-19) InHosp NEGATIVE (Negative)
[2021-11-11] MEDS ORDERED: SODIUM CHLORIDE 0.9% 1000ML 2,000 ML IV ONE (18:22)
--- NOTE | 2021-11-11 18:39 | XRay Report ---
XR chest 1V portable CLINICAL HISTORY: SEPSIS TECHNIQUE: Single frontal radiograph of the chest was obtained. Comparison: Comparison is made to chest one view 09/28/2021 FINDINGS: Tracheostomy tube is seen. The aorta is tortuous. The remainder of the cardiomediastinal silhouette i s unremarkable. There is additional density in the lower right peripheral lung. No evidence of pleura l effusion or pneumothorax. IMPRESSION: Right lower lung pleural-based opacity is nonspecific, may represent a focus of atelectasis. ACT 112: Negative or not required by law. Electronically signed by: Ti Garcia M.D. 11/11/2021 6:37 PM
[2021-11-11 20:20] LABS: Appearance Urine Clear (Clear); Bacteria Urine Automated Negative (Negative); Blood Urine 2+ (Negative); Color Urine Dark Yellow; Epithelial Cell Urine Auto 20-30 /lpf (0-5); Glucose Urine UA Negative (Negative); Ketones Urine Trace (Negative); Leukocyte Esterase Urine Negative (Negative); Nitrite Urine Negative (Negative); Protein Urine 1+ (Negative); RBC Urine Automated >30 /hpf (0-4); Specific Gravity Urine 1.022 (1.000-1.030); Urobilinogen Urine Negative (Negative)
[2021-11-11 20:21] LABS: Bilirubin Urine 1+ (Negative)
[2021-11-11 20:25] LABS: C Reactive Protein 36.5 mg/dl (0-0.29)
[2021-11-11 20:31] LABS: Cast Urine Automated >30 /lpf (0-5)
[2021-11-11 20:36] LABS: Amphetamines+Metham, Urine Neg (Neg); Barbiturates, Urine Neg (Neg); Benzodiazepine, Urine Neg (Neg); Cocaine, Urine Neg (Neg); MDMA (Ecstacy), Urine Neg (Neg); Methadone, Urine Pos (Neg); Opiate, Urine Neg (Neg); Phencyclidine, Urine Neg (Neg)
[2021-11-11] MEDS ORDERED: OPTIRAY 320 125ml IV ONE (21:07)
--- NOTE | 2021-11-11 21:21 | History & Physical Report ---
Date of Service November 11, 2021 Assessment & Plan (1) Goals of care, counseling/discussion: Plan: Discussed with [facility] and patient has refused to have any written goals. Only recorded relative is his son Shine. I tried to communicate with the patient with writing as this is primarily the way he communicates however he is unable to do this at the current time. On discussion with Shine (see HPI) patient is DNR/DNI but for active care for the infection including further imaging as warranted. Ok to continue to use his feeding tube. (2) Sepsis: Plan: Lactate 3.4 with no change with 2L bolus IV fluids Vancomycin and cefepime given in the ER - cefepime switched to Zosyn for better aspiration pneumonia coverage Suspected source aspiration pneumonia although given lack of history will get CT head, neck, chest, abdomen and pelvis (3) Aspiration pneumonia: Plan: Suspected, treatment as above (4) Altered mental status: Plan: Suspect secondary to sepsis as above CT head pending ?secondary to opiates, will continue his usual methadone to avoid withdrawal Alcohol level negative (5) 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 - reason for tracheostomy (6) Severe protein-calorie malnutrition: Plan: Consult dietary (7) Tracheostomy dependent: Plan: Routine trach care Plan: VTE Prophylaxis - deferred pending CT for PE Diet - NPO, consult dietary to assess feeding tube requirements Disposition - admit to PCU, unsafe to return home even on hospice per hospice agency Admission and Anticipated Discharge Date Admission Date: November 11, 2021 History of Present Illness Chief Complaint: Altered mental state, generalized weakness Primary Care Provider: REGINA Foster Turner Keller is a 66 year old male with metastatic squamous cell carcinoma on hospice care who presents to the ER after being found on the ground by hospice earlier today. The patient is unable to provide any history due to altered mental state therefore history taken from hand over sheet and discussion with [facility]. At baseline he has some mild confusion. Today he was awake but unable to answer questions which is unusual for him. He is usually able to communicate with writing. 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 Acutely concerned about generalized weakness, worse on the right side and change in his personality. His tracheostomy was also pulled out. Reportedly his house is now unsafe for him to be alone, he is suspected to not be taking his medications and has no running water. On discussion with [facility] ( ) he has previously refused to sign any paperwork for advance directives, living will, POLST or POA. He has one listed relative who is his son Shine (also listed in our EHR). On discussion with Shine: Discussed wishes given the only other time he was in the ER he refused care. He reports his dad will usually take pills but just likes to avoid the hospital, ok for antibiotics and to continue feeding tube, DNR/DNI. Also notes the patient tends to get drunk by putting alcohol into his feeding tube and this is what he suspect happened. In the ER CXR is concerning for pneumonia. WBC raised to 29.87. He received vancomycin and cefepime. Lactate 3.4. NSS 2L bolus given for fluid resusciation. SARS-COV-2 and influenza PCR negative. He was referred to medicine for admission and ongoing management of sepsis with suspect source pneumonia. Allergies Allergy/AdvReac Type Severity Reaction Status Date / Time No Known Allergies Allergy Verified 11/11/21 22:05 Home Medications Medication Instructions Recorded Confirmed Type Majic Mouthwash 5 ml PO QID 11/11/21 11/11/21 History Tube Feeding 1 ea PEG DIRECTED 11/11/21 11/11/21 History acetaminophen 500 mg tablet 500 mg PO BID PRN 11/11/21 11/11/21 History amoxicillin 400 mg/5 mL oral 400 mg PO Q8H 11/11/21 11/11/21 History suspension dexamethasone 4 mg tablet 4 mg PO DAILY 11/11/21 11/11/21 History (Decadron) gabapentin 300 mg capsule 300 mg PO TID 11/11/21 11/11/21 History haloperidol lactate 5 mg/mL 1 mg IM Q4H 11/11/21 11/11/21 History injection solution hyoscyamine sulfate 0.125 mg 0.125 mg PO BID PRN 11/11/21 11/11/21 History tablet (Levsin) ipratropium 0.5 mg-albuterol 3 mg 3 ml INHALATION QID 11/11/21 11/11/21 History (2.5 mg base)/3 mL nebulization soln lorazepam 0.5 mg tablet (Ativan) 0.5 mg PO Q4H PRN 11/11/21 11/11/21 History melatonin 3 mg capsule 3 mg PO HS PRN 11/11/21 11/11/21 History methadone 10 mg/5 mL oral solution 2.5 mg PO BID 11/11/21 11/11/21 History morphine 20 mg/5 mL (4 mg/mL) oral 20 mg PO Q4H PRN 11/11/21 11/11/21 History solution nortriptyline 25 mg capsule 75 mg PO HS 11/11/21 11/11/21 History (Pamelor) omeprazole 20 mg capsule,delayed 20 mg PO DAILY 11/11/21 11/11/21 History release Past Med/Surg History Medical History Abnormality of tongue Adult failure to thrive Alcohol intoxication Alcohol use Ambulatory dysfunction Anemia Change in mental status DVT prophylaxis Hypokalemia Hyponatremia Leukocytosis Precordial chest pain Thrombocytosis Surgical History Hx of gastrostomy (~09/2020) Hx of glossectomy Hx of tracheostomy (~09/2020) Social History Smoking Status: Unknown if ever smoked Tobacco Type: Cigarettes Age Started Using Tobacco: 16; packs per day: 1.5; Years Smoked: 50; Cigarettes Per Day: 1/2 pack per day; Second Hand Exposure: No; Hx Alcohol Use: Yes Alcohol type: beer Alcohol type Comment: since trach and peg tube, takes 4 beers per day via peg Hx Substance Use: Yes Last Used Substance: Days (ago) Preferred Language: Kinyarwanda Communication Ability: Impaired Visual Impairment: No Limitations Hearing Ability: Normal Associate Director Finance Required: No Beliefs That Will Affect Care: None marital status: Current Living Situation: Alone Current Living Situation Comment: son Shine lives nearby, is supportive and helpful current occupational status: retired current occupation: retired from construction work How many Children do You have: 1 Feels Safe at Home: Yes Childhood Exposure to Second-Hand Smoke: Yes Diet Comment: bolus tube feedings via PEG caffeine: No during the past year weight has: decreased > 10 lbs Dental Care, Regularly: No Physical Activity Frequency: Does not Exercise Seatbelt Use: always Sunscreen Use: No Assistive Devices: Cane Review of Systems Review of Systems: Unobtainable due to cognitive status Physical Exam Constitutional: + ill appearing and + cachectic; no acute distress Eyes: PERRL, conjunctivae normal, anicteric sclerae ENMT: Mouth: + dry oral mucous membranes Neck: + tracheostomy present; no tracheal deviation Respiratory: + labored breathing, + retractions and + uses accessory muscles; expiratory phase not prolonged Auscultation: + rhonchi (throughout); no wheezes Cardiovascular: Rate/Rhythm: regular rhythm and + tachycardic Heart Sounds: no murmur Extremities: normal capillary refill; no calf tenderness and no pedal edema Gastrointestinal (Abdomen): Inspection/Auscultation: + hypoactive bowel sounds Percussion/Palpation: abdomen soft; abdomen nontender, no guarding and abdomen not rigid Skin: No areas of cellulitis Neurologic: moves all extremities (left > right), awake and + confused (unable to follow 1 step commands, prefering left UE but moving right UE) Psychiatric: Orientation: alert; + not oriented x 3 Apperance: + disheveled Results & Data Results & Data ([facility]) Vital Signs (Past 12 Hours) Vital Signs Temp Pulse Pulse Resp BP BP Pulse Ox 11/11/21 20:30 105 H 33 H 142/95 H 100 11/11/21 20:20 105 H 21 100 11/11/21 20:10 114 H 19 100 11/11/21 20:00 113 H 21 137/101 H 99 11/11/21 19:30 106 H 18 128/80 100 11/11/21 19:00 112 H 112 H 21 107/73 107/73 100 11/11/21 18:30 113 H 22 120/73 100 11/11/21 18:20 115 H 25 H 100 11/11/21 17:40 119 H 21 100 11/11/21 17:30 115 H 20 109/69 11/11/21 16:40 115 H 23 11/11/21 16:30 114 H 30 H 11/11/21 16:27 112 H 20 110/80 98 11/11/21 16:22 115 H 33 H 97 11/11/21 16:15 36.9 C 122 H 22 127/86 100 Laboratory Results Abnormal lab results 12/11/11/21 11/11/21 Range/Units 16:11 16:11 16:11 WBC 29.87 H (4.8-10.8) K/uL RBC 3.54 L (4.7-6.1) M/uL Hgb 11.4 L (14.0-18.0) g/dL Hct 33.5 L (42-52) % RDW Std Deviation 46.4 H (36.4-46.3) fL Neut # (Auto) 29.14 H (1.4-6.5) K/uL Lymph # (Auto) 0.28 L (1.2-3.4) K/uL Immature Gran # (Auto) 0.16 H (0.00-0.02) K/uL ESR (0-20) mm/hr PT 13.4 H (9.0-12.0) Seconds INR 1.4 H (0.9-1.1) APTT 31.5 H (21.0-31.0) Seconds Anion Gap 12.0 H (3-11) BUN 35 H (7-18) mg/dl BUN/Creatinine Ratio 28.1 H (10-20) Lactate (0.4-2.0) mmol/L AST 90 H (15-37) U/L Alkaline Phosphatase 125 H (45-117) U/L Total Creatine Kinase (39-308) U/L C-Reactive Protein (0-0.29) mg/dl Total Protein 5.8 L (6.4-8.2) gm/dl Albumin 1.8 L (3.4-5.0) gm/dl Albumin/Globulin Ratio 0.5 L (0.9-2) Lipase (73-393) U/L Procalcitonin (0-0.5) ng/ml Urine Protein (Negative) Urine Ketones (Negative) Urine Blood (Negative) Urine Bilirubin (Negative) Urine RBC (Auto) (0-4) /hpf U Hyaline Cast (Auto) (0-5) /lpf U Epithel Cells (Auto) (0-5) /lpf Ur Methadone, Qual (Neg) 11/11/21 11/11/21 11/11/21 Range/Units 16:11 16:11 16:11 WBC (4.8-10.8) K/uL RBC (4.7-6.1) M/uL Hgb (14.0-18.0) g/dL Hct (42-52) % RDW Std Deviation (36.4-46.3) fL Neut # (Auto) (1.4-6.5) K/uL Lymph # (Auto) (1.2-3.4) K/uL Immature Gran # (Auto) (0.00-0.02) K/uL ESR 65 H (0-20) mm/hr PT (9.0-12.0) Seconds INR (0.9-1.1) APTT (21.0-31.0) Seconds Anion Gap (3-11) BUN (7-18) mg/dl BUN/Creatinine Ratio (10-20) Lactate (0.4-2.0) mmol/L AST (15-37) U/L Alkaline Phosphatase (45-117) U/L Total Creatine Kinase 935 H (39-308) U/L C-Reactive Protein 36.50 H (0-0.29) mg/dl Total Protein (6.4-8.2) gm/dl Albumin (3.4-5.0) gm/dl Albumin/Globulin Ratio (0.9-2) Lipase 26 L (73-393) U/L Procalcitonin 4.15 H (0-0.5) ng/ml Urine Protein (Negative) Urine Ketones (Negative) Urine Blood (Negative) Urine Bilirubin (Negative) Urine RBC (Auto) (0-4) /hpf U Hyaline Cast (Auto) (0-5) /lpf U Epithel Cells (Auto) (0-5) /lpf Ur Methadone, Qual (Neg) 11/11/21 11/11/21 11/11/21 Range/Units 16:37 18:27 19:57 WBC (4.8-10.8) K/uL RBC (4.7-6.1) M/uL Hgb (14.0-18.0) g/dL Hct (42-52) % RDW Std Deviation (36.4-46.3) fL Neut # (Auto) (1.4-6.5) K/uL Lymph # (Auto) (1.2-3.4) K/uL Immature Gran # (Auto) (0.00-0.02) K/uL ESR (0-20) mm/hr PT (9.0-12.0) Seconds INR (0.9-1.1) APTT (21.0-31.0) Seconds Anion Gap (3-11) BUN (7-18) mg/dl BUN/Creatinine Ratio (10-20) Lactate 3.4 H* 3.4 H* (0.4-2.0) mmol/L AST (15-37) U/L Alkaline Phosphatase (45-117) U/L Total Creatine Kinase (39-308) U/L C-Reactive Protein (0-0.29) mg/dl Total Protein (6.4-8.2) gm/dl Albumin (3.4-5.0) gm/dl Albumin/Globulin Ratio (0.9-2) Lipase (73-393) U/L Procalcitonin (0-0.5) ng/ml Urine Protein 1+ H (Negative) Urine Ketones Trace H (Negative) Urine Blood 2+ H (Negative) Urine Bilirubin 1+ H (Negative) Urine RBC (Auto) >30 H (0-4) /hpf U Hyaline Cast (Auto) >30 H (0-5) /lpf U Epithel Cells (Auto) 20-30 H (0-5) /lpf Ur Methadone, Qual (Neg) 11/11/21 Range/Units 19:57 WBC (4.8-10.8) K/uL RBC (4.7-6.1) M/uL Hgb (14.0-18.0) g/dL Hct (42-52) % RDW Std Deviation (36.4-46.3) fL Neut # (Auto) (1.4-6.5) K/uL Lymph # (Auto) (1.2-3.4) K/uL Immature Gran # (Auto) (0.00-0.02) K/uL ESR (0-20) mm/hr PT (9.0-12.0) Seconds INR (0.9-1.1) APTT (21.0-31.0) Seconds Anion Gap (3-11) BUN (7-18) mg/dl BUN/Creatinine Ratio (10-20) Lactate (0.4-2.0) mmol/L AST (15-37) U/L Alkaline Phosphatase (45-117) U/L Total Creatine Kinase (39-308) U/L C-Reactive Protein (0-0.29) mg/dl Total Protein (6.4-8.2) gm/dl Albumin (3.4-5.0) gm/dl Albumin/Globulin Ratio (0.9-2) Lipase (73-393) U/L Procalcitonin (0-0.5) ng/ml Urine Protein (Negative) Urine Ketones (Negative) Urine Blood (Negative) Urine Bilirubin (Negative) Urine RBC (Auto) (0-4) /hpf U Hyaline Cast (Auto) (0-5) /lpf U Epithel Cells (Auto) (0-5) /lpf Ur Methadone, Qual Pos H (Neg) Diagnostic Findings XR chest 1V portable CLINICAL HISTORY: SEPSIS TECHNIQUE: Single frontal radiograph of the chest was obtained. Comparison: Comparison is made to chest one view 09/28/2021 FINDINGS: Tracheostomy tube is seen. The aorta is tortuous. The remainder of the cardiomediastinal silhouette is unremarkable. There is additional density in the lower right peripheral lung. No evidence of pleural effusion or pneumothorax. IMPRESSION: Right lower lung pleural-based opacity is nonspecific, may represent a focus of atelectasis. Medications Administered ER Medications Given: Cefepime 2000mg IV Vancomycin 1000mg IV NSS 2L bolus ECG Rate (beats per minute): 118 Rhythm: sinus tachycardia Findings: + other (non-specific intraventricular block) Comparison ECG Date: from (Jan 06, 2021) Change: the following changes noted (difficult to assess due to poor baseline) Code Status & VTE Plan Code Status DNR/DNI VTE Prophylaxis Plan VTE Prophylaxis will be ordered: Yes PG Care Time/CCT Total # of Minutes Spent Total Time Spent with Patient: Total time spent is greater than 50% in coordination of care (as documented) at patient's floor/unit and/or counseling patient: Coding Level of Care Code 38478 Initial Inpt Care Lvl 3 Diagnoses Sepsis A41.9 Altered mental status R41.82 Altered mental status type: unspecified Goals of care, counseling/discussion Z71.89 Squamous cell carcinoma of tongue C02.9 Severe protein-calorie malnutrition E43 Tracheostomy dependent Z93.0 Aspiration pneumonia J69.0 (1) Altered mental status Altered mental status type: unspecified Qualified Code(s): R41.82 - Altered mental status, unspecified
[2021-11-11] MEDS ORDERED: PIPERACILL/TAZOBAC CONSULT ACTIVE PRN (23:03)
[2021-11-11] MEDS ORDERED: HYOSCYAMINE SULFATE 0.125 MG TAB PO PRN (23:13)
[2021-11-11] MEDS ORDERED: MELATONIN 3 MG TAB PO PRN (23:13)
[2021-11-11] MEDS ORDERED: MoRPHine SULFATE 5 MG/0.25 ML UDP PO PRN (23:13)
[2021-11-11] MEDS ORDERED: NORTRIPTYLINE HCL 25 MG CAP PO SCH (23:15)
[2021-11-11] MEDS ORDERED: HALOPERIDOL LACTATE 5 MG/ML 1 ML VIAL IM SCH (23:15)
[2021-11-11] MEDS ORDERED: ACETAMINOPHEN SUSP 500 MG/15.6 ML UDP PEG PRN (23:23)
[2021-11-11] MEDS ORDERED: HALOPERIDOL LACTATE 5 MG/ML 1 ML VIAL IM PRN (23:28)
[2021-11-12] MEDS: LORazepam 0.5 MG TAB PO PRN ×2 (00:26→21:34)
[2021-11-12] MEDS: METHADONE HCL 5 MG TAB PO SCH ×3 (00:27→21:33)
[2021-11-12] MEDS: PIPERACILLIN/TAZOBACTAM 3.375 GM in DEXTROSE 5% 100 ML IV SCH ×3 (00:30→16:28)
[2021-11-12] MEDS ORDERED: HALOPERIDOL LACTATE 5 MG/ML 1 ML VIAL IM PRN (01:17)
[2021-11-12] MEDS: LACTATED RINGER'S 1,000 ML IV SCH ×2 (02:26→15:13)
[2021-11-12] MEDS: ENOXAPARIN INJ 60 MG/0.6 ML SYR SQ SCH ×2 (02:28→14:18)
[2021-11-12 06:00] LABS: Albumin Level 1.4 gm/dl (3.4-5.0); BUN Creatinine Ratio 32.8 (10-20); Calcium 8.1 mg/dl (8.5-10.1); Creatinine Clr Calc Pharmacy 49.8 ml/min; Est GFR (African American) 86.9 ml/min; Potassium 3.6 mmol/L (3.5-5.1)
[2021-11-12 06:03] LABS: Albumin Globulin Ratio 0.4 (0.9-2); Globulin 3.4 gm/dl (2.5-4.0); Total Protein 4.8 gm/dl (6.4-8.2)
[2021-11-12 06:28] LABS: Hematocrit (blood only) 36.9 % (42-52); Hemoglobin 12.4 g/dL (14.0-18.0); Mean Corpuscular Hgb Conc 33.6 g/dL (32-36); Mean Corpuscular Volume 95.3 fL (80-100); Mean Platelet Volume 9.5 fL (7.4-10.4); Platelet Count 114 K/uL (130-400); RDW Coefficient of Variation 13.4 % (11.5-14.5); RDW Standard Deviation 46.1 fL (36.4-46.3); Red Blood Count 3.87 M/uL (4.7-6.1); White Blood Count 10.52 K/uL (4.8-10.8)
[2021-11-12 06:35] LABS: Basophils # (auto) 0.01 K/uL (0-0.2); Basophils % (auto) 0.1 %; Echinocytes 1+; Immature Granulocytes # (auto) 0.08 K/uL (0.00-0.02); Immature Granulocytes % (auto) 0.8 %; Lymphocytes # (auto) 0.47 K/uL (1.2-3.4); Lymphocytes % (auto) 4.5 %; Monocytes # (auto) 0.46 K/uL (0.11-0.59); Monocytes % (auto) 4.4 %; Neutrophils % (auto) 90.2 %; Platelet Estimate Decreased (Normal); Toxic Vacuolation 1+
--- NOTE | 2021-11-12 07:47 | CT Scan Report ---
CT OF THE HEAD WITHOUT CONTRAST CLINICAL HISTORY: Sepsis, altered mental status. COMPARISON STUDY: Head CT November 11, 2021 and October 04, 2020. TECHNIQUE: Helical axial images of the head were obtained without IV contrast. Automated exposure con trol was utilized for the study. A dose lowering technique was utilized adhering to the principles o f ALARA. FINDINGS: This exam is moderately compromised by motion artifact. A 9 mm colloid cyst is unchanged. V entricular system is stable. No evidence for hydrocephalus. White matter hypodensity suggests small v essel disease. Note is made of hypodensity with loss of mancini-white differentiation within the left fr ontal and temporal lobes. This may reflect an acute infarct. There is also a subtle linear hyperdensi ty within the left sylvian fissure shown best on axial image 16 of 32. Moderate mucosal thickening of the right maxillary sinus with air-fluid level is noted. Right mastoid air cells are partially opaci fied. No acute calvarial fracture is identified. IMPRESSION: 1. Hypodensity with loss of mancini-white differentiation within the left frontal and temporal lobes. Th is favors an acute infarct. MRI could be obtained for confirmation. Subtle linear hyperdensity within the left sylvian fissure favors thrombus within a sylvian branch which would account for the acute i nfarct. Discussed with Dr. Walton at time of dictation. 2. 9 mm colloid cysts. No evidence for hydrocephalus. ACT 112: Negative or not required by law. Electronically signed by: Rogers Crenshaw M.D. 11/12/2021 7:45 AM
--- NOTE | 2021-11-12 08:03 | CT Scan Report ---
CT OF THE NECK WITH IV CONTRAST CLINICAL HISTORY: throat cancer, sepsis ?abscess COMPARISON STUDY: CT of the neck October 06, 2020. PET/CT November 04, 2020. Treatment planning CT January 19, 2021. TECHNIQUE: Following IV administration of 117 mL of Optiray, helical axial images of the neck were o btained. Sagittal and coronal reconstructions were viewed. Automated exposure control was utilized for the study. A dose lowering technique was utilized adhering to the principles of ALARA. CT DOSE: 2877.78 mGy.cm FINDINGS: Extensive postoperative findings within the neck are noted consistent with left neck disse ction and flap formation. Note is made of a partially visualized upper anterior neck mass along the u nder aspect of the mandible that measures 4.9 x 2.9 cm. This represents a significant change since pr ior treatment planning CT. Associated erosion of the hyoid. Erosion of portions of the mandible is al so noted, partially imaged on this examination. There is an adjacent cavity, which measures at least 4.4 cm, which communicates with the floor of the mouth. Cavity predominantly contains gas however a s mall amount of fluid also noted within the cavity. Sterility cannot be assessed by CT. There is no dr noy fluid collection. A 4.5 x 3.3 x 3.2 cm heterogeneously enhancing irregular left level 2 mass is new since prior treatment planning CT. This encases branches of the left external carotid artery. Tracheostomy tube is in place. There is fluid within the right piriform sinus. There is moderate plaq ue of the proximal bilateral internal carotid arteries. This does not result in significant stenosis. There is tortuosity and kinking of the mid left cervical internal carotid artery with moderate narro wing. Chest CT will be reported separately. IMPRESSION: 1. Extensive postoperative findings within the neck, as described above. Findings consistent with sig nificant progression of recurrent malignancy with a partially visualized anterior upper neck necrotic mass that measures at least 4.9 x 2.9 cm. Adjacent fluid and gas containing collection communicates with the floor the mouth. Sterility cannot be assessed by CT. Associated erosion of the hyoid and man dible, partially imaged on this exam. 2. 4.5 x 3.3 x 3.2 cm irregular left level 2 mass which encases branches of the left external carotid artery. This is consistent with recurrent malignancy. 3. Moderate plaque of the proximal bilateral internal carotid arteries which does not result in signi ficant stenosis. Tortuosity and kinking of the mid left cervical internal carotid artery with moderat e narrowing. ACT 112: Negative or not required by law. Electronically signed by: Rogers Crenshaw M.D. 11/12/2021 8:01 AM
--- NOTE | 2021-11-12 08:15 | CT Scan Report ---
CT ANGIOGRAPHY OF THE CHEST, PULMONARY EMBOLUS PROTOCOL CLINICAL HISTORY: Altered mental status. Head and neck cancer. COMPARISON STUDY: PET/CT November 04, 2020. TECHNIQUE: Following IV administration of 117 mL of Optiray, helical axial images of the chest were o btained utilizing the pulmonary embolus protocol. Maximal intensity projections and sagittal and cor onal reformats were viewed on an independent 3D workstation. IV contrast was administered without co mplication. Automated exposure control was utilized for the study. A dose lowering technique was ut ilized adhering to the principles of ALARA. FINDINGS: Tracheostomy tube is in place. There is no thoracic lymphadenopathy. There is no pericardi al effusion. Note is made of several segmental and subsegmental pulmonary emboli, including emboli wi thin the left lower, right upper and right lower lobes. Note is made of a small right pleural effusio n. This is partially loculated. Extensive right lower lobe consolidation is noted. There is also mild right middle lobe consolidation. There may be several areas of cavitation. Mild alveolar opacities w ithin the left lower lobe are noted. Extensive secretions within the right mainstem bronchus and righ t lower lobe segmental bronchi are noted. There is no pneumothorax. Multiple healing left-sided rib f ractures are noted. There are several old thoracic and upper lumbar spine compression deformities. Ga strostomy tube is in place. Abdomen and pelvis will be reported separately. IMPRESSION: 1. Several segmental and subsegmental pulmonary emboli, as described above. 2. Extensive right lower lobe consolidation and right middle lobe airspace opacities. The findings fa vor pneumonia or aspiration pneumonitis. Several possible areas of developing cavitation. Extensive s ecretions within the right-sided airways. 3. Small, partially loculated right pleural effusion. ACT 112: Negative or not required by law. Electronically signed by: Rogers Crenshaw M.D. 11/12/2021 8:13 AM
--- NOTE | 2021-11-12 08:21 | CT Scan Report ---
CT OF THE ABDOMEN AND PELVIS WITH CONTRAST CLINICAL HISTORY: Sepsis. COMPARISON STUDY: PET/CT November 04, 2020. TECHNIQUE: Following IV administration of 117 mL of Optiray, axial images of the abdomen and pelvis w ere obtained from the lung bases to the proximal femurs. Images were reviewed in the axial, sagittal, and coronal planes. IV contrast was administered without complication. Automated exposure control w as utilized for the study. A dose lowering technique was utilized adhering to the principles of OSWALDO Gaston. FINDINGS: Please note that the chest CT will be reported separately. Extensive consolidation within t he right lower lobe is noted as well as right middle lobe airspace opacities. A small, loculated righ t pleural effusion is noted. This may contain gas. This raises the possibility of a developing empyem a. Multiple healing left-sided rib fractures are noted. Gastrostomy tube is in place. No pneumatosis, free air or portal venous gas is present. The liver, spleen, adrenal glands and pancreas are unremar kable. There are several suspected bilateral renal cysts although a few lesions are too small to elida acterize. There is no evidence for a bowel obstruction. Garces balloon is in place. Bladder wall thick ening is noted. Moderate amount stool within the rectum is noted. There is no hydronephrosis. No acut e fracture or suspicious lesion is identified within the visualized skeletal structures. There are se veral old lumbar spine compression fractures. IMPRESSION: 1. No bowel obstruction. No bowel wall thickening. Moderate amount stool within the rectum. 2. Nonspecific bladder wall thickening. This could be correlated with urinalysis. 3. Extensive right lower lobe consolidation. Right middle lobe airspace opacity. Small, loculated rig ht pleural effusion which contains gas. This could reflect a developing small empyema. ACT 112: Negative or not required by law. Electronically signed by: Rogers Crenshaw M.D. 11/12/2021 8:20 AM
[2021-11-12] MEDS: ALBUT/IPRATROP 3MG/0.5MG NEB 3 ML VIAL INH SCH ×4 (08:24→19:44)
[2021-11-12] MEDS ORDERED: GABAPENTIN 300 MG CAP PO SCH (09:00)
[2021-11-12] MEDS ORDERED: [UNRECOGNIZED DRUG - OTHER] PO SCH (09:00)
[2021-11-12] MEDS: LANSOPRAZOLE 30 MG SOLTAB PEG SCH (09:23)
[2021-11-12] MEDS: dexAMETHasone 4 MG TAB PO SCH (09:24)
[2021-11-12] MEDS ORDERED: GABAPENTIN 250 MG/5 ML 470 ML BTL PEG ONE (09:45)
[2021-11-12] MEDS: Magic Mouthwash 240mL PO SCH ×3 (10:15→18:09)
--- NOTE | 2021-11-12 10:21 | Electrocardiogram Report ---
Test Reason : Blood Pressure : / mmHG Vent. Rate : 118 BPM Atrial Rate : 118 BPM P-R Int : 126 ms QRS Dur : 130 ms QT Int : 388 ms P-R-T Axes : 000 -75 044 degrees QTc Int : 543 ms Poor data quality, interpretation may be adversely affected Sinus tachycardia Left axis deviation Non-specific intra-ventricular conduction block Inferior infarct (cited on or before 02-APR-2018) Abnormal ECG When compared with ECG of 06-JAN-2021 08:55, Significant changes have occurred Confirmed by Srinivasan Ramirez ([id number]) on 11/12/2021 10:21:16 AM Referred By: REFERRED SELF Confirmed By:Srinivasan Ramirez
[2021-11-12] MEDS: FIBERSOURCE HN 1.2 CAL 1000 ML BAG GT SCH (12:37)
[2021-11-12] MEDS: TUBE FEEDING WATER FLUSH GT SCH ×2 (12:38→18:08)
[2021-11-12] MEDS: VANCOMYCIN HCL 1,000 MG in SODIUM CHLORIDE 0.9% 250 ML IV SCH (12:38)
[2021-11-12] MEDS: GABAPENTIN 250 MG/5 ML 470 ML BTL PEG SCH ×2 (14:19→22:08)
--- NOTE | 2021-11-12 14:56 | Pharmacy Report ---
Pharmacy Abx Dose Short Note - Date of Service November 12, 2021 - Assessment & Plan Assessment 66 year old M w/ hx of metastatic squamous cell carcinoma currently on hospice, with tracheostomy. Blood cultures 3/4 growing MSSA (per PCR results), presumed source is RLL pneumonia, sputum pending. Currently being treated with vancomycin/zosyn. Has had nasal swabs that were MRSA positive in the past. Discussed possible de-escalation given MSSA result, will continue vancomycin/zosyn for now, ?empyema development and sputum pending Plan Vancomycin AUC/PAIGE is the preferred PK/PD target for vancomycin * AUC guided dosing is effective and associated with decreased risk of nephrotoxicity compared to traditional trough targets * Maintenance dose of 1 gm q24H is predicted to achieve target AUC/PAIGE of 400- 600 mg/L.hr * Will order trough if vancomycin continues > 48 hours Pharmacy will continue to follow and will adjust dose/frequency as necessary. Thank you.
[2021-11-12] MEDS ORDERED: LACTATED RINGER'S 1,000 ML IV ONE (17:17)
--- NOTE | 2021-11-12 17:19 | Hospitalist Progress Note ---
Date of Service November 12, 2021 Assessment & Plan (1) Sepsis: Plan: with septic shock Secondary to MSSA bacteremia/septicemia, with possible septic pulm emboli Lactate 3.4 and no change after 2 L IVFs initialy With large vegetation seen on TV on ECHO and +BCxs Remains hypotensive but did not receive stress dose steroids Son ok with vasopressors through PIV for now if needed, but wants to talk to his family before deciding about central venous access -start IV hydrocortisone 100mg IV q8h for stress dose steropids -bolus 1000mL LR now -continue Zosyn and Vanco -MRSA swab positive but MSSA in blood cultures -with possible empyema and asp PNA seen on CT chest-continue abx but ultimately if truly has empyema, would need CT surgery-follow CXR -follow BCxs from admission and repeat BCxs today -follow CBC, CMP, Procal in AM (2) Aspiration pneumonia: Plan: as above (3) Septicemia: Plan: as above (4) Endocarditis: Plan: as above, TV vegetation continue IV abx for now, but future plans to depend on how aggressive level of care should be as per family given hospice enrollment (5) Altered mental status: Plan: Acute encephalopathy secondary to septic shock and septicemia Also with acute CVA seen on CT Alcohol level negative treating septic shock as above (6) 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 - reason for tracheostomy with large neck mass eroding into hyoid and mandible (7) Pulmonary emboli: Plan: as above, may be septic emboli from TV veg continue Lovenox full dose fo rnow (8) CVA (cerebral vascular accident): Plan: noted on CT head to have acute CVA in left frontal and temporal regions check MRI brain for confirmation once more HD stable start ASA 81mg daily now on therapeutic Lovenox for PEs (9) Underweight: Plan: BMI 13, secondary to met CA (10) Acute respiratory failure with hypoxia: Plan: secondary to PNA continue trach collar to keep POx> 90-92% (11) Tracheostomy dependent: Plan: Routine trach care (12) Severe protein-calorie malnutrition: Plan: Consult dietary continue TFs through PEG (13) Goals of care, counseling/discussion: Plan: Discussed with [facility] and patient has refused to have any written goals. Only recorded relative is his son Shine. On discussion with [facility]y, patient is DNR/DNI but ok with active care for the infection and vasopressors at least through PIV for overnight if needed Ok to continue to use his feeding tube. Plan: VTE Prophylaxis - Lovenox Diet - NPO, consult dietary to assess feeding tube requirements Disposition - continued stay on PCU, [facility] hospice as per CM notes DNR/DNI Admission and Anticipated Discharge Date Admission Date: November 11, 2021 Subjective Pt unresponsive but only opens his eyes to loud verbal stimulus. He only keeps eyes open briefly and then falls back asleep. Nurse reports his BP has been low all day but this was not reported to me nor was in the computer since BP at 0700. I discussed his care with his son on the phone who is ok with vasopressors at least for now overnight if needed through peripheral IV but wants to wait until after [place] to talk to his family about how aggressive care he wants his father to have. For now, he is ok with abx for the bacteremia and vasopressors o vernight. Review of Systems Review of Systems: Unobtainable due to cognitive status and Unobtainable due to reduced consciousness Physical Exam Constitutional: + ill appearing, + cachectic, + lethargic and + underweight Eyes: + anicteric sclerae Neck: + abnormal visual inspection (trachesomty tube in place) Respiratory: no cough and not tachypneic Auscultation: + rhonchi (bilat); no wheezes Cardiovascular: RRR, no murmur, no edema Chest (Breasts): Chest: normal inspection of chest Gastrointestinal (Abdomen): Inspection/Auscultation: + abdomen abnormal to inspection (PEG tube in place) scaphoid abdomen, NT ND Musculoskeletal: Extremities: extremities normal to inspection; no cyanosis and no clubbing Skin: + dry skin (sloughing skin on feet); no erythema Neurologic: + obtunded not able to assess strength or sensation, face is s ymmetric, no facial droop Genitourinary: Garces in palce with dark yellow urine Lymphatic: no lymphedema Results & Data Results & Data ([facility]) Vital Signs (Past 12 Hours) Vital Signs Pulse Pulse Pulse Resp BP BP Pulse Ox 11/12/21 16:00 95 H 19 73/50 L 94 11/12/21 15:46 96 H 22 92 11/12/21 12:00 97 H 23 74/55 L 90 11/12/21 11:15 95 H 26 H 90 11/12/21 10:00 88 20 91 11/12/21 09:00 91 H 25 H 90 11/12/21 08:27 87 24 92 11/12/21 08:00 88 25 H 91 11/12/21 07:00 86 86 23 84/51 L 94 11/12/21 06:00 92 H 18 95 11/12/21 05:28 86 22 94 11/12/21 05:27 11/12/21 05:26 99/55 L Pulse Ox 11/12/21 16:00 11/12/21 15:46 11/12/21 12:00 11/12/21 11:15 11/12/21 10:00 11/12/21 09:00 11/12/21 08:27 11/12/21 08:00 11/12/21 07:00 11/12/21 06:00 11/12/21 05:28 11/12/21 05:27 94 11/12/21 05:26 Laboratory Results 11/12/21 11/12/21 11/11/21 Range/Units 05:13 05:13 20:00 WBC 10.52 D (4.8-10.8) K/uL RBC 3.87 L (4.7-6.1) M/uL Hgb 12.4 L (14.0-18.0) g/dL Hct 36.9 L (42-52) % MCV 95.3 (80-100) fL MCH 32.0 (25-34) pg MCHC 33.6 (32-36) g/dL RDW Std Deviation 46.1 (36.4-46.3) fL RDW Coeff of Martha 13.4 (11.5-14.5) % Plt Count 114 L D (130-400) K/uL MPV 9.5 (7.4-10.4) fL Immature Gran % (Auto) 0.8 % Neut % (Auto) 90.2 % Lymph % (Auto) 4.5 % Anderson % (Auto) 4.4 % Eos % (Auto) 0.0 % Baso % (Auto) 0.1 % Neut # (Auto) 9.50 H (1.4-6.5) K/uL Lymph # (Auto) 0.47 L (1.2-3.4) K/uL Anderson # (Auto) 0.46 (0.11-0.59) K/uL Eos # (Auto) 0.00 (0-0.5) K/uL Baso # (Auto) 0.01 (0-0.2) K/uL Immature Gran # (Auto) 0.08 H (0.00-0.02) K/uL Toxic Vacuolation 1+ Platelet Estimate Decreased L (Normal) Echinocytes 1+ ESR (0-20) mm/hr Sodium 140 (136-145) mmol/L Potassium 3.6 (3.5-5.1) mmol/L Chloride 105 (98-107) mmol/L Carbon Dioxide 25 (21-32) mmol/L Anion Gap 10.0 (3-11) BUN 34 H (7-18) mg/dl Creatinine 1.04 (0.6-1.4) mg/dl Est Cr Clr Drug Dosing 49.8 ml/min Est GFR ( Amer) 86.9 ml/min Est GFR (Non-Af Amer) 75.0 ml/min BUN/Creatinine Ratio 32.8 H (10-20) Glucose 90 (70-99) mg/dl Lactate (0.4-2.0) mmol/L Calcium 8.1 L (8.5-10.1) mg/dl Total Bilirubin 1.0 (0.2-1) mg/dl AST 92 H (15-37) U/L ALT 35 (12-78) Alkaline Phosphatase 96 (45-117) U/L Ammonia (11-32) umol/L Total Creatine Kinase (39-308) U/L C-Reactive Protein (0-0.29) mg/dl Total Protein 4.8 L D (6.4-8.2) gm/dl Albumin 1.4 L (3.4-5.0) gm/dl Globulin 3.4 (2.5-4.0) gm/dl Albumin/Globulin Ratio 0.4 L (0.9-2) Lipase (73-393) U/L Procalcitonin (0-0.5) ng/ml Urine Color Urine Appearance (Clear) Urine pH (4.5-7.5) Ur Specific [place] (1.000-1.030) Urine Protein (Negative) Urine Glucose (UA) (Negative) Urine Ketones (Negative) Urine Blood (Negative) Urine Nitrite (Negative) Urine Bilirubin (Negative) Urine Urobilinogen (Negative) Ur Leukocyte Esterase (Negative) Urine WBC (Auto) (0-5) /hpf Urine RBC (Auto) (0-4) /hpf U Hyaline Cast (Auto) (0-5) /lpf U Epithel Cells (Auto) (0-5) /lpf Urine Bacteria (Auto) (Negative) Urine Opiates Screen (Neg) Ur Methadone, Qual (Neg) U Methadone Metabolites Ur Methadone Confirm Urine Barbiturates (Neg) Ur Phencyclidine (PCP) (Neg) U Amphetamin/Meth Scrn (Neg) MDMA (Ecstasy) Screen (Neg) U Benzodiazepines Scrn (Neg) Ur Cocaine Metabolite (Neg) U Marijuana (THC) Screen (Neg) Drug Screen Comment Ethyl Alcohol mg/dL < 3.0 (0-3) mg/dl SARS-CoV-2 (PCR) (Negative) Influenza Type A (PCR) (Neg) Influenza Type B (PCR) (Neg) RSV (RT-PCR) (Neg) Bld Cult Staph aureus PCR (Negative) Blood Culture MRSA PCR (Negative) 11/11/21 11/11/21 11/11/21 Range/Units 20:00 19:57 19:57 WBC (4.8-10.8) K/uL RBC (4.7-6.1) M/uL Hgb (14.0-18.0) g/dL Hct (42-52) % MCV (80-100) fL MCH (25-34) pg MCHC (32-36) g/dL RDW Std Deviation (36.4-46.3) fL RDW Coeff of Martha (11.5-14.5) % Plt Count (130-400) K/uL MPV (7.4-10.4) fL Immature Gran % (Auto) % Neut % (Auto) % Lymph % (Auto) % Anderson % (Auto) % Eos % (Auto) % Baso % (Auto) % Neut # (Auto) (1.4-6.5) K/uL Lymph # (Auto) (1.2-3.4) K/uL Anderson # (Auto) (0.11-0.59) K/uL Eos # (Auto) (0-0.5) K/uL Baso # (Auto) (0-0.2) K/uL Immature Gran # (Auto) (0.00-0.02) K/uL Toxic Vacuolation Platelet Estimate (Normal) Echinocytes ESR (0-20) mm/hr Sodium (136-145) mmol/L Potassium (3.5-5.1) mmol/L Chloride (98-107) mmol/L Carbon Dioxide (21-32) mmol/L Anion Gap (3-11) BUN (7-18) mg/dl Creatinine (0.6-1.4) mg/dl Est Cr Clr Drug Dosing ml/min Est GFR ( Amer) ml/min Est GFR (Non-Af Amer) ml/min BUN/Creatinine Ratio (10-20) Glucose (70-99) mg/dl Lactate (0.4-2.0) mmol/L Calcium (8.5-10.1) mg/dl Total Bilirubin (0.2-1) mg/dl AST (15-37) U/L ALT (12-78) Alkaline Phosphatase (45-117) U/L Ammonia 12.9 (11-32) umol/L Total Creatine Kinase (39-308) U/L C-Reactive Protein (0-0.29) mg/dl Total Protein (6.4-8.2) gm/dl Albumin (3.4-5.0) gm/dl Globulin (2.5-4.0) gm/dl Albumin/Globulin Ratio (0.9-2) Lipase (73-393) U/L Procalcitonin (0-0.5) ng/ml Urine Color Urine Appearance (Clear) Urine pH (4.5-7.5) Ur Specific [place] (1.000-1.030) Urine Protein (Negative) Urine Glucose (UA) (Negative) Urine Ketones (Negative) Urine Blood (Negative) Urine Nitrite (Negative) Urine Bilirubin (Negative) Urine Urobilinogen (Negative) Ur Leukocyte Esterase (Negative) Urine WBC (Auto) (0-5) /hpf Urine RBC (Auto) (0-4) /hpf U Hyaline Cast (Auto) (0-5) /lpf U Epithel Cells (Auto) (0-5) /lpf Urine Bacteria (Auto) (Negative) Urine Opiates Screen Neg (Neg) Ur Methadone, Qual Pos H (Neg) U Methadone Metabolites Pending Ur Methadone Confirm Pending Urine Barbiturates Neg (Neg) Ur Phencyclidine (PCP) Neg (Neg) U Amphetamin/Meth Scrn Neg (Neg) MDMA (Ecstasy) Screen Neg (Neg) U Benzodiazepines Scrn Neg (Neg) Ur Cocaine Metabolite Neg (Neg) U Marijuana (THC) Screen Neg (Neg) Drug Screen Comment Pending Ethyl Alcohol mg/dL (0-3) mg/dl SARS-CoV-2 (PCR) (Negative) Influenza Type A (PCR) (Neg) Influenza Type B (PCR) (Neg) RSV (RT-PCR) (Neg) Bld Cult Staph aureus PCR (Negative) Blood Culture MRSA PCR (Negative) 11/11/21 11/11/21 11/11/21 Range/Units 19:57 18:27 16:48 WBC (4.8-10.8) K/uL RBC (4.7-6.1) M/uL Hgb (14.0-18.0) g/dL Hct (42-52) % MCV (80-100) fL MCH (25-34) pg MCHC (32-36) g/dL RDW Std Deviation (36.4-46.3) fL RDW Coeff of Martha (11.5-14.5) % Plt Count (130-400) K/uL MPV (7.4-10.4) fL Immature Gran % (Auto) % Neut % (Auto) % Lymph % (Auto) % Anderson % (Auto) % Eos % (Auto) % Baso % (Auto) % Neut # (Auto) (1.4-6.5) K/uL Lymph # (Auto) (1.2-3.4) K/uL Anderson # (Auto) (0.11-0.59) K/uL Eos # (Auto) (0-0.5) K/uL Baso # (Auto) (0-0.2) K/uL Immature Gran # (Auto) (0.00-0.02) K/uL Toxic Vacuolation Platelet Estimate (Normal) Echinocytes ESR (0-20) mm/hr Sodium (136-145) mmol/L Potassium (3.5-5.1) mmol/L Chloride (98-107) mmol/L Carbon Dioxide (21-32) mmol/L Anion Gap (3-11) BUN (7-18) mg/dl Creatinine (0.6-1.4) mg/dl Est Cr Clr Drug Dosing ml/min Est GFR ( Amer) ml/min Est GFR (Non-Af Amer) ml/min BUN/Creatinine Ratio (10-20) Glucose (70-99) mg/dl Lactate 3.4 H* (0.4-2.0) mmol/L Calcium (8.5-10.1) mg/dl Total Bilirubin (0.2-1) mg/dl AST (15-37) U/L ALT (12-78) Alkaline Phosphatase (45-117) U/L Ammonia (11-32) umol/L Total Creatine Kinase (39-308) U/L C-Reactive Protein (0-0.29) mg/dl Total Protein (6.4-8.2) gm/dl Albumin (3.4-5.0) gm/dl Globulin (2.5-4.0) gm/dl Albumin/Globulin Ratio (0.9-2) Lipase (73-393) U/L Procalcitonin (0-0.5) ng/ml Urine Color Dark Yellow Urine Appearance Clear (Clear) Urine pH 5.0 (4.5-7.5) Ur Specific [place] 1.022 (1.000-1.030) Urine Protein 1+ H (Negative) Urine Glucose (UA) Negative (Negative) Urine Ketones Trace H (Negative) Urine Blood 2+ H (Negative) Urine Nitrite Negative (Negative) Urine Bilirubin 1+ H (Negative) Urine Urobilinogen Negative (Negative) Ur Leukocyte Esterase Negative (Negative) Urine WBC (Auto) 1-5 (0-5) /hpf Urine RBC (Auto) >30 H (0-4) /hpf U Hyaline Cast (Auto) >30 H (0-5) /lpf U Epithel Cells (Auto) 20-30 H (0-5) /lpf Urine Bacteria (Auto) Negative (Negative) Urine Opiates Screen (Neg) Ur Methadone, Qual (Neg) U Methadone Metabolites Ur Methadone Confirm Urine Barbiturates (Neg) Ur Phencyclidine (PCP) (Neg) U Amphetamin/Meth Scrn (Neg) MDMA (Ecstasy) Screen (Neg) U Benzodiazepines Scrn (Neg) Ur Cocaine Metabolite (Neg) U Marijuana (THC) Screen (Neg) Drug Screen Comment Ethyl Alcohol mg/dL (0-3) mg/dl SARS-CoV-2 (PCR) NEGATIVE (Negative) Influenza Type A (PCR) Negative (Neg) Influenza Type B (PCR) Negative (Neg) RSV (RT-PCR) Negative (Neg) Bld Cult Staph aureus PCR (Negative) Blood Culture MRSA PCR (Negative) 11/11/21 11/11/21 11/11/21 Range/Units 16:29 16:11 16:11 WBC (4.8-10.8) K/uL RBC (4.7-6.1) M/uL Hgb (14.0-18.0) g/dL Hct (42-52) % MCV (80-100) fL MCH (25-34) pg MCHC (32-36) g/dL RDW Std Deviation (36.4-46.3) fL RDW Coeff of Martha (11.5-14.5) % Plt Count (130-400) K/uL MPV (7.4-10.4) fL Immature Gran % (Auto) % Neut % (Auto) % Lymph % (Auto) % Anderson % (Auto) % Eos % (Auto) % Baso % (Auto) % Neut # (Auto) (1.4-6.5) K/uL Lymph # (Auto) (1.2-3.4) K/uL Anderson # (Auto) (0.11-0.59) K/uL Eos # (Auto) (0-0.5) K/uL Baso # (Auto) (0-0.2) K/uL Immature Gran # (Auto) (0.00-0.02) K/uL Toxic Vacuolation Platelet Estimate (Normal) Echinocytes ESR (0-20) mm/hr Sodium (136-145) mmol/L Potassium (3.5-5.1) mmol/L Chloride (98-107) mmol/L Carbon Dioxide (21-32) mmol/L Anion Gap (3-11) BUN (7-18) mg/dl Creatinine (0.6-1.4) mg/dl Est Cr Clr Drug Dosing ml/min Est GFR ( Amer) ml/min Est GFR (Non-Af Amer) ml/min BUN/Creatinine Ratio (10-20) Glucose (70-99) mg/dl Lactate (0.4-2.0) mmol/L Calcium (8.5-10.1) mg/dl Total Bilirubin (0.2-1) mg/dl AST (15-37) U/L ALT (12-78) Alkaline Phosphatase (45-117) U/L Ammonia (11-32) umol/L Total Creatine Kinase 935 H (39-308) U/L C-Reactive Protein 36.50 H (0-0.29) mg/dl Total Protein (6.4-8.2) gm/dl Albumin (3.4-5.0) gm/dl Globulin (2.5-4.0) gm/dl Albumin/Globulin Ratio (0.9-2) Lipase 26 L (73-393) U/L Procalcitonin 4.15 H (0-0.5) ng/ml Urine Color Urine Appearance (Clear) Urine pH (4.5-7.5) Ur Specific [place] (1.000-1.030) Urine Protein (Negative) Urine Glucose (UA) (Negative) Urine Ketones (Negative) Urine Blood (Negative) Urine Nitrite (Negative) Urine Bilirubin (Negative) Urine Urobilinogen (Negative) Ur Leukocyte Esterase (Negative) Urine WBC (Auto) (0-5) /hpf Urine RBC (Auto) (0-4) /hpf U Hyaline Cast (Auto) (0-5) /lpf U Epithel Cells (Auto) (0-5) /lpf Urine Bacteria (Auto) (Negative) Urine Opiates Screen (Neg) Ur Methadone, Qual (Neg) U Methadone Metabolites Ur Methadone Confirm Urine Barbiturates (Neg) Ur Phencyclidine (PCP) (Neg) U Amphetamin/Meth Scrn (Neg) MDMA (Ecstasy) Screen (Neg) U Benzodiazepines Scrn (Neg) Ur Cocaine Metabolite (Neg) U Marijuana (THC) Screen (Neg) Drug Screen Comment Ethyl Alcohol mg/dL (0-3) mg/dl SARS-CoV-2 (PCR) (Negative) Influenza Type A (PCR) (Neg) Influenza Type B (PCR) (Neg) RSV (RT-PCR) (Neg) Bld Cult Staph aureus PCR Positive A (Negative) Blood Culture MRSA PCR Negative (Negative) 11/11/21 Range/Units 16:11 WBC (4.8-10.8) K/uL RBC (4.7-6.1) M/uL Hgb (14.0-18.0) g/dL Hct (42-52) % MCV (80-100) fL MCH (25-34) pg MCHC (32-36) g/dL RDW Std Deviation (36.4-46.3) fL RDW Coeff of Martha (11.5-14.5) % Plt Count (130-400) K/uL MPV (7.4-10.4) fL Immature Gran % (Auto) % Neut % (Auto) % Lymph % (Auto) % Anderson % (Auto) % Eos % (Auto) % Baso % (Auto) % Neut # (Auto) (1.4-6.5) K/uL Lymph # (Auto) (1.2-3.4) K/uL Anderson # (Auto) (0.11-0.59) K/uL Eos # (Auto) (0-0.5) K/uL Baso # (Auto) (0-0.2) K/uL Immature Gran # (Auto) (0.00-0.02) K/uL Toxic Vacuolation Platelet Estimate (Normal) Echinocytes ESR 65 H (0-20) mm/hr Sodium (136-145) mmol/L Potassium (3.5-5.1) mmol/L Chloride (98-107) mmol/L Carbon Dioxide (21-32) mmol/L Anion Gap (3-11) BUN (7-18) mg/dl Creatinine (0.6-1.4) mg/dl Est Cr Clr Drug Dosing ml/min Est GFR ( Amer) ml/min Est GFR (Non-Af Amer) ml/min BUN/Creatinine Ratio (10-20) Glucose (70-99) mg/dl Lactate (0.4-2.0) mmol/L Calcium (8.5-10.1) mg/dl Total Bilirubin (0.2-1) mg/dl AST (15-37) U/L ALT (12-78) Alkaline Phosphatase (45-117) U/L Ammonia (11-32) umol/L Total Creatine Kinase (39-308) U/L C-Reactive Protein (0-0.29) mg/dl Total Protein (6.4-8.2) gm/dl Albumin (3.4-5.0) gm/dl Globulin (2.5-4.0) gm/dl Albumin/Globulin Ratio (0.9-2) Lipase (73-393) U/L Procalcitonin (0-0.5) ng/ml Urine Color Urine Appearance (Clear) Urine pH (4.5-7.5) Ur Specific [place] (1.000-1.030) Urine Protein (Negative) Urine Glucose (UA) (Negative) Urine Ketones (Negative) Urine Blood (Negative) Urine Nitrite (Negative) Urine Bilirubin (Negative) Urine Urobilinogen (Negative) Ur Leukocyte Esterase (Negative) Urine WBC (Auto) (0-5) /hpf Urine RBC (Auto) (0-4) /hpf U Hyaline Cast (Auto) (0-5) /lpf U Epithel Cells (Auto) (0-5) /lpf Urine Bacteria (Auto) (Negative) Urine Opiates Screen (Neg) Ur Methadone, Qual (Neg) U Methadone Metabolites Ur Methadone Confirm Urine Barbiturates (Neg) Ur Phencyclidine (PCP) (Neg) U Amphetamin/Meth Scrn (Neg) MDMA (Ecstasy) Screen (Neg) U Benzodiazepines Scrn (Neg) Ur Cocaine Metabolite (Neg) U Marijuana (THC) Screen (Neg) Drug Screen Comment Ethyl Alcohol mg/dL (0-3) mg/dl SARS-CoV-2 (PCR) (Negative) Influenza Type A (PCR) (Neg) Influenza Type B (PCR) (Neg) RSV (RT-PCR) (Neg) Bld Cult Staph aureus PCR (Negative) Blood Culture MRSA PCR (Negative) PG Care Time/CCT Total # of Minutes Spent Total Time Spent with Patient: Total time spent is greater than 50% in coordination of care (as documented) at patient's floor/unit and/or counseling patient: Coding Level of Care Code 94783 Subseq Hosp Care Lvl 3 Diagnoses Goals of care, counseling/discussion Z71.89 Sepsis A41.9 Aspiration pneumonia J69.0 Altered mental status R41.82 Altered mental status type: unspecified Squamous cell carcinoma of tongue C02.9 Severe protein-calorie malnutrition E43 Tracheostomy dependent Z93.0 Septicemia A41.9 Pulmonary emboli I26.99 Endocarditis I38 Underweight R63.6 CVA (cerebral vascular accident) I63.9 Acute respiratory failure with hypoxia J96.01 (1) Altered mental status Altered mental status type: unspecified Qualified Code(s): R41.82 - Altered mental status, unspecified
[2021-11-12] MEDS: HYDROCORTISONE SOD 100 MG in SYRINGE 0 ML IV SCH ×2 (18:08→21:54)
[2021-11-12] MEDS: ASPIRIN 81 MG CHEW PEG SCH (18:32)
[2021-11-12] MEDS ORDERED: LORazepam 0.5 MG/1 ML VIAL IV PRN (21:58)
[2021-11-13] MEDS: TUBE FEEDING WATER FLUSH GT SCH ×6 (01:07→23:55)
[2021-11-13] MEDS: PIPERACILLIN/TAZOBACTAM 3.375 GM in DEXTROSE 5% 100 ML IV SCH ×3 (01:55→16:18)
[2021-11-13] MEDS: ENOXAPARIN INJ 60 MG/0.6 ML SYR SQ SCH (03:28)
[2021-11-13] MEDS: LACTATED RINGER'S 1,000 ML IV SCH ×2 (03:43→10:15)
[2021-11-13] MEDS: HYDROCORTISONE SOD 100 MG in SYRINGE 0 ML IV SCH ×4 (06:01→23:09)
[2021-11-13 07:22] LABS: Echinocytes 1+; Hemoglobin 10.6 g/dL (14.0-18.0); Immature Granulocytes # (auto) 0.11 K/uL (0.00-0.02); Immature Granulocytes % (auto) 0.8 %; Lymphocytes # (auto) 0.52 K/uL (1.2-3.4); Lymphocytes % (auto) 3.6 %; Mean Corpuscular Hemoglobin 31.9 pg (25-34); Mean Corpuscular Hgb Conc 33.1 g/dL (32-36); Mean Corpuscular Volume 96.4 fL (80-100); Mean Platelet Volume 10.9 fL (7.4-10.4); Monocytes # (auto) 0.72 K/uL (0.11-0.59); Monocytes % (auto) 4.9 %; Neutrophils # (auto) 13.27 K/uL (1.4-6.5); Neutrophils % (auto) 90.7 %; Platelet Count 45 K/uL (130-400); Platelet Estimate Decreased (Normal); RDW Coefficient of Variation 13.6 % (11.5-14.5); Red Blood Count 3.32 M/uL (4.7-6.1); Target Cells 1+; White Blood Count 14.62 K/uL (4.8-10.8)
[2021-11-13 07:26] LABS: INR 1.2 (0.9-1.1); Prothrombin Time 11.9 Seconds (9.0-12.0)
[2021-11-13 07:29] LABS: Albumin Level 1.2 gm/dl (3.4-5.0); BUN Creatinine Ratio 33.4 (10-20); Calcium 8.2 mg/dl (8.5-10.1); Creatinine Clr Calc Pharmacy 43.1 ml/min; Est GFR (African American) 80.3 ml/min; Est GFR (Non-African American) 69.3 ml/min; Potassium 3.6 mmol/L (3.5-5.1)
[2021-11-13 07:37] LABS: Albumin Globulin Ratio 0.4 (0.9-2); Bilirubin,Total 0.6 mg/dl (0.2-1); Globulin 3.4 gm/dl (2.5-4.0); Total Protein 4.6 gm/dl (6.4-8.2)
[2021-11-13] MEDS: ALBUT/IPRATROP 3MG/0.5MG NEB 3 ML VIAL INH SCH ×4 (07:39→19:47)
--- NOTE | 2021-11-13 09:12 | XRay Report ---
XR chest 1V portable CLINICAL HISTORY: f/u [facility] TECHNIQUE: Single frontal radiograph of the chest was obtained. Comparison: Comparison is made to chest one view 11/11/2021 FINDINGS: Lines and tubes are stable. The cardiomediastinal silhouette is normal. Right lower lung airspace opa city is seen. A small focus of left lower lung airspace opacity as well. There is a small right pneum othorax, new from prior exam. Underlying right effusion cannot be entirely excluded. IMPRESSION: Interval development of right greater than left lower lung airspace opacities which may represent asp iration or pneumonia. There is interval development of small right pneumothorax. ACT 112: Negative or not required by law. Electronically signed by: Ti Garcia M.D. 11/13/2021 9:11 AM
--- NOTE | 2021-11-13 10:00 | XCELERA ---
[id number] \\[id number]
[2021-11-13] MEDS: GABAPENTIN 250 MG/5 ML 470 ML BTL PEG SCH ×2 (10:41→13:42)
[2021-11-13] MEDS: LANSOPRAZOLE 30 MG SOLTAB PEG SCH (10:41)
[2021-11-13] MEDS: dexAMETHasone 4 MG TAB PO SCH (10:41)
[2021-11-13] MEDS: METHADONE HCL 5 MG TAB PO SCH (10:41)
[2021-11-13] MEDS: ASPIRIN 81 MG CHEW PEG SCH (10:41)
[2021-11-13] MEDS: FIBERSOURCE HN 1.2 CAL 1000 ML BAG GT SCH (10:42)
[2021-11-13] MEDS: VANCOMYCIN HCL 1,000 MG in SODIUM CHLORIDE 0.9% 250 ML IV SCH (12:05)
[2021-11-13] MEDS ORDERED: PNEUMOCOCCAL Polysaccharide Vaccine 25mcg/0.5mL vial/Syr IM ONE (13:30)
[2021-11-13] MEDS ORDERED: LACTATED RINGER'S 500 ML IV ONE ×2 (14:48→19:27)
[2021-11-13] MEDS ORDERED: ALBUMIN 25% 12.5 GM/50 ML VIAL IV ONE (14:48)
[2021-11-13] MEDS ORDERED: ALBUMIN 25% 100 mL 25 GM/100 ML VIAL IV ONE (19:27)
[2021-11-13] MEDS ORDERED: STAT IV Infusion **Titration per Protocol STA (19:44)
[2021-11-13] MEDS ORDERED: NOREPINEPHRINE/D5W 8 MG/508 ML BAG IV SCH (19:45)
--- NOTE | 2021-11-13 20:00 | Hospitalist Progress Note ---
Date of Service November 13, 2021 Assessment & Plan (1) Sepsis: Plan: with septic shock Secondary to MSSA bacteremia/septicemia and Pseudomonas and Staphylococcus pneumonia Lactate 3.4 and no change after 2 L IVFs initially With large vegetation seen on AV on ECHO and +BCxs both upon admission and on repeat blood cultures from 11/12 Remains hypotensive despite stress dose steroids, IV albumin, multiple IVF boluses When I spoke with the patient's son on 11/12, he was ok with vasopressors through PIV temporarily if needed, but wanted to talk to his family before deciding about central venous access The patient's son did not arrive to the hospital all day on 11/13 and did not answer multiple phone calls to have further discussions of goals of care The patient has become an uric today despite normal renal function -We will go ahead and transfer patient to ICU for Levophed through peripheral IV only for now, no central line to be placed until further discussion is had with family as this is an aggressive measure -cont IV hydrocortisone 100mg IV q8h for stress dose steroids -continue Zosyn and Vanco -MRSA swab positive but MSSA in blood cultures -with possible empyema and asp PNA seen on CT chest-continue abx but ultimately if truly has empyema, would need CT surgery-follow CXR -Repeat blood cultures again on 11/13 -Continue to follow blood cultures from 11/12 -follow CBC, CMP, Procal in AM Prognosis extremely guarded, do not suspect patient will survive over the next 24 hours (2) Aspiration pneumonia: Plan: with empyema possibly on CT 11/12 and small PTX developed on 11/13 chest x-ray With extensive right sided infiltrate Likely secondary to aspiration event after he was found down and with known stroke. Trach sputum culture growing probable Pseudomonas species and Staph aureus- awaiting final ID and sensitivities Continue supplemental O2 in the form of high flow through his trach Check ABG Continue IV Zosyn and vancomycin (3) Acute metabolic encephalopathy: Plan: Metabolic/Septic encephalopathy Acute encephalopathy secondary to septic shock and septicemia Also with acute CVA seen on CT Alcohol level negative treating septic shock as above (4) Pneumothorax: Plan: Small, seen on chest x-ray 11/13 Provide supplemental O2 Follow chest x-ray in the morning (5) Septicemia: Plan: as above (6) Acute respiratory failure with hypoxia: Plan: secondary to PNA, pneumothorax, underlying COPD continue supplemental O2 to keep POx> 90-92% (7) Thrombocytopenia: Plan: Platelets dropped significantly today to 46. Platelets were in the 200s on the day of admission Was started on Lovenox the evening of admission Could be secondary to sepsis, medication side effect, or HIT, however for T score low probability at 3 Most likely secondary to sepsis Follow CBC Hold aspirin that was started for stroke, and hold Lovenox started for PEs (8) Endocarditis: Plan: as above, aortic valve large vegetation seen on echocardiogram With persistent bacteremia with MSSA Continue IV vancomycin for now until Staphylococcus aureus in sputum is further speciated-MRSA versus MSSA IV Ancef would likely be a better choice for bacteremia (9) Pulmonary emboli: Plan: Multiple segmental and subsegmental PEs seen on CT angiogram Was on therapeutic Lovenox since the evening of 11/11, but now placed on hold due to worsening thrombocytopenia (10) CVA (cerebral vascular accident): Plan: noted on CT head to have acute CVA in left frontal and temporal regions check MRI brain for confirmation once more HD stable start ASA 81mg daily-now hold for thrombocytopenia When he was awake on the evening of 11/13, he was not using the right side of his body, but was raising his left arm-suspect he has right-sided hemiparesis (11) Underweight: Plan: BMI 13, secondary to met CA (12) Tracheostomy dependent: Plan: Routine trach care (13) 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 of 11/13 for profound hypotension and need for vasopressors (15) Goals of care, counseling/discussion: Plan: Discussed with [facility] and patient has refused to have any written goals. Only recorded relative is his son Shine. On discussion with Handy, patient is DNR/DNI but ok with active care for the infection and vasopressors at least through PIV for overnight if needed Ok to continue to use his feeding tube. As above, asked patient to come into the hospital on morning of 11/13 as patient seemed near , however son did not arrive. Multiple attempts made to contact the son in the evening on 11/13 to no avail. Discussed his care with the home hospice nurse, [facility], on the evening of 11/13-she will attempt to reach out to the son Need to know if patient would want central line placement for vasopressors or transition to comfort measures only Comfort measures only seems to be the more appropriate measure at this time, but will await callback from patient's son for verification Plan: VTE Prophylaxis -Lovenox on hold for thrombocytopenia Diet - NPO, hold tube feeds as above Disposition -transfer to ICU, [facility] hospice as per CM notes DNR/DNI Admission and Anticipated Discharge Date Admission Date: November 11, 2021 Subjective Called urgently to the bedside this morning by nursing as patient was requiring 100% FiO2 and high flow through his trach and was having periods of apnea. He remained hypotensive. A bolused him with fluids, gave him IV albumin, and held his tube feeds for high residuals at this time. The patient was unresponsive but had a pulse and was breathing. I called the patient's son and asked him to come in to see the patient as I felt he was on the verge of passing away. The son told me that he would be on his way and should be here in the next 40 minutes. Throughout the day, the patient did respond and his blood pressure at one point went up into the 90 systolic and he opened his eyes and when asked if he had any pain he was motioning with his left hand but was unable to effectively communicate. The patient's son did not come to the hospital all day. I attempted to call him 3 more times in the evening hours when the patient decompensated again to discuss goals of care and the patient's son did not answer the phone. Because he was persistently hypotensive, decision was made to start Levophed through the peripheral IV and transfer down to the intensive care unit. I also placed a call to his hospice agency on-call nurse and awaiting callback. Review of Systems Review of Systems: All systems reviewed & are unremarkable except as noted in HPI & below Physical Exam Constitutional: + ill appearing, + cachectic, + lethargic and + underweight Eyes: + anicteric sclerae Neck: + abnormal visual inspection (trachesomty tube in place) Respiratory: no cough and not tachypneic Auscultation: + rhonchi (bilat); no wheezes Cardiovascular: RRR, no murmur, no edema Chest (Breasts): Chest: normal inspection of chest Gastrointestinal (Abdomen): normal bowel sounds, soft, nontender, no hepatosplenomegaly Inspection/Auscultation: + abdomen abnormal to inspection (PEG tube in place) Musculoskeletal: Extremities: extremities normal to inspection; no cyanosis and no clubbing Skin: no rashes, warm and dry + dry skin (sloughing skin on feet); no erythema Neurologic: + obtunded At one point was raising left arm, but otherwise not moving extremities Genitourinary: Garces in place with very little urine output Lymphatic: no lymphedema Results & Data Results & Data ([facility]) Vital Signs (Past 12 Hours) Vital Signs Temp Pulse Pulse Resp BP BP Pulse Ox 11/13/21 19:50 72 8 L 79/36 L 100 11/13/21 19:47 77 10 L 100 11/13/21 19:36 80/52 L 11/13/21 19:24 83/53 L 11/13/21 19:04 36.5 C 81 8 L 95/53 L 99 11/13/21 16:01 36.5 C 97 H 15 93/54 L 92 11/13/21 15:35 85 12 100 11/13/21 12:10 36.3 C L 11/13/21 11:33 36.4 C L 100 H 15 85/56 L 98 11/13/21 11:22 98 H 12 100 Laboratory Results 11/13/21 11/13/21 11/13/21 Range/Units 06:23 06:23 06:23 WBC (4.8-10.8) K/uL RBC (4.7-6.1) M/uL Hgb (14.0-18.0) g/dL Hct (42-52) % MCV (80-100) fL MCH (25-34) pg MCHC (32-36) g/dL RDW Std Deviation (36.4-46.3) fL RDW Coeff of Martha (11.5-14.5) % Plt Count (130-400) K/uL MPV (7.4-10.4) fL Immature Gran % (Auto) % Neut % (Auto) % Lymph % (Auto) % Oldham % (Auto) % Eos % (Auto) % Baso % (Auto) % Neut # (Auto) (1.4-6.5) K/uL Lymph # (Auto) (1.2-3.4) K/uL Oldham # (Auto) (0.11-0.59) K/uL Eos # (Auto) (0-0.5) K/uL Baso # (Auto) (0-0.2) K/uL Immature Gran # (Auto) (0.00-0.02) K/uL Platelet Estimate (Normal) Target Cells Echinocytes PT 11.9 (9.0-12.0) Seconds INR 1.2 H (0.9-1.1) Sodium 140 (136-145) mmol/L Potassium 3.6 (3.5-5.1) mmol/L Chloride 105 (98-107) mmol/L Carbon Dioxide 29 (21-32) mmol/L Anion Gap 6.0 (3-11) BUN 37 H (7-18) mg/dl Creatinine 1.11 (0.6-1.4) mg/dl Est Cr Clr Drug Dosing 43.1 ml/min Est GFR ( Amer) 80.3 ml/min Est GFR (Non-Af Amer) 69.3 ml/min BUN/Creatinine Ratio 33.4 H (10-20) Glucose 157 H (70-99) mg/dl POC Glucose (70-99) mg/dl Calcium 8.2 L (8.5-10.1) mg/dl Magnesium 2.0 (1.8-2.4) mg/dl Total Bilirubin 0.6 (0.2-1) mg/dl AST 49 H (15-37) U/L ALT 32 (12-78) Alkaline Phosphatase 70 (45-117) U/L C-Reactive Protein 33.00 H (0-0.29) mg/dl Total Protein 4.6 L (6.4-8.2) gm/dl Albumin 1.2 L (3.4-5.0) gm/dl Globulin 3.4 (2.5-4.0) gm/dl Albumin/Globulin Ratio 0.4 L (0.9-2) Procalcitonin 6.81 H (0-0.5) ng/ml 11/13/21 11/13/21 11/12/21 Range/Units 06:23 06:15 23:59 WBC 14.62 H (4.8-10.8) K/uL RBC 3.32 L (4.7-6.1) M/uL Hgb 10.6 L (14.0-18.0) g/dL Hct 32.0 L (42-52) % MCV 96.4 (80-100) fL MCH 31.9 (25-34) pg MCHC 33.1 (32-36) g/dL RDW Std Deviation 48.0 H (36.4-46.3) fL RDW Coeff of Martha 13.6 (11.5-14.5) % Plt Count 45 L D (130-400) K/uL MPV 10.9 H (7.4-10.4) fL Immature Gran % (Auto) 0.8 % Neut % (Auto) 90.7 % Lymph % (Auto) 3.6 % Oldham % (Auto) 4.9 % Eos % (Auto) 0.0 % Baso % (Auto) 0.0 % Neut # (Auto) 13.27 H (1.4-6.5) K/uL Lymph # (Auto) 0.52 L (1.2-3.4) K/uL Oldham # (Auto) 0.72 H (0.11-0.59) K/uL Eos # (Auto) 0.00 (0-0.5) K/uL Baso # (Auto) 0.00 (0-0.2) K/uL Immature Gran # (Auto) 0.11 H (0.00-0.02) K/uL Platelet Estimate Decreased L (Normal) Target Cells 1+ Echinocytes 1+ PT (9.0-12.0) Seconds INR (0.9-1.1) Sodium (136-145) mmol/L Potassium (3.5-5.1) mmol/L Chloride (98-107) mmol/L Carbon Dioxide (21-32) mmol/L Anion Gap (3-11) BUN (7-18) mg/dl Creatinine (0.6-1.4) mg/dl Est Cr Clr Drug Dosing ml/min Est GFR ( Amer) ml/min Est GFR (Non-Af Amer) ml/min BUN/Creatinine Ratio (10-20) Glucose (70-99) mg/dl POC Glucose 186 H 167 H (70-99) mg/dl Calcium (8.5-10.1) mg/dl Magnesium (1.8-2.4) mg/dl Total Bilirubin (0.2-1) mg/dl AST (15-37) U/L ALT (12-78) Alkaline Phosphatase (45-117) U/L C-Reactive Protein (0-0.29) mg/dl Total Protein (6.4-8.2) gm/dl Albumin (3.4-5.0) gm/dl Globulin (2.5-4.0) gm/dl Albumin/Globulin Ratio (0.9-2) Procalcitonin (0-0.5) ng/ml PG Care Time/CCT Total # of Minutes Spent Total Time Spent with Patient: Total time spent is greater than 50% in coordination of care (as documented) at patient's floor/unit and/or counseling patient: Prolonged Care Time Prolonged Care Time: Yes Total Prolonged Care Time: 120 I spent 120 minutes of prolonged service time on this patient between having critical care management, discussions with family members, nursing staff, reviewing of studies and records, discussing his care with home hospice agency nurse. Coding Level of Care Code 42087 Subseq Hosp Care Lvl 3 (25 - SIGNIFICANT, SEPARATELY IDENTIFIABLE ) Diagnoses Sepsis A41.9 Aspiration pneumonia J69.0 Septicemia A41.9 Endocarditis I38 Squamous cell carcinoma of tongue C02.9 Pulmonary emboli I26.99 CVA (cerebral vascular accident) I63.9 Underweight R63.6 Acute respiratory failure with hypoxia J96.01 Tracheostomy dependent Z93.0 Severe protein-calorie malnutrition E43 Goals of care, counseling/discussion Z71.89 Acute metabolic encephalopathy G93.41 Pneumothorax J93.9 Thrombocytopenia D69.6 Additional Codes Prolonged Care Time - Prolonged Care Time: Yes ([id number])
[2021-11-13] MEDS ORDERED: ICU PROTOCOL FOR HYPERGLYCEMIA PRN (20:55)
[2021-11-13 20:58] LABS: Base Excess ABG 2.5 mEq/L (-9-1.8); HCO3 ABG 26 mmol/L (19-24); Oxygen Saturation ABG 95.4 % (90-95); PCO2 ABG 36 mmHg (35-46); PO2 ABG 71 mmHg (80-95); pH ABG 7.48 (7.35-7.45)
[2021-11-13 21:05] LABS: Allen Test Pos (Pos)
--- NOTE | 2021-11-13 21:37 | Critical Care Consultation ---
Date of Consultation November 13, 2021 Assessment & Plan (1) Admitted to intensive care unit: Reason Critically Ill: 66-year-old male with severe sepsis and septic shock in the setting of gram-positive bacteremia. 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 NEURO - * Encephalopathy: * Multifactorial in the setting of likely recent CVA as well as secondary to current state of illness. * CT brain suggestive of new infarcts. * Concerning for possible septic emboli in the patient with newly found aortic valve vegetation. CARDIAC/VASCULAR - * Hypotension: * Secondary to severe sepsis from gram-positive bacteremia. * Now requiring vasopressors. * Apparently, discussion with son was had previously and he was comfortable 3 with antibiotics and initially was comfortable with vasopressors for a brie f period of time, however they had not been required up until today. Unfortunately, they have been unable to contact the patient's son to provide ongoing guidance with further care. There had apparently been through suggestion for limited intervention given the patient's current status. At this point, we will refrain from central line placement until we are able to contact POA. I did contact available numbers for patient's son, Shine, however he did not answer on multiple calls. * Endocarditis: * Echocardiogram demonstrates large aortic valve mass/vegetation. * Concerning with associated gram-positive bacteremia. * Covered with vancomycin and Zosyn. * Monitor on telemetry. RESPIRATORY - * Respiratory failure with hypoxia in the tracheostomy dependent patient: * Concerns for aspiration pneumonia on chest CT as well as possible septic versus pulmonary emboli. * Anticoagulation held secondary to thrombocytopenia. * Continue with tracheostomy care. GI/NUTRITION - * PEG tube in place RENAL/LYTES - * No significant electrolyte derangements. - * Garces in place - Strict I&Os. ENDO - * No history of diabetes or thyroid disease * BSGs per unit protocol. ISS --> gtt per unit policy. HEME - * Thrombocytopenia: * Likely degree of consumptive coagulopathy in the critically ill patient. ID - * Severe sepsis with septic shock: * Blood cultures positive x2 for staph aureus. * Likely related to endocarditis. * Covered with Zosyn and vancomycin. LINES/IV ACCESS - * PIVs x3 * Tracheostomy * PEG tube DVT PROPHYLAXIS - * Hold on chemoprophylaxis in the setting of thrombocytopenia * SCDs CODE STATUS - * Currently, the patient is receiving palliative care measures at home. On review of the patient's chart, apparently, the patient had never filled out a POLST form despite ongoing management with outpatient hospice care. Limited by previous discussions with the patient's POA, Shine, I was unable to have discussion with the patient or his son at this time to recommend ongoing care at this point. Currently, we will continue with peripheral vasopressors to help maintain maps. Repeat conversation with patient's son regarding ongoing care at this point will be imperative. Unfortunately, the patient's condition with his baseline diagnoses and the addition of the likely bacterial endocarditis with profound septicemia are concerning for poor outcome. I have personally spent 35 minutes of critical care time in the direct management of this patient. This is a life/limb threatening event. This includes time spent evaluating patient, direct bedside care, chart review, placing or ders, interpretation of diagnostic studies, discussion with consultants, patient, and family members, as well as other required patient management activities. This time is exclusive of all separately billable procedures, and teaching time and separate from and in addition to any other critical care service time. Thank you for allowing us to participate in the care of this patient. Please refer to my attending physician's documentation for any further recommendations. (2) Septicemia: (3) Aspiration pneumonia: (4) Tracheostomy dependent: (5) Severe protein-calorie malnutrition: (6) Endocarditis: (7) CVA (cerebral vascular accident): (8) Acute respiratory failure with hypoxia: (9) Acute metabolic encephalopathy: (10) Thrombocytopenia: History of Present Illness Attending Physician: Leandra Walton MD History of Present Illness Patient is a 66-year-old male with a significant past medical history of metastatic squamous cell carcinoma of the tongue, tracheostomy dependent, severe protein calorie malnutrition, CVA, who presented to the emergency department after he had been found down in his home with his inner cannula removed. Patient had multiple sores on his body. Additionally, the patient had concern for aspiration pneumonia with possible septic emboli on CTA. Patient had been on hospice care in the outpatient setting. Initial conversation with the patient's son had suggested that he was comfortable with treatment for infection, however there is suggestion for conservative measures otherwise. Echocardiogram obtained during admission suggests large vegetation on the aortic valve. He has gram-positive bacteremia clusters. He has been treated with Zosyn and vancomycin, but despite this, the patient remains in poor state. Apparently, there has been issues with the patient's blood pressures throughout the day. Apparently, last evening, there was conversation regarding initiation of vasopressors, however these were not warranted over the last several hours. Unfortunately, the son was supposed to contact team regarding ongoing care including additional use of vasopressors, etc., however the patient son, Shine, has not been able to be reached. Unfortunately, the patient's condition has changed and he is now requiring the addition of vasopressors. He will be transferred to the ICU for ongoing care. Upon assessment in the ICU, the patient is somnolent. He is not in respiratory distress. His eyes are open, however he does not provide any meaningful historical information. Allergies Allergy/AdvReac Type Severity Reaction Status Date / Time No Known Allergies Allergy Verified 11/11/21 22:05 Home Medications Medication Instructions Recorded Confirmed Type Majic Mouthwash 5 ml PO QID 11/11/21 11/11/21 History Tube Feeding 1 ea PEG DIRECTED 11/11/21 11/11/21 History acetaminophen 500 mg tablet 500 mg PO BID PRN 11/11/21 11/11/21 History amoxicillin 400 mg/5 mL oral 400 mg PO Q8H 11/11/21 11/11/21 History suspension dexamethasone 4 mg tablet 4 mg PO DAILY 11/11/21 11/11/21 History (Decadron) gabapentin 300 mg capsule 300 mg PO TID 11/11/21 11/11/21 History haloperidol lactate 5 mg/mL 1 mg IM Q4H 11/11/21 11/11/21 History injection solution hyoscyamine sulfate 0.125 mg 0.125 mg PO BID PRN 11/11/21 11/11/21 History tablet (Levsin) ipratropium 0.5 mg-albuterol 3 mg 3 ml INHALATION QID 11/11/21 11/11/21 History (2.5 mg base)/3 mL nebulization soln lorazepam 0.5 mg tablet (Ativan) 0.5 mg PO Q4H PRN 11/11/21 11/11/21 History melatonin 3 mg capsule 3 mg PO HS PRN 11/11/21 11/11/21 History methadone 10 mg/5 mL oral solution 2.5 mg PO BID 11/11/21 11/11/21 History morphine 20 mg/5 mL (4 mg/mL) oral 20 mg PO Q4H PRN 11/11/21 11/11/21 History solution nortriptyline 25 mg capsule 75 mg PO HS 11/11/21 11/11/21 History (Pamelor) omeprazole 20 mg capsule,delayed 20 mg PO DAILY 11/11/21 11/11/21 History release Patient History Medical History Abnormality of tongue Adult failure to thrive Alcohol intoxication Alcohol use Ambulatory dysfunction Anemia Change in mental status CVA (cerebral vascular accident) DVT prophylaxis Hypokalemia Hyponatremia Leukocytosis Precordial chest pain Thrombocytosis Surgical History Hx of gastrostomy (~09/2020) Hx of glossectomy Hx of tracheostomy (~09/2020) Social History Smoking Status: Unknown if ever smoked Tobacco Type: Cigarettes Age Started Using Tobacco: 16; packs per day: 1.5; Years Smoked: 50; Cigarettes Per Day: 1/2 pack per day; Second Hand Exposure: No; Hx Alcohol Use: Yes Alcohol type: beer Alcohol type Comment: since trach and peg tube, takes 4 beers per day via peg Hx Substance Use: Yes Last Used Substance: Days (ago) Last Used Substance Other:: unknown Preferred Language: Portuguese Communication Ability: Impaired Visual Impairment: No Limitations Hearing Ability: Normal Busperson Required: No Beliefs That Will Affect Care: None marital status: Current Living Situation: Alone Current Living Situation Comment: madison Riojas lives nearby, is supportive and helpful current occupational status: retired current occupation: retired from construction work How many Children do You have: 1 Feels Safe at Home: Yes Childhood Exposure to Second-Hand Smoke: Yes Diet Comment: bolus tube feedings via PEG caffeine: No during the past year weight has: decreased > 10 lbs Dental Care, Regularly: No Physical Activity Frequency: Does not Exercise Seatbelt Use: always Sunscreen Use: No Assistive Devices: Cane Review of Systems Review of Systems: Unobtainable due to cognitive status Physical Exam Physical Exam: VITAL SIGNS - Vital signs and nursing notes were reviewed. GENERAL - 66-year-old male appearing older than his stated age who is in no acute distress. Emaciated. SKIN -multiple areas of abrasion and ecchymosis noted throughout the surface of the skin HEAD - NC/AT. EYES -sluggish pupils bilaterally. MOUTH/OROPHARYNX - Without perioral cyanosis. Dry mucous membranes NECK -tracheostomy site in place. Neck with FROM. No nuchal rigidity. LUNGS -coarse breath sounds appreciated throughout lung rider. CARDIAC - RRR with S1/S2. No murmur, rubs, or gallops appreciated. ABDOMEN - Abdominal contour scaphoid without pulsations or visible masses. BS hypoactive. No tenderness, palpable masses, hepatosplenomegaly, or ascites noted. EXTREMITIES - No clubbing or peripheral cyanosis. No pretibial edema present. +3/5 radial and dorsalis pedis pulses palpated throughout. NEUROLOGIC -RIGHT-sided neglect. Limited exam secondary to mental status. Results & Data Results & Data ([facility]) Vital Signs (Past 12 Hours) Vital Signs Temp Pulse Pulse Resp BP BP Pulse Ox 11/13/21 19:50 72 8 L 79/36 L 100 11/13/21 19:47 77 10 L 100 11/13/21 19:36 80/52 L 11/13/21 19:24 83/53 L 11/13/21 19:04 36.5 C 81 8 L 95/53 L 99 11/13/21 16:01 36.5 C 97 H 15 93/54 L 92 11/13/21 15:35 85 12 100 11/13/21 12:10 36.3 C L 11/13/21 11:33 36.4 C L 100 H 15 85/56 L 98 11/13/21 11:22 98 H 12 100 Coding Level of Care Code Critical Care 1st 30-74 mins Diagnoses Admitted to intensive care unit Z78.9 Septicemia A41.9 Aspiration pneumonia J69.0 Tracheostomy dependent Z93.0 Severe protein-calorie malnutrition E43 Endocarditis I38 CVA (cerebral vascular accident) I63.9 Acute respiratory failure with hypoxia J96.01 Acute metabolic encephalopathy G93.41 Thrombocytopenia D69.6 Time Spent (min) 35
[2021-11-14] MEDS: PIPERACILLIN/TAZOBACTAM 3.375 GM in DEXTROSE 5% 100 ML IV SCH ×2 (00:05→09:15)
[2021-11-14] MEDS: LACTATED RINGER'S 1,000 ML IV SCH (04:08)
[2021-11-14 05:27] LABS: INR 1.1 (0.9-1.1); Prothrombin Time 10.8 Seconds (9.0-12.0)
[2021-11-14] MEDS: TUBE FEEDING WATER FLUSH GT SCH (05:33)
[2021-11-14 05:34] LABS: Albumin Level 1.8 gm/dl (3.4-5.0); BUN Creatinine Ratio 37.2 (10-20); Bilirubin Direct 0.4 mg/dl (0-0.2); Calcium 8.2 mg/dl (8.5-10.1); Creatinine Clr Calc Pharmacy 54.3 ml/min; Est GFR (African American) 104.5 ml/min; Est GFR (Non-African American) 90.1 ml/min; Potassium 3.3 mmol/L (3.5-5.1)
[2021-11-14] MEDS: HYDROCORTISONE SOD 100 MG in SYRINGE 0 ML IV SCH (05:35)
[2021-11-14 05:37] LABS: Bilirubin,Total 0.8 mg/dl (0.2-1); Phosphorus 2.4 mg/dl (2.5-4.9)
[2021-11-14 06:18] LABS: Hematocrit (blood only) 27.9 % (42-52); Hemoglobin 9.6 g/dL (14.0-18.0); Mean Corpuscular Hemoglobin 32.7 pg (25-34); Mean Corpuscular Hgb Conc 34.4 g/dL (32-36); Mean Corpuscular Volume 94.9 fL (80-100); Mean Platelet Volume 11.3 fL (7.4-10.4); Platelet Count 23 K/uL (130-400); RDW Coefficient of Variation 13.4 % (11.5-14.5); RDW Standard Deviation 46.7 fL (36.4-46.3); Red Blood Count 2.94 M/uL (4.7-6.1); White Blood Count 22.81 K/uL (4.8-10.8)
[2021-11-14 06:21] LABS: ALC (manual) 0.21 K/uL (1.2-3.4); ANC (manual) 21.81 K/uL (1.4-6.5); Lymphocytes # (manual) 0.21 K/uL (1.2-3.4); Lymphocytes % (manual) 0.9 %; Metamyelocytes # (manual) 0.21 K/uL (0-0); Metamyelocytes % (manual) 0.9 %; Monocytes # (manual) 0.59 K/uL (0.11-0.59); Monocytes % (manual) 2.6 %; Neutrophils # (manual) 21.81 K/uL (1.4-6.5); Neutrophils % (manual) 95.6 %; Target Cells 1+
--- NOTE | 2021-11-14 08:37 | XRay Report ---
XR chest 1V portable CLINICAL HISTORY: Follow-up pneumonia and right pneumothorax. COMPARISON STUDY: 11/13/2021 TECHNIQUE: 1 view of the chest FINDINGS: Single frontal view of the chest demonstrates the cardiomediastinal silhouette to be within normal li mits. Tracheostomy tube is again seen. Compared to the previous examination, there is a persistent sm all right apical pneumothorax. There has been interval worsening of confluent alveolar opacities with in the right mid to lower lung and at the left lung base. There is left lower lobe atelectasis/collap se. There is also evidence for small bilateral pleural effusions. There is no evidence for vascular c ongestion. There is no acute osseous pathology. IMPRESSION: 1. Interval worsening of bilateral alveolar opacities, right greater than left. 2. Interval development of left lower lobe atelectasis/collapse. 3. Evidence for small bilateral pleural effusions. 4. Small right apical pneumothorax is again seen. ACT 112: Negative or not required by law. Electronically signed by: Shailesh Grant M.D. 11/14/2021 8:36 AM
[2021-11-14] MEDS: ALBUT/IPRATROP 3MG/0.5MG NEB 3 ML VIAL INH SCH (08:49)
[2021-11-14] MEDS ORDERED: POTASSIUM PHOSPHATE 21 MMOL in SODIUM CHLORIDE 0.9% 500 ML IV ONE (09:15)
[2021-11-14] MEDS: LANSOPRAZOLE 30 MG SOLTAB PEG SCH (09:15)
[2021-11-14] MEDS: dexAMETHasone 4 MG TAB PO SCH (09:16)
--- NOTE | 2021-11-14 10:11 | Critical Care Progress Note ---
Date of Service November 14, 2021 Assessment & Plan (1) Admitted to intensive care unit: (2) Thrombocytopenia: (3) Acute metabolic encephalopathy: (4) Acute respiratory failure with hypoxia: (5) CVA (cerebral vascular accident): (6) Endocarditis: (7) Septicemia: (8) Aspiration pneumonia: (9) Tracheostomy dependent: (10) Severe protein-calorie malnutrition: Plan: Reason Critically Ill: 66-year-old male with severe sepsis and septic shock in the setting of gram-positive bacteremia. 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 NEURO - * Encephalopathy: * * Multifactorial in the setting of likely recent CVA as well as secondary to current state of illness. * CT brain suggestive of new infarcts. * Concerning for possible septic emboli in the patient with newly found aortic valve vegetation. CARDIAC/VASCULAR - * Hypotension: * * Secondary to severe sepsis from gram-positive bacteremia. * Now requiring vasopressors. * Apparently, discussion with son was had previously and he was comfortable 3 with antibiotics and initially was comfortable with vasopressors for a brie f period of time, however they had not been required up until today. Unfortunately, they have been unable to contact the patient's son to provide ongoing guidance with further care. There had apparently been through suggestion for limited intervention given the patient's current status. At this point, we will refrain from central line placement until we are able to contact POA. I did contact available numbers for patient's son, Shine, however he did not answer on multiple calls. * Endocarditis: * * Echocardiogram demonstrates large aortic valve mass/vegetation. * Concerning with associated gram-positive bacteremia. * Covered with vancomycin and Zosyn. * Monitor on telemetry. RESPIRATORY - * Respiratory failure with hypoxia in the tracheostomy dependent patient: * * Concerns for aspiration pneumonia on chest CT as well as possible septic versus pulmonary emboli. * Anticoagulation held secondary to thrombocytopenia. * Continue with tracheostomy care. GI/NUTRITION - * PEG tube in place RENAL/LYTES - * No significant electrolyte derangements. - * Garces in place - Strict I&Os. ENDO - * No history of diabetes or thyroid disease * * BSGs per unit protocol. ISS --> gtt per unit policy. HEME - * Thrombocytopenia: * * Likely degree of consumptive coagulopathy in the critically ill patient. ID - * Severe sepsis with septic shock: * * Blood cultures positive x2 for staph aureus. * Likely related to endocarditis. * Covered with Zosyn and vancomycin. LINES/IV ACCESS - * PIVs x3 * Tracheostomy * PEG tube DVT PROPHYLAXIS - * Hold on chemoprophylaxis in the setting of thrombocytopenia * SCDs CODE STATUS - * DNR/DNI Plan: In/out: +0.2 L, urine output 400 mL Hypokalemia and hypophosphatemia being replaced Vancomycin discontinued as it is MSSA Sputum culture is growing Pseudomonas. Continue with Zosyn which will follow for anaerobes for possible aspiration pneumonia as well Chest x-ray from today shows worsening of right-sided infiltrate I spoke with patient's son and updated him regarding patient's condition and clinical deterioration since last night. He understands and states that his father would not like to be like this. Patient was already on hospice prior to coming to the hospital The prognosis is poor given the recent infarct as well as the infection now. I would like to pursue comfort measures We will stop all the intervention and keep the patient comfortable. Hospice nurse is also in the room. He will be made aware regarding of the above. Fentanyl pushes as needed I have personally spent 41 minutes of critical care time in the direct management of this patient. This is a life/limb threatening event. This includes time spent evaluating patient, direct bedside care, chart review, placing orders, interpretation of diagnostic studies, discussion with consultants, patient, and family members, as well as other required patient management activities. This time is exclusive of all separately billable procedures, and teaching time and separate from and in addition to any other critical care service time. Please note the above document was generated using voice recognition software. It may contain grammatical, syntax or spelling errors. Admission and Anticipated Discharge Date Admission Date: November 11, 2021 Subjective Patient seen and examined at bedside. No acute distress. Patient was on 0.12 of Levophed with map in the mid 70s. I went down to 0.08 He is nonverbal. He is moving his left upper and left lower extremity more purposefully. Is not following commands Review of Systems Review of Systems: Unobtainable due to mental health condition Physical Exam Physical Exam: Constitutional: No acute distress HEENT: Positive trach, PERRL Respiratory system: Decreased air entry bilaterally more decreased on the right side, no wheeze, positive rhonchi bilaterally, positive crackles right lower lobe CVS: S1-S2 positive, no murmurs or gallops Abdomen: Soft, nontender, nondistended, positive bowel sounds x4, positive PEG Extremities: +2 pulses bilaterally radialis/ dorsalis pedis, no cyanosis, no edema Neuro: Awake and alert. Nonverbal. Does not follow commands. Right-sided hemiplegia Psych: Unable to assess G/U: Positive Garces Skin: no rashes, warm and dry Lymphatic: no cervical or axillary lymphadenopathy Results & Data Results & Data ([facility]) Vital Signs (Past 12 Hours) Vital Signs Pulse Pulse Resp BP Pulse Ox 11/14/21 08:49 84 18 94 11/14/21 05:45 68 34 H 116/56 L 98 11/14/21 05:30 79 27 H 114/50 L 96 11/14/21 05:15 74 20 115/53 L 96 11/14/21 05:00 100 H 25 H 124/88 89 L 11/14/21 04:45 97 H 21 134/73 95 11/14/21 04:30 113/55 L 95 11/14/21 04:15 105 H 24 125/54 L 96 11/14/21 04:00 97 H 21 141/58 H 93 11/14/21 03:45 94 H 15 138/63 96 11/14/21 03:30 75 8 L 130/60 96 11/14/21 03:15 71 12 121/57 L 96 11/14/21 03:00 105 H 18 132/59 L 97 11/14/21 02:45 86 22 119/57 L 93 11/14/21 02:30 98 H 17 139/64 95 11/14/21 02:15 72 15 133/62 96 11/14/21 02:00 74 17 132/69 95 11/14/21 01:45 99 H 21 124/60 97 11/14/21 01:30 77 10 L 119/65 98 11/14/21 01:15 78 20 117/60 98 11/14/21 01:00 73 15 117/56 L 97 11/14/21 00:50 75 22 123/60 97 11/14/21 00:40 76 21 119/62 97 11/14/21 00:30 70 15 106/53 L 95 11/14/21 00:20 74 17 109/53 L 97 11/14/21 00:10 72 10 L 112/57 L 97 11/14/21 00:00 96 H 23 121/50 L 93 11/13/21 23:50 93 H 21 119/57 L 89 L 11/13/21 23:40 66 11 L 115/53 L 97 11/13/21 23:30 71 16 99/49 L 94 11/13/21 23:20 91 H 19 97/53 L 95 11/13/21 23:10 101 H 19 108/65 90 11/13/21 23:00 74 14 111/56 L 96 11/13/21 22:50 95 H 19 109/56 L 93 11/13/21 22:40 76 15 104/52 L 95 11/13/21 22:30 96 H 26 H 106/52 L 93 11/13/21 22:20 74 19 97/51 L 95 Laboratory Results 11/14/21 04:57 11/14/21 04:57 Coding Level of Care Code Critical Care 1st 30-74 mins Diagnoses Admitted to intensive care unit Z78.9 Thrombocytopenia D69.6 Acute metabolic encephalopathy G93.41 Acute respiratory failure with hypoxia J96.01 CVA (cerebral vascular accident) I63.9 Endocarditis I38 Septicemia A41.9 Aspiration pneumonia J69.0 Tracheostomy dependent Z93.0 Severe protein-calorie malnutrition E43 Time Spent (min) 41
[2021-11-14] MEDS ORDERED: MoRPHine SULFATE 5 MG/0.25 ML UDP GT PRN (11:03)
[2021-11-14] MEDS ORDERED: LORazepam 0.5 MG TAB SL PRN (11:03)
[2021-11-14] MEDS ORDERED: ONDANSETRON INJ 2 MG/ML 2 ML VIAL IV PRN (11:03)
[2021-11-14] MEDS: LORazepam 0.5 MG/1 ML VIAL IV PRN (12:41)
--- NOTE | 2021-11-14 19:26 | Hospitalist Progress Note ---
Date of Service November 14, 2021 Assessment & Plan (1) Comfort measures only status: Plan: Transition to comfort measures only on 11/14 Transition out of ICU to medical/surgical floor -Discontinue all lab draws -Discontinue IV fluids, antibiotics, tube feeds, and vasopressors -Give IV morphine or Roxanol through PEG tube as needed for pain or breathlessness -Give lorazepam as needed for anxiety or agitation -Give glycopyrrolate as needed for secretions -Maintain Garces catheter -Hospice nurse visited on 11/14 as he is on GIP (2) Sepsis: Plan: with septic shock Secondary to MSSA bacteremia/septicemia and Pseudomonas and Staphylococcus pneumonia Lactate 3.4 and no change after 2 L IVFs initially With large vegetation seen on AV on ECHO and +BCxs both upon admission and on repeat blood cultures from 11/12 With possible empyema and asp PNA seen on CT chest Remained hypotensive despite stress dose steroids, IV albumin, and multiple IVF boluses When I spoke with the patient's son on 11/12, he was ok with vasopressors through PIV temporarily if needed, but wanted to talk to his family before deciding about central venous access The patient's son did not arrive to the hospital all day on 11/13 and did not answer multiple phone calls to have further discussions of goals of care and therefore he was transferred to the ICU for vasopressors on the evening of 11/13 His blood pressure did improve with Levophed, however the safety lead was able to get in touch with the patient's son on the morning of 11/14 and decision was made to pursue comfort measures only -Discontinue all antibiotics -Discontinue vasopressors [employer] as above (3) Aspiration pneumonia: Plan: with empyema possibly on CT 11/12 and small PTX developed on 11/13 chest x-ray With extensive right sided infiltrate Likely secondary to aspiration event after he was found down and with known stroke. Trach sputum culture growing Pseudomonas and Staph -Discontinue antibiotics [employer] as above (4) Acute metabolic encephalopathy: Plan: Metabolic/Septic encephalopathy Acute encephalopathy secondary to septic shock and septicemia, acute CVAimproved somewhat after hypotension improved, however remains significantly confused, not able to communicate Alcohol level negative Transitioning to [employer] (5) Pneumothorax: Plan: Small, seen on chest x-ray 11/13 Provide supplemental O2 (6) Septicemia: Plan: as above (7) Acute respiratory failure with hypoxia: Plan: secondary to PNA, pneumothorax, underlying COPD continue supplemental O2 for comfort (8) Thrombocytopenia: Plan: Platelets continue to drop even further to 23,000 today Platelets were in the 200s on the day of admission Was started on Lovenox the evening of admission but do not think this is HIT- however for T score low probability at 3 Most likely secondary to sepsis No further lab draws (9) Endocarditis: Plan: as above, aortic valve large vegetation seen on echocardiogram With persistent bacteremia with MSSA, he would need CT surgery evaluation but pursuing comfort measures now Discontinuing all antibiotics for [employer] (10) Pulmonary emboli: Plan: Multiple segmental and subsegmental PEs seen on CT angiogram Was on therapeutic Lovenox which was then placed on hold due to worsening thrombocytopenia No further anticoagulation due to [employer] (11) CVA (cerebral vascular accident): Plan: noted on CT head to have acute CVA in left frontal and temporal regions With right-sided hemiparesis and encephalopathy (12) Underweight: Plan: BMI 13, secondary to met CA (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: Plan: Routine trach care (14) 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 - reason for tracheostomy with large neck mass eroding into hyoid and mandible Pursuing [employer] (15) Severe protein-calorie malnutrition: Plan: Discontinue tube feeds for [employer] Plan: Disposition-transition to [employer] medical/surgical floor out of ICU, expect him to pass away within the next 7 days DNR/DNI Admission and Anticipated Discharge Date Admission Date: November 11, 2021 Subjective Patient awake today, but will not respond to questions, continuously slaps his left hand down on his thigh. I tried to get him to hold a pen and write on a piece of paper but he continued to punch the clipboard with his left hand. I asked him to point to where he was having an issue and he continued to do the same motion with his left hand. He seemed encephalopathic. He remained on Levophed at the time when I saw him, however the safety lead spoke with the patient's son on the phone and decision was made to pursue comfort measures. Review of Systems Review of Systems: Unobtainable due to cognitive status Physical Exam Constitutional: + ill appearing, + cachectic and + underweight; not lethargic Eyes: + anicteric sclerae Neck: + abnormal visual inspection (trachesomty tube in place) Respiratory: no cough and not tachypneic Auscultation: + rhonchi (bilat); no wheezes Cardiovascular: RRR, no murmur, no edema Chest (Breasts): Chest: normal inspection of chest Gastrointestinal (Abdomen): normal bowel sounds, soft, nontender, no hepatosplenomegaly Inspection/Auscultation: + abdomen abnormal to inspection (PEG tube in place) Musculoskeletal: Extremities: extremities normal to inspection; no cyanosis and no clubbing Skin: no rashes, warm and dry + dry skin (sloughing skin on feet); no erythema Neurologic: + focal motor deficit (Right-sided hemiparesis) and + confused Right-sided hemineglect Genitourinary: Garces catheter in place Lymphatic: no lymphedema Results & Data Results & Data ([facility]) Vital Signs (Past 12 Hours) Vital Signs Pulse Pulse Resp BP Pulse Ox 11/14/21 10:00 104 H 18 114/68 90 11/14/21 09:00 97 H 32 H 120/66 91 11/14/21 08:49 84 18 94 11/14/21 08:00 75 17 115/56 L 94 Laboratory Results 11/14/21 11/14/21 11/14/21 Range/Units 04:57 04:57 04:57 WBC (4.8-10.8) K/uL RBC (4.7-6.1) M/uL Hgb (14.0-18.0) g/dL Hct (42-52) % MCV (80-100) fL MCH (25-34) pg MCHC (32-36) g/dL RDW Std Deviation (36.4-46.3) fL RDW Coeff of Martha (11.5-14.5) % Plt Count (130-400) K/uL MPV (7.4-10.4) fL Neutrophils % (Manual) % Lymphocytes % (Manual) % Monocytes % (Manual) % Metamyelocytes % (Man) % Neutrophils # (Manual) (1.4-6.5) K/uL Total Absolute Neuts (1.4-6.5) K/uL Lymphocytes # (Manual) (1.2-3.4) K/uL Total Abs Lymphocytes (1.2-3.4) K/uL Monocytes # (Manual) (0.11-0.59) K/uL Metamyelocytes # (Man) (0-0) K/uL Target Cells PT (9.0-12.0) Seconds INR (0.9-1.1) ABG pH ABG pCO2 ABG pO2 ABG HCO3 ABG O2 Saturation ABG Base Excess Dilan Test Barometric Pressure Oxygen Given Sodium 139 (136-145) mmol/L Potassium 3.3 L (3.5-5.1) mmol/L Chloride 106 (98-107) mmol/L Carbon Dioxide 27 (21-32) mmol/L Anion Gap 6.0 (3-11) BUN 33 H (7-18) mg/dl Creatinine 0.88 (0.6-1.4) mg/dl Est Cr Clr Drug Dosing 54.3 ml/min Est GFR ( Amer) 104.5 ml/min Est GFR (Non-Af Amer) 90.1 ml/min BUN/Creatinine Ratio 37.2 H (10-20) Glucose 151 H (70-99) mg/dl POC Glucose (70-99) mg/dl Lactate 2.1 H* (0.4-2.0) mmol/L Calcium 8.2 L (8.5-10.1) mg/dl Phosphorus 2.4 L (2.5-4.9) mg/dl Magnesium 2.0 (1.8-2.4) mg/dl Total Bilirubin 0.8 (0.2-1) mg/dl Direct Bilirubin 0.4 H (0-0.2) mg/dl AST 45 H (15-37) U/L ALT 32 (12-78) Alkaline Phosphatase 64 (45-117) U/L Total Protein 5.0 L (6.4-8.2) gm/dl Albumin 1.8 L (3.4-5.0) gm/dl Procalcitonin 2.77 H (0-0.5) ng/ml Nasal Screen MRSA (PCR) (Negative) 11/14/21 11/14/21 11/14/21 Range/Units 04:57 04:57 04:04 WBC 22.81 H (4.8-10.8) K/uL RBC 2.94 L (4.7-6.1) M/uL Hgb 9.6 L (14.0-18.0) g/dL Hct 27.9 L (42-52) % MCV 94.9 (80-100) fL MCH 32.7 (25-34) pg MCHC 34.4 (32-36) g/dL RDW Std Deviation 46.7 H (36.4-46.3) fL RDW Coeff of Martha 13.4 (11.5-14.5) % Plt Count 23 L* (130-400) K/uL MPV 11.3 H (7.4-10.4) fL Neutrophils % (Manual) 95.6 % Lymphocytes % (Manual) 0.9 % Monocytes % (Manual) 2.6 % Metamyelocytes % (Man) 0.9 % Neutrophils # (Manual) 21.81 H (1.4-6.5) K/uL Total Absolute Neuts 21.81 H (1.4-6.5) K/uL Lymphocytes # (Manual) 0.21 L (1.2-3.4) K/uL Total Abs Lymphocytes 0.21 L (1.2-3.4) K/uL Monocytes # (Manual) 0.59 (0.11-0.59) K/uL Metamyelocytes # (Man) 0.21 H (0-0) K/uL Target Cells 1+ PT 10.8 (9.0-12.0) Seconds INR 1.1 (0.9-1.1) ABG pH ABG pCO2 ABG pO2 ABG HCO3 ABG O2 Saturation ABG Base Excess Dilan Test Barometric Pressure Oxygen Given Sodium (136-145) mmol/L Potassium (3.5-5.1) mmol/L Chloride (98-107) mmol/L Carbon Dioxide (21-32) mmol/L Anion Gap (3-11) BUN (7-18) mg/dl Creatinine (0.6-1.4) mg/dl Est Cr Clr Drug Dosing ml/min Est GFR ( Amer) ml/min Est GFR (Non-Af Amer) ml/min BUN/Creatinine Ratio (10-20) Glucose (70-99) mg/dl POC Glucose 155 H (70-99) mg/dl Lactate (0.4-2.0) mmol/L Calcium (8.5-10.1) mg/dl Phosphorus (2.5-4.9) mg/dl Magnesium (1.8-2.4) mg/dl Total Bilirubin (0.2-1) mg/dl Direct Bilirubin (0-0.2) mg/dl AST (15-37) U/L ALT (12-78) Alkaline Phosphatase (45-117) U/L Total Protein (6.4-8.2) gm/dl Albumin (3.4-5.0) gm/dl Procalcitonin (0-0.5) ng/ml Nasal Screen MRSA (PCR) (Negative) 11/14/21 11/13/21 11/13/21 Range/Units 00:05 21:10 20:45 WBC (4.8-10.8) K/uL RBC (4.7-6.1) M/uL Hgb (14.0-18.0) g/dL Hct (42-52) % MCV (80-100) fL MCH (25-34) pg MCHC (32-36) g/dL RDW Std Deviation (36.4-46.3) fL RDW Coeff of Martha (11.5-14.5) % Plt Count (130-400) K/uL MPV (7.4-10.4) fL Neutrophils % (Manual) % Lymphocytes % (Manual) % Monocytes % (Manual) % Metamyelocytes % (Man) % Neutrophils # (Manual) (1.4-6.5) K/uL Total Absolute Neuts (1.4-6.5) K/uL Lymphocytes # (Manual) (1.2-3.4) K/uL Total Abs Lymphocytes (1.2-3.4) K/uL Monocytes # (Manual) (0.11-0.59) K/uL Metamyelocytes # (Man) (0-0) K/uL Target Cells PT (9.0-12.0) Seconds INR (0.9-1.1) ABG pH 7.48 H ABG pCO2 36 ABG pO2 71 L ABG HCO3 26 H ABG O2 Saturation 95.4 H ABG Base Excess 2.5 H Dilan Test Pos Barometric Pressure 722.9 Oxygen Given 50 Sodium (136-145) mmol/L Potassium (3.5-5.1) mmol/L Chloride (98-107) mmol/L Carbon Dioxide (21-32) mmol/L Anion Gap (3-11) BUN (7-18) mg/dl Creatinine (0.6-1.4) mg/dl Est Cr Clr Drug Dosing ml/min Est GFR ( Amer) ml/min Est GFR (Non-Af Amer) ml/min BUN/Creatinine Ratio (10-20) Glucose (70-99) mg/dl POC Glucose 162 H (70-99) mg/dl Lactate (0.4-2.0) mmol/L Calcium (8.5-10.1) mg/dl Phosphorus (2.5-4.9) mg/dl Magnesium (1.8-2.4) mg/dl Total Bilirubin (0.2-1) mg/dl Direct Bilirubin (0-0.2) mg/dl AST (15-37) U/L ALT (12-78) Alkaline Phosphatase (45-117) U/L Total Protein (6.4-8.2) gm/dl Albumin (3.4-5.0) gm/dl Procalcitonin (0-0.5) ng/ml Nasal Screen MRSA (PCR) Negative (Negative) 11/13/21 Range/Units 20:17 WBC (4.8-10.8) K/uL RBC (4.7-6.1) M/uL Hgb (14.0-18.0) g/dL Hct (42-52) % MCV (80-100) fL MCH (25-34) pg MCHC (32-36) g/dL RDW Std Deviation (36.4-46.3) fL RDW Coeff of Martha (11.5-14.5) % Plt Count (130-400) K/uL MPV (7.4-10.4) fL Neutrophils % (Manual) % Lymphocytes % (Manual) % Monocytes % (Manual) % Metamyelocytes % (Man) % Neutrophils # (Manual) (1.4-6.5) K/uL Total Absolute Neuts (1.4-6.5) K/uL Lymphocytes # (Manual) (1.2-3.4) K/uL Total Abs Lymphocytes (1.2-3.4) K/uL Monocytes # (Manual) (0.11-0.59) K/uL Metamyelocytes # (Man) (0-0) K/uL Target Cells PT (9.0-12.0) Seconds INR (0.9-1.1) ABG pH Cancelled ABG pCO2 Cancelled ABG pO2 Cancelled ABG HCO3 Cancelled ABG O2 Saturation Cancelled ABG Base Excess Cancelled Dilan Test Cancelled Barometric Pressure Cancelled Oxygen Given Cancelled Sodium (136-145) mmol/L Potassium (3.5-5.1) mmol/L Chloride (98-107) mmol/L Carbon Dioxide (21-32) mmol/L Anion Gap (3-11) BUN (7-18) mg/dl Creatinine (0.6-1.4) mg/dl Est Cr Clr Drug Dosing ml/min Est GFR ( Amer) ml/min Est GFR (Non-Af Amer) ml/min BUN/Creatinine Ratio (10-20) Glucose (70-99) mg/dl POC Glucose (70-99) mg/dl Lactate (0.4-2.0) mmol/L Calcium (8.5-10.1) mg/dl Phosphorus (2.5-4.9) mg/dl Magnesium (1.8-2.4) mg/dl Total Bilirubin (0.2-1) mg/dl Direct Bilirubin (0-0.2) mg/dl AST (15-37) U/L ALT (12-78) Alkaline Phosphatase (45-117) U/L Total Protein (6.4-8.2) gm/dl Albumin (3.4-5.0) gm/dl Procalcitonin (0-0.5) ng/ml Nasal Screen MRSA (PCR) (Negative) PG Care Time/CCT Total # of Minutes Spent Total Time Spent with Patient: Total time spent is greater than 50% in coordination of care (as documented) at patient's floor/unit and/or counseling patient: Coding Level of Care Code 22183 Subseq Hosp Care Lvl 3 Diagnoses Sepsis A41.9 Aspiration pneumonia J69.0 Acute metabolic encephalopathy G93.41 Pneumothorax J93.9 Septicemia A41.9 Acute respiratory failure with hypoxia J96.01 Thrombocytopenia D69.6 Endocarditis I38 Pulmonary emboli I26.99 CVA (cerebral vascular accident) I63.9 Underweight R63.6 Tracheostomy dependent Z93.0 Squamous cell carcinoma of tongue C02.9 Severe protein-calorie malnutrition E43 Comfort measures only status Z51.5
[2021-11-14] MEDS: MoRPHine SULFATE 2 MG/ML CARP IV PRN (19:49)
[2021-11-14] MEDS ORDERED: HYDROCORTISONE SOD 50 MG in SYRINGE 0 ML IV SCH (21:00)
[2021-11-14 22:26] LABS: Methadone, Ur Metabolite 2810 ng/mL (<100)
[2021-11-15] MEDS: MoRPHine SULFATE 2 MG/ML CARP IV PRN ×10 (09:36→23:15)
--- NOTE | 2021-11-15 12:39 | Hospitalist Progress Note ---
Date of Service November 15, 2021 Assessment & Plan (1) Comfort measures only status: Plan: Transitioned to comfort measures only on 11/14 Transitioned out of ICU to medical/surgical floor -Discontinued all lab draws -Discontinued IV fluids, antibiotics, tube feeds, and vasopressors -continue IV morphine but increase frequency to q1hr, or Roxanol through PEG tube as needed for pain or breathlessness -Give lorazepam as needed for anxiety or agitation -Give glycopyrrolate as needed for secretions -Maintain Garces catheter -Hospice nurse visited on 11/14 as he is on GIP (2) Sepsis: Plan: with septic shock Secondary to MSSA bacteremia/septicemia and Pseudomonas and Staphylococcus pneumonia Lactate 3.4 and no change after 2 L IVFs initially With large vegetation seen on AV on ECHO and +BCxs both upon admission and on repeat blood cultures from 11/12 as well as 11/13 With possible empyema and asp PNA seen on CT chest Remained hypotensive despite stress dose steroids, IV albumin, and multiple IVF boluses When I spoke with the patient's son on 11/12, he was ok with vasopressors through PIV temporarily if needed, but wanted to talk to his family before deciding about central venous access The patient's son did not arrive to the hospital all day on 11/13 and did not answer multiple phone calls to have further discussions of goals of care and therefore he was transferred to the ICU for vasopressors on the evening of 11/13 His blood pressure did improve with Levophed, however the draughtsman was able to get in touch with the patient's son on the morning of 11/14 and decision was made to pursue comfort measures only Son spoke with RN on 11/15 and confirmed he just does not want to see his dad in this condition and will not be coming in to visit for end of life -Discontinued all antibiotics -Discontinued vasopressors SHOCK ABSORPTION FLOOR LAYER as above (3) Aspiration pneumonia: Plan: with empyema possibly on CT 11/12 and small PTX developed on 11/13 chest x-ray With extensive right sided infiltrate Likely secondary to aspiration event after he was found down and with known stroke. Trach sputum culture growing Pseudomonas and Staph -continue supplemental O2 for comfort-can do trach collar -Discontinued all antibiotics SHOCK ABSORPTION FLOOR LAYER as above (4) Acute metabolic encephalopathy: Plan: Metabolic/Septic encephalopathy Acute encephalopathy secondary to septic shock and septicemia, acute CVA improved somewhat after hypotension improved, however remains significantly confused, not able to communicate Alcohol level negative Transitioned to SHOCK ABSORPTION FLOOR LAYER (5) Pneumothorax: Plan: Small, seen on chest x-ray 11/13 Provide supplemental O2 (6) Septicemia: Plan: as above (7) Acute respiratory failure with hypoxia: Plan: secondary to PNA, pneumothorax, underlying COPD continue supplemental O2 for comfort (8) Thrombocytopenia: Plan: Platelets continued to drop even further to 23,000 Platelets were in the 200s on the day of admission Was started on Lovenox the evening of admission but do not think this is HIT- however for T score low probability at 3 Most likely secondary to sepsis With diffuse petechiae No further lab draws (9) Endocarditis: Plan: as above, aortic valve large vegetation seen on echocardiogram With persistent bacteremia with MSSA, he would need CT surgery evaluation but now on comfort measures Discontinued all antibiotics for SHOCK ABSORPTION FLOOR LAYER (10) Pulmonary emboli: Plan: Multiple segmental and subsegmental PEs seen on CT angiogram Was on therapeutic Lovenox which was then placed on hold due to worsening thrombocytopenia No further anticoagulation due to SHOCK ABSORPTION FLOOR LAYER (11) CVA (cerebral vascular accident): Plan: noted on CT head to have acute CVA in left frontal and temporal regions With right-sided hemiparesis and encephalopathy (12) Underweight: Plan: BMI 13, secondary to met CA (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: Plan: Routine trach care (14) 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 seems more calm than yesterday,has been medicated with lorazepam and morphine today due to SOB and restlessness. Review of Systems Review of Systems: Unobtainable due to cognitive status Physical Exam Constitutional: + ill appearing, + cachectic and + underweight; not lethargic Eyes: + anicteric sclerae Neck: + abnormal visual inspection (trachestomy tube in place) Respiratory: no cough and not tachypneic Auscultation: + rhonchi (bilat); no wheezes Cardiovascular: RRR, no murmur, no edema Chest (Breasts): Chest: normal inspection of chest Gastrointestinal (Abdomen): normal bowel sounds, soft, nontender, no hepatosplenomegaly Inspection/Auscultation: + abdomen abnormal to inspection (PEG tube in place) Musculoskeletal: Extremities: extremities normal to inspection; no cyanosis and no clubbing Skin: + rash (petechiae diffusely) and + dry skin (sloughing skin on feet); no erythema Neurologic: + focal motor deficit (Right-sided hemiparesis) and + confused PG Care Time/CCT Total # of Minutes Spent Total Time Spent with Patient: Total time spent is greater than 50% in coordination of care (as documented) at patient's floor/unit and/or counseling patient: Coding Level of Care Code 07257 Subseq Hosp Care Lvl 1 Diagnoses Comfort measures only status Z51.5 Sepsis A41.9 Aspiration pneumonia J69.0 Acute metabolic encephalopathy G93.41 Pneumothorax J93.9 Septicemia A41.9 Acute respiratory failure with hypoxia J96.01 Thrombocytopenia D69.6 Endocarditis I38 Pulmonary emboli I26.99 CVA (cerebral vascular accident) I63.9 Underweight R63.6 Tracheostomy dependent Z93.0 Squamous cell carcinoma of tongue C02.9 Severe protein-calorie malnutrition E43
[2021-11-15] MEDS: GLYCOPYRROLATE 0.2 MG/ML VIAL IV PRN (21:55)
[2021-11-16] MEDS: MoRPHine SULFATE 2 MG/ML CARP IV PRN ×4 (01:01→04:33)
[2021-11-16] MEDS: GLYCOPYRROLATE 0.2 MG/ML VIAL IV PRN (04:37)
[2021-11-16] MEDS: LORazepam 0.5 MG/1 ML VIAL IV PRN (05:05)
--- NOTE | 2021-11-16 08:13 | Death Pronouncement Note ---
Date of Service November 16, 2021 Pronouncement Note Admission Date Admission Date: November 11, 2021 Date and Time of Date of : 11/16/21 Time of : 07:10 Contributing Factors (1) Sepsis: Contributing factors: 2nd to MSSA bacteremia/septicemia and pseudomonas and staphylococcus pneumonia (2) Aspiration pneumonia: (3) Acute metabolic encephalopathy: Contributing factors: 2nd to above (4) Comfort measures only status: (5) Pneumothorax: (6) Septicemia: (7) Acute respiratory failure with hypoxia: (8) Thrombocytopenia: (9) Endocarditis: (10) Pulmonary emboli: (11) CVA (cerebral vascular accident): (12) Underweight: (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
--- NOTE | 2021-11-16 19:46 | Discharge Summary ---
Date of Service November 16, 2021 Admission HPI Per Admitting Provider Turner Keller is a 66 year old male with metastatic squamous cell carcinoma on hospice care who presents to the ER after being found on the ground by hospice earlier today. The patient is unable to provide any history due to altered mental state therefore history taken from hand over sheet and discussion with [facility] hospice. At baseline he has some mild confusion. Today he was awake but unable to answer questions which is unusual for him. He is usually able to communicate with writing. 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 Acutely concerned about generalized weakness, worse on the right side and change in his personality. His tracheostomy was also pulled out. Reportedly his house is now unsafe for him to be alone, he is suspected to not be taking his medications and has no running water. On discussion with [facility] hospice ( ) he has previously refused to sign any paperwork for advance directives, living will, POLST or POA. He has one listed relative who is his son Shine (also listed in our EHR). On discussion with Shine: Discussed wishes given the only other time he was in the ER he refused care. He reports his dad will usually take pills but just likes to avoid the hospital, ok for antibiotics and to continue feeding tube, DNR/DNI. Also notes the patient tends to get drunk by putting alcohol into his feeding tube and this is what he suspect happened. In the ER CXR is concerning for pneumonia. WBC raised to 29.87. He received vancomycin and cefepime. Lactate 3.4. NSS 2L bolus given for fluid resusciation. SARS-COV-2 and influenza PCR negative. He was referred to medicine for admission and ongoing management of sepsis with suspect source pneumonia. Principal Diagnosis Septic shock, MSSA Septicemia, Aspiration pneumonia, Acute on chronic respiratory failure with hypoxia Discharge Exam Constitutional see pronouncement Discharge Data Allergies Allergy/AdvReac Type Severity Reaction Status Date / Time No Known Allergies Allergy Verified 11/11/21 22:05 Consultations 11/11/21 19:27 ED Decision to Admit Stat 11/13/21 19:54 Consult Rubber Process Hand Stat Ordered Studies 11/11/21 15:47 CT head/brain wo con Stat 11/11/21 19:31 CT abd pelvis IV con only Urgent CT angio chest PE protocol Urgent CT head/brain wo con Urgent 11/11/21 19:45 CT soft tissue neck w con Urgent Hospital Course (1) Comfort measures only status: Transitioned to comfort measures only on 11/14 Transitioned out of ICU to medical/surgical floor -Discontinued all lab draws -Discontinued IV fluids, antibiotics, tube feeds, and vasopressors -continue IV morphine but increase frequency to q1hr, or Roxanol through PEG tube as needed for pain or breathlessness -Give lorazepam as needed for anxiety or agitation -Give glycopyrrolate as needed for secretions -Maintain Garces catheter -Hospice nurse visited on 11/14 as he is on GIP 11/16/22 at 0710 (2) Sepsis: with septic shock Secondary to MSSA bacteremia/septicemia and Pseudomonas and Staphylococcus pneumonia Lactate 3.4 and no change after 2 L IVFs initially With large vegetation seen on AV on ECHO and +BCxs both upon admission and on repeat blood cultures from 11/12 as well as 11/13 With possible empyema and asp PNA seen on CT chest Remained hypotensive despite stress dose steroids, IV albumin, and multiple IVF boluses When I spoke with the patient's son on 11/12, he was ok with vasopressors through PIV temporarily if needed, but wanted to talk to his family before deciding about central venous access The patient's son did not arrive to the hospital all day on 11/13 and did not answer multiple phone calls to have further discussions of goals of care and therefore he was transferred to the ICU for vasopressors on the evening of 11/13 His blood pressure did improve with Levophed, however the in service coordinator was able to get in touch with the patient's son on the morning of 11/14 and decision was made to pursue comfort measures only Son spoke with RN on 11/15 and confirmed he just does not want to see his dad in this condition and will not be coming in to visit for end of life -Discontinued all antibiotics -Discontinued vasopressors [employer]ER as above (3) Aspiration pneumonia: with empyema possibly on CT 11/12 and small PTX developed on 11/13 chest x-ray With extensive right sided infiltrate Likely secondary to aspiration event after he was found down and with known stroke. Trach sputum culture growing Pseudomonas and Staph -provided supplemental O2 for comfort- trach collar -Discontinued all antibiotics [employer]ER as above (4) Acute metabolic encephalopathy: Metabolic/Septic encephalopathy Acute encephalopathy secondary to septic shock and septicemia, acute CVA improved somewhat after hypotension improved, but remained significantly confused, not able to communicate Alcohol level negative Transitioned to CAR SEAT [employer]KER (5) Pneumothorax: Small, seen on chest x-ray 11/13 Provided supplemental O2 (6) Septicemia: as above (7) Acute respiratory failure with hypoxia: secondary to PNA, pneumothorax, underlying COPD continued supplemental O2 for comfort (8) Thrombocytopenia: Platelets continued to drop even further to 23,000 Platelets were in the 200s on the day of admission Was started on Lovenox the evening of admission but do not think this is HIT- however for T score low probability at 3 Most likely secondary to sepsis With diffuse petechiae No further lab draws (9) Endocarditis: as above, aortic valve large vegetation seen on echocardiogram With persistent bacteremia with MSSA, he would need CT surgery evaluation but now on comfort measures Discontinued all antibiotics for CAR SEAT [employer]ER (10) Pulmonary emboli: Multiple segmental and subsegmental PEs seen on CT angiogram Was on therapeutic Lovenox which was then placed on hold due to worsening thrombocytopenia No further anticoagulation due to [employer] (11) CVA (cerebral vascular accident): noted on CT head to have acute CVA in left frontal and temporal regions With right-sided hemiparesis and encephalopathy (12) Underweight: BMI 13, secondary to met CA (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: Routine trach care was provided (14) Squamous cell carcinoma of tongue: Noted history of this with metastatic spread - reason for tracheostomy with large neck mass eroding into hyoid and mandible Pursued CAR SEAT MAKER (15) Severe protein-calorie malnutrition: Discontinued tube feeds for CAR SEAT MAKER Disposition-transitioned to CAR SEAT MAKER medical/surgical floor out of ICU, 11/16/22 at 0710, family notified by nursing staff DNR/DNI Total Time Total Time Spent Total Time Spent (In Minutes): 0 min Discharge Plan Discharge Items Patient Disposition: Other Date/Time: 11/16/21 07:40 Coding Level of Care Code None Diagnoses Sepsis A41.9 Aspiration pneumonia J69.0 Acute metabolic encephalopathy G93.41 Comfort measures only status Z51.5 Pneumothorax J93.9 Septicemia A41.9 Acute respiratory failure with hypoxia J96.01 Thrombocytopenia D69.6 Endocarditis I38 Pulmonary emboli I26.99 CVA (cerebral vascular accident) I63.9 Underweight R63.6 Tracheostomy dependent Z93.0 Squamous cell carcinoma of tongue C02.9 Severe protein-calorie malnutrition E43
== END 2021-11-16 10:02 | disposition expired | DRG 871 ==
LOC: ED 15:35 → EDINP 21:18 → SUATTDRO 21:18 → 2S 23:03 → 1E 11-13 19:47 → 3E 11-14 17:55